=== PATIENT | male | born 1965 | race Caucasian/White ===

== ENCOUNTER → 2019-10-20 12:58 | Outpatient (CLI) | payer MEDICARE, SELFPAY ==
[2019-10-20 13:19] LABS: Basophils % 0.3 % (0.1-2.0); Eosinophils # 0.2 K/mm3 (0.0-0.4); Eosinophils % 2.7 % (0.1-12.0); Hematocrit 40.5 % (42.0-52.0); Hemoglobin 13.6 g/dL (14.1-18.0); Lymphocytes # 2.2 K/mm3 (0.7-4.5); Lymphocytes % 31.8 % (10-50); Mean Corpuscular HGB Conc 33.5 g/dL (31.8-35.4); Mean Corpuscular Hemoglobin 30.4 pg (27.0-31.2); Mean Corpuscular Volume 90.5 fl (80-94); Mean Platelet Volume 9.3 fl (7.4-10.4); Monocytes # 0.2 K/mm3 (0.1-1.0); Monocytes % 2.8 % (1.7-9.3); Neutrophils # 4.4 K/mm3 (1.8-7.8); Neutrophils % 62.4 % (37.0-80.0); Platelet Count 61 K/mm3 (142-424); Red Blood Count 4.48 M/mm3 (4.60-6.20)
[2019-10-20 13:43] LABS: Hemoglobin A1C 11.6 % (4.0-6.0)
[2019-10-20 13:48] LABS: Chloride 99 mmol/L (98-107); Potassium 4.6 mmoL/L (3.5-5.1); Sodium 135 mmol/L (136-145)
[2019-10-20 13:50] LABS: Blood Urea Nitrogen 20 mg/dl (9-20); Estimated Glomerular Filt Rate 77 ml/min (>60); GFR (African American) 94 ML/MIN (>60)
[2019-10-20 13:51] LABS: Alanine Aminotransferase 61 U/L (12-78); Albumin/Globulin Ratio 1.4 (1.1-1.8); Alkaline Phosphatase 100 U/L (38-126); Anion Gap 14.6 mEq/L (5-15); Aspartate Amino Transferase 66 U/L (17-59); Bilirubin,Total 0.4 mg/dl (0.2-1.3); Calcium 9.5 mg/dl (8.4-10.2); Carbon Dioxide 26 mmol/L (22.0-30.0); Cholesterol 215 mg/dl (140-200); Globulin 2.9 g/dL (1.3-3.2); Glucose 383 mg/dl (74-100); Total Protein,Serum 6.9 g/dl (6.3-8.2)
[2019-10-20 13:52] LABS: Chol/HDL Ratio 7.2 (1-3.5); HDL Cholesterol 30 mg/dl (40-60)
[2019-10-20 13:53] LABS: Triglycerides 411 mg/dl (30-150)
[2019-10-20 14:03] LABS: Direct LDL Cholesterol 136.53 mg/dL (100-129)
== END ==
PROVIDERS: Visit Provider Internal Medicine Adolescent Medicine
DX: D64.9 Anemia, unspecified (principal)
CPT/HCPCS: 36415; 80053; 80061; 83036; 85025

== ENCOUNTER → 2019-12-15 16:18 | Outpatient (CLI) | payer MEDICARE, SELFPAY ==
[2019-12-15 17:40] LABS: Hemoglobin A1C 10.5 % (4.0-6.0)
== END ==
PROVIDERS: Visit Provider Internal Medicine Adolescent Medicine
DX: E11.9 Type 2 diabetes mellitus without complications (principal)
CPT/HCPCS: 36415; 83036

== ENCOUNTER → 2020-03-24 15:13 | Outpatient (CLI) | payer MEDICARE, SELFPAY ==
--- NOTE | 2020-03-24 16:05 | XR_ITS ---
PROCEDURE: XR CHEST PORTABLE CLINICAL HISTORY: COVID OUTPATIENT Cough COMPARISON: No exams were available for comparison FINDINGS: The cardiomediastinal silhouette and pulmonary vascularity are within normal limits. The lungs are clear without infiltrates, suspicious nodules, or pleural effusions. Faint nodular opacity is noted in the left lower lung zone at the 5th rib anteriorly and in the right lower lung zone at the 6th rib anteriorly and could be due to nipple shadows and may be confirmed with nipple markers.. The right 1st rib is missing in its mid and posterior aspect and could be due to prior resection. Please correlate with surgical history. No acute bony abnormalities. IMPRESSION: As above, no acute finding Dictated by: Eligio Simental MD 03/24/2020 17:17 Eligio Simental MD in [place] 03/24/2020 17:17
[2020-03-24 16:44] LABS: Basophils % 0.3 % (0.1-2.0); Eosinophils # 0.3 K/mm3 (0.0-0.4); Eosinophils % 2.8 % (0.1-12.0); Hematocrit 47.3 % (42.0-52.0); Hemoglobin 15.9 g/dL (14.1-18.0); Lymphocytes # 1.9 K/mm3 (0.7-4.5); Lymphocytes % 16.9 % (10-50); Mean Corpuscular HGB Conc 33.7 g/dL (31.8-35.4); Mean Corpuscular Hemoglobin 29.9 pg (27.0-31.2); Mean Corpuscular Volume 88.7 fl (80-94); Monocytes # 0.4 K/mm3 (0.1-1.0); Monocytes % 3.7 % (1.7-9.3); Neutrophils # 8.4 K/mm3 (1.8-7.8); Neutrophils % 76.3 % (37.0-80.0); Platelet Count 124 K/mm3 (142-424); Red Blood Count 5.33 M/mm3 (4.60-6.20); Red Cell Distribution Width 14.4 % (11.5-17.5)
[2020-03-24 16:51] LABS: Alanine Aminotransferase 31 U/L (12-78); Albumin/Globulin Ratio 1.3 (1.1-1.8); Alkaline Phosphatase 132 U/L (38-126); Anion Gap 15.6 mEq/L (5-15); Aspartate Amino Transferase 37 U/L (17-59); Bilirubin,Total 0.7 mg/dl (0.2-1.3); Blood Urea Nitrogen 16 mg/dl (9-20); Calcium 10.2 mg/dl (8.4-10.2); Carbon Dioxide 30 mmol/L (22.0-30.0); Chloride 96 mmol/L (98-107); Estimated Glomerular Filt Rate 87 ml/min (>60); GFR (African American) 106 ML/MIN (>60); Globulin 3.9 g/dL (1.3-3.2); Glucose 227 mg/dl (74-100); Potassium 4.6 mmoL/L (3.5-5.1); Sodium 137 mmol/L (136-145); Total Protein,Serum 8.9 g/dl (6.3-8.2)
== END ==
PROVIDERS: PCP Internal Medicine Adolescent Medicine; Visit Provider Internal Medicine Adolescent Medicine
DX: Z20.828 Contact with and (suspected) exposure to other viral communicable diseases (principal); U07.1 COVID-19; J18.0 Bronchopneumonia, unspecified organism; R05 Cough
CPT/HCPCS: 36415; 71045; 80053; 85025; U0003

== ENCOUNTER 2020-04-15 10:43 | Inpatient (IN) | payer MEDICARE, SELFPAY ==
[2020-04-15] VITALS (23 sets, daily range): BP systolic 107–154; BP diastolic 61–91; PULSE 52–78; RESP 16–26; TEMP 36.5–36.7; O2SAT 95–99; BMI 32.5; BMI 30.1
--- NOTE | 2020-04-15 | IR_ITS ---
APPROVED REPORT Patient Location: Emergent Rn Pain Management: MONICA Guevara RT (R) PROCEDURES Left heart catheterization Left ventriculogram Selective coronary angiogram Drug-eluting stent deployment to the proximal and mid LAD Drug-eluting stent deployment to the circumflex arteries first obtuse marginal artery INDICATION Acute anterior ST elevation myocardial infarction, Coronary artery disease Informed consent was obtained prior to the procedure. COMPLICATIONS NONE Estimated Blood Loss: LESS THAN 10 ML TECHNIQUE One percent lidocaine used to anesthetize the right anterior aspect of the wrist. The right radial artery was accessed via the Seldinger technique. A 6 Syrian sheath was placed in the right radial artery. 2.5 mg of verapamil, 800 mcg of nitroglycerin, 1mg Lidocaine were given through the arterial sheath. A Poppa catheter was used to perform left heart catheterization left ventriculogram and selective coronary angiogram. Therapeutic heparin had already been administered in the ER and the ACT was therapeutic. The Poppa catheter was placed in the LAD and a Choice PT wire was placed distally. A 2.25 x 22 mm resolute Sarai stent was deployed in the mid LAD at 20 kayden reducing the severe disease to 0%. An additional 3 mm x 15 mm resolute sarai stent was then placed proximal to this yet still overlapping and deployed at 20 kayden reducing the severe stenosis to 0%. There was some angiographic jailing of the first second and third diagonal artery however each vessel had SAGE-3 flow and appeared essentially unchanged from the prestent ostial diagonal stenoses. After achieving excellent angiographic results the wire was pulled into the circumflex artery and a 2 mm balloon was used to predilate the stenosis. Following this a 2 mm x 12 mm resolute sarai stent was placed in the first obtuse marginal artery at 20 kayden reducing the severe stenosis to 0%. A Choice PT floppy wire was placed into the terminal obtuse marginal artery but it was apparent after several minutes of manipulation that this was a chronic occlusion therefore the apparatus was removed the sheath was removed good hemostasis was achieved using TR banding patient was transferred to the postop holding in stable condition. Patient did receive intracoronary nitroglycerin during the procedure. ANGIOGRAPHIC RESULTS The left main artery Has an ostial 20% stenosis The left anterior descending artery Has proximal 80% followed by an additional 80% stenosis followed by tandem 90% stenoses. The first second and third diagonal arteries are all' moderate in size and have stenoses in the ostial segment between 60 and 80%. After stenting the LAD was widely patent with SAGE-3 flow in all 3 diagonal arteries The circumflex artery Is a nondominant vessel. The first obtuse marginal artery has an ostial 90% stenosis while the second obtuse marginal artery is subtotally occluded The right coronary artery Is a large dominant vessel with diffuse moderate atheromatous plaque throughout its entire course there is proximal 50% and mid vessel 40% stenoses with distal 40% stenosis. The entire vessel has mild vascular ectasia The RAMIREZ ventriculogram reveals Preserved at 60% The left ventricular end-diastolic pressure 15 mmHg IMPRESSION Critical disease as described above Successful stenting the proximal to mid LAD severe to critical disease reduced to 0% with 2 contiguous drug-eluting stents Successful stenting of the first obtuse marginal artery critical disease reduced to 0% with 1 drug-eluting stent Chronically occluded second obtuse marginal artery Moderate diffuse vascular disease throughout the dominant right coronary with mild vascular ectasia P
--- NOTE | 2020-04-15 10:49 | ECG_ITS ---
APPROVED REPORT Exam: Resting ECG HR:63 bpm ECG Measurements Heart Rate 63 AXES MI 146 P 23 QRSd 86 QRS 16 QT 386 T 0 QTc 395 Conclusion Normal sinus rhythm Inferior infarct, age undetermined Abnormal ECG Electronically signed by : Damon Valenzuela, 04/19/2020 05:57:07
--- NOTE | 2020-04-15 10:54 | XR_ITS ---
PROCEDURE: XR CHEST PORTABLE CLINICAL HISTORY: chest pain COMPARISON: CR XR CHEST PORTABLE from 03/24/2020 FINDINGS: The cardiomediastinal silhouette and pulmonary vascularity are within normal limits. There are low lung volumes with atelectatic changes in the right lung base. There is increased density in the left lung base consistent with an area of infiltrate and or small effusion. Upper lobes are clear. No acute bony abnormalities. IMPRESSION: 1. Right basilar atelectasis. 2. Consolidation and/or effusion in the left lung base laterally Dictated by: Eligio Simental MD 04/15/2020 13:09 Eligio Simental MD in [place] 04/15/2020 13:09
--- NOTE | 2020-04-15 10:55 | PC.NURSE ---
dr amos paged
--- NOTE | 2020-04-15 10:55 | HMH.EDGENADL ---
ED Disposition Clinical Impression: STEMI (ST elevation myocardial infarction) Qualifiers: Involved coronary artery: unspecified coronary artery Qualified Code(s): I21.3 - ST elevation (STEMI) myocardial infarction of unspecified site Disposition: Still a Patient Condition on Discharge: Serious - Critical Care Critical Care Time: Yes Attestation: On , the high probability of a clinically significant, sudden or life threatening deterioration of the following system(s) required my full and direct attention, intervention and personal management. The time I documented below is in addition to time spent performing reported procedures but includes the following listed in this critical care notation. Total Critical Care Time: 15 Vital system(s) involved:: Circulatory Failure My critical care processes included: Assessment & monitoring of V/S, Initial and Re-exams, Data Review/Interpretation, Coordinating Care, Medication Orders and management, Documentation Medical Decision Making - Medical Records Medical records reviewed: Yes: I reviewed the patient's medical records. MR Comment: Positive COVID-19 test on 03/24/2020. No old EKGs. - Andre Inquiry Pt receiving controlled substance: Yes Andre was queried for this patient: No Reason not queried -: Emergent pt cond-no time Risks and benefits of using a controlled substance: were not discussed with pt by me Vital Signs: 04/15/20 10:43 04/15/20 11:00 Temperature 98 F Temperature Source Oral Pulse Rate [Radial] 62 62 Respiratory Rate 26 H 22 Blood Pressure [Right Arm] 154/82 H 119/61 Blood Pressure Mean [Right Arm] 106 80 Blood Pressure Position [Right Arm] Sitting Sitting 02 Sat by Pulse Oximetry 98 98 Oxygen Delivery Method Room Air Room Air - Lab Data Lab Results 04/15/20 10:45: WBC 10.3, RBC 5.32, Hgb 15.3, Hct 46.8, MCV 88.0, MCH 28.8, MCHC 32.8, RDW 13.8, Plt Count 373, MPV 8.6, Neut % (Auto) 56.9, Lymph % (Auto) 36.6, [place] % (Auto) 3.7, Eos % (Auto) 2.5, Baso % (Auto) 0.4, Neut # (Auto) 5.9, Lymph # (Auto) 3.8, [place] # (Auto) 0.4, Eos # (Auto) 0.3, Baso # (Auto) 0.0 04/15/20 10:45: Sodium 135 L, Potassium 4.1, Chloride 97 L, Carbon Dioxide 27, Anion Gap 15.1 H, BUN 25 H, Creatinine 0.90, Estimated Creat Clear 129, Estimated GFR 87, Est GFR ( Amer) 106, Glucose 521 H*, Calcium 10.7 H, Total Bilirubin 0.4, Direct Bilirubin 0.3, Conjugated Bilirubin 0.0, Indirect Bilirubin 0.1, Unconjugated Bilirubin 0.1, AST 30, ALT 34, Alkaline Phosphatase 109, Total Protein 8.0, Albumin 4.4 04/15/20 10:45: SARS-CoV-2 IgG Ab (Rapid) Positive A, SARS-CoV-2 IgM Ab (Rapid) Positive A Result diagrams: 04/15/20 10:45 04/15/20 10:45 Orders (Tests/Meds): ED MEDICATIONS Generic Name Dose Route Start Last Admin Trade Name Freq PRN Reason Stop Dose Admin Fentanyl Citrate 25 mcg 04/15/20 11:08 Fentanyl 100mcg/2ml Vial IV 04/16/20 11:08 Q3MINP PRN Moderate to Severe Pain Fentanyl Citrate 50 mcg 04/15/20 11:08 04/15/20 11:39 Fentanyl 100mcg/2ml Vial IV 04/16/20 11:08 50 mcg Q3MINP PRN Administration Moderate to Severe Pain Fentanyl Citrate 25 mcg 04/15/20 11:08 Fentanyl 250mcg/5ml Vial IV 04/16/20 11:08 Q3MINP PRN Moderate to Severe Pain Fentanyl Citrate 50 mcg 04/15/20 11:08 Fentanyl 250mcg/5ml Vial IV 04/16/20 11:08 Q3MINP PRN Moderate to Severe Pain Flumazenil 0.2 mg 04/15/20 11:08 Flumazenil 0.1mg/Ml 5ml Vial IV 04/15/20 23:00 NEEDED PRN Sedation Heparin Sodium (Porcine) 10,000 unit 04/15/20 11:08 Heparin 1,000 Units/Ml 10ml Vial (Automobile Service Advisor) IV 04/15/20 15:08 NEEDED PRN Emergency Box Tool Turret Lathe Set Up Operator Sodium Chloride 1,000 mls @ 999 mls/hr 04/15/20 11:15 04/15/20 10:55 Sod Chlor 0.9% 1000ml Bag IV 04/15/20 12:15 999 mls/hr .Q1H1M NOAH Administration Sodium Chloride 1,000 mls @ 25 mls/hr 04/15/20 11:15 Sod Chlor 0.9% 1000ml Bag IV 04/16/20 11:08 .Q25H NOAH
--- NOTE | 2020-04-15 10:56 | PC.NURSE ---
dr mcclure well on with Dr Tirado
[2020-04-15 11:03] LABS: Chloride 97 mmol/L (98-107); Potassium 4.1 mmoL/L (3.5-5.1); Sodium 135 mmol/L (136-145)
[2020-04-15 11:06] LABS: Alanine Aminotransferase 34 U/L (12-78); Albumin Level 4.4 g/dl (3.5-5.0); Alkaline Phosphatase 109 U/L (38-126); Anion Gap 15.1 mEq/L (5-15); Aspartate Amino Transferase 30 U/L (17-59); Bilirubin,Direct 0.3 mg/dl (0.0-0.4); Bilirubin,Indirect 0.1 mg/dL (0.0-0.9); Bilirubin,Total 0.4 mg/dl (0.2-1.3); Bilirubin,Unconjugated 0.1 mg/dL (0.0-1.1); Blood Urea Nitrogen 25 mg/dl (9-20); Calcium 10.7 mg/dl (8.4-10.2); Carbon Dioxide 27 mmol/L (22.0-30.0); Creatinine Clearance Estimated 129 mL/min (50-200); Estimated Glomerular Filt Rate 87 ml/min (>60); GFR (African American) 106 ML/MIN (>60)
[2020-04-15 11:08] LABS: Glucose 521 mg/dl (74-100)
--- NOTE | 2020-04-15 11:10 | PC.NURSE ---
to dental laboratory manager per stretcher
[2020-04-15 11:11] LABS: Basophils % 0.4 % (0.1-2.0); Eosinophils # 0.3 K/mm3 (0.0-0.4); Eosinophils % 2.5 % (0.1-12.0); Hematocrit 46.8 % (42.0-52.0); Hemoglobin 15.3 g/dL (14.1-18.0); Lymphocytes # 3.8 K/mm3 (0.7-4.5); Lymphocytes % 36.6 % (10-50); Mean Corpuscular HGB Conc 32.8 g/dL (31.8-35.4); Mean Corpuscular Hemoglobin 28.8 pg (27.0-31.2); Mean Platelet Volume 8.6 fl (7.4-10.4); Monocytes # 0.4 K/mm3 (0.1-1.0); Monocytes % 3.7 % (1.7-9.3); Neutrophils # 5.9 K/mm3 (1.8-7.8); Neutrophils % 56.9 % (37.0-80.0); Platelet Count 373 K/mm3 (142-424); Red Blood Count 5.32 M/mm3 (4.60-6.20); Red Cell Distribution Width 13.8 % (11.5-17.5); White Blood Count 10.3 K/mm3 (4.8-10.8)
[2020-04-15 11:37] LABS: Coronavirus 19 IgG Antibody Positive (Negative); Coronavirus 19 IgM Antibody Positive (Negative)
--- NOTE | 2020-04-15 11:38 | HMH.CNCARD ---
History of Present Illness Consult date: 04/15/20 Requesting physician: Damon Valenzuela Consult reason: chest pain Chief complaint: chest pain Additional Medical History:: 1. CAD A. CO with ДМИТРИЙ, 2016, Dr. Stone, [place], [place] 2. HTN 3. HLD 4. DM, insulin requiring A. Hgb A1c 10.5, 11/2019 5. COVID infection, PCR positive, 03/24/2020 History of present illness: 54 yo WM with known CAD, HTN, HLD and IDDM presented to ER via EMS for chest pain with bilateral arm pain reminiscent of prior [place] symptoms that started about 8 AM. One SL NTG en route. EKG concerning for STEMI and was sent to Dr. Bess for confirmation. STEMI alert called and pt taken to labor relations supervisor after receiving a second SL NTG, Brilinta, Heparin and ASA. Recent diagnosis of COVID infection earlier this month (03-27-20) [facility] History Medical History: Reports:: Coronary Artery Disease, Diabetes Mellitus Type 1, Hyperlipidemia, Hypertension *Have you ever received a pneumonia vaccine?: Yes *Have you received a flu vaccine this season?: Yes - *Social History *Occupational Status:: employed *Travel in the last 8 weeks: Inside the [place] Family Hx:: Non-contributory Meds Allergies Allergy/AdvReac Type Severity Reaction Status Date / Time codeine Allergy Unknown Verified 04/15/20 11:38 Exam Vital signs and Labs for Last 24 Hours: Temp Pulse Resp BP Pulse Ox 98 F 62 22 119/61 98 04/15/20 10:43 04/15/20 11:00 04/15/20 11:00 04/15/20 11:00 04/15/20 11:00 Laboratory Results - last 24 hr 04/15/20 10:45: WBC 10.3, RBC 5.32, Hgb 15.3, Hct 46.8, MCV 88.0, MCH 28.8, MCHC 32.8, RDW 13.8, Plt Count 373, MPV 8.6, Neut % (Auto) 56.9, Lymph % (Auto) 36.6, [place] % (Auto) 3.7, Eos % (Auto) 2.5, Baso % (Auto) 0.4, Neut # (Auto) 5.9, Lymph # (Auto) 3.8, [place] # (Auto) 0.4, Eos # (Auto) 0.3, Baso # (Auto) 0.0 04/15/20 10:45: Sodium 135 L, Potassium 4.1, Chloride 97 L, Carbon Dioxide 27, Anion Gap 15.1 H, BUN 25 H, Creatinine 0.90, Estimated Creat Clear 129, Estimated GFR 87, Est GFR ( Amer) 106, Glucose 521 H*, Calcium 10.7 H, Total Bilirubin 0.4, Direct Bilirubin 0.3, Conjugated Bilirubin 0.0, Indirect Bilirubin 0.1, Unconjugated Bilirubin 0.1, AST 30, ALT 34, Alkaline Phosphatase 109, Total Protein 8.0, Albumin 4.4 04/15/20 10:45: SARS-CoV-2 IgG Ab (Rapid) Positive A, SARS-CoV-2 IgM Ab (Rapid) Positive A I & O for Last 24 hours: Intake & Output 04/12/20 04/13/20 04/14/20 04/15/20 11:59 11:59 11:59 11:59 Weight 220 lb - Constitutional moderate distress - *Routine HEENT Exam Head: Present: normocephalic Eye: Present: EOMI, PERRL ENT: Present: mucous membranes moist - *Routine Neck Exam Present: supple. Absent: lymphadenopathy - *Routine Respiratory Exam Present: CTA bilaterally - *Routine Cardiovascular Exam Present: RRR - *Routine Abdominal Exam Present: soft, normoactive bowel sounds. Absent: tenderness - *Routine Extremities Exam Absent: cyanosis, clubbing, edema - *Routine Skin Exam Present: warm. Absent: rash - *Routine Neurological Exam Present: alert, oriented X3 Review of Systems - Review of Systems Review of systems:: pertinent systems reviewed and negative unless documented below - *Cardiovascular Reports chest pain Assessment and Plan (1) STEMI (ST elevation myocardial infarction) Status: Acute Qualifiers: Involved coronary artery: unspecified coronary artery Qualified Code(s): I21.3 - ST elevation (STEMI) myocardial infarction of unspecified site Category: Medical Code(s): I21.3 - ST elevation (STEMI) myocardial infarction of unspecified site (2) HTN (hypertension) Status: Acute Category: Medical Code(s): I10 - Essential (primary) hypertension (3) HLD (hyperlipidemia) Status: Acute Category: Medical Code(s): E78.5 - Hyperlipidemia, unspecified (4) DM (diabetes mellitus) Status: Acute Category: Medical Code(s): E11.9 - Type 2 diabetes mellitus w
[2020-04-15 11:42] LABS: Troponin I < 0.01 ng/ml (0.00-0.034)
[2020-04-15 12:24] LABS: Hemoglobin A1C 12.1 % (4.0-6.0)
--- NOTE | 2020-04-15 12:48 | PC.NURSE ---
Pt arrived to the floor at this time.
[2020-04-15 13:06] LABS: Adenovirus,PCR Not Detected (NotDetected); Coronavirus 229E Not Detected (NotDetected); Coronavirus NL63 Not Detected (NotDetected); Coronavirus OC43 Not Detected (NotDetected); Coronovirus HKU1,PCR Not Detected (NotDetected); Human Metapneumovirus Not Detected (NotDetected); Influenza A, PCR Not Detected (NotDetected); Influenza AH1, 2009 Not Detected (NotDetected); Influenza AH1, PCR Not Detected (NotDetected); Influenza AH3,PCR Not Detected (NotDetected); Influenza B, PCR Not Detected (NotDetected); Parainfluenza 1, PCR Not Detected (NotDetected); Rhinovirus/Enterovirus Not Detected (NotDetected)
[2020-04-15 13:07] LABS: Bordetella Pertussis Not Detected (NotDetected); Chlamydophila Pneumoniae, PCR Not Detected (NotDetected); Mycoplasma Pneumoniae, PCR Not Detected (NotDetected); Parainfluenza 2, PCR Not Detected (NotDetected); Parainfluenza 3, PCR Not Detected (NotDetected); Parainfluenza 4, PCR Not Detected (NotDetected); Respiratory Syncytial Virus Not Detected (NotDetected)
--- NOTE | 2020-04-15 14:00 | HMH.HP ---
*Admission Date: 04/15/20 *Chief complaint: STEMI *History of present illness: 54 yo WM with known CAD, HTN, HLD and IDDM presented to ER via EMS for chest pain with bilateral arm pain reminiscent of prior [place] symptoms that started about 8 AM. One SL NTG en route. EKG concerning for STEMI and was sent to Dr. Bess for confirmation. STEMI alert called and pt taken to clinical laboratory technician after receiving a second SL NTG, Brilinta, Heparin and ASA. Recent diagnosis of COVID infection earlier this month (03-27-20) Above note per cardiology. Patient gives me an extremely long, convoluted and difficult to understand history that since diagnosis with Covid he has not felt well and has had multiple chest pains reminiscent of previous pleurisy infections however yesterday he awoke at 3:30 AM and decided to clean out his freezer and began to have some chest pain which resolved after he ate 2 fried eggs and a couple of pieces of bread. He then slept well but when he awoke this morning drove his car to have it serviced and when he arrived at the mechanics began to have increasing anginal pain radiating into the arms and summoned EMS which resulted in the above procedure, he is now being monitored in our stepdown unit after having received 3 stents. He continues to have anterior chest pain and lots of malaise. [facility] History I have reviewed the patient's past medical history: Yes Medical History: Reports:: Coronary Artery Disease, Diabetes Mellitus Type 2, Hyperlipidemia, Hypertension, Myocardial Infarction Denies:: Cancer, Diabetes Mellitus Type 1, MRSA *Have you ever received a pneumonia vaccine?: Yes *Have you received a flu vaccine this season?: Yes Comment:: Medical noncompliance Other Surgeries: Yes: Cardiac Catheterization, Colonoscopy Amputation: No Fractures: No - *Social History Last grade of school completed: High school graduate Smoking Status: Never smoker Alcohol Intake: never *Occupational Status:: disabled Housing: house Household Members: spouse *Travel in the last 8 weeks: None Family Hx:: Cancer, Diabetes, Hyperlipidemia, Hypertension Review of Systems - Review of Systems Review of systems:: pertinent systems reviewed and negative unless documented below Patient reports loss of lethargy, fatigue, chest pain as noted. Reports that he feels horrible. Denies worsening shortness of air, denies GI symptoms with increasing ability to take fluids and. Denies skin rash, joint pains, neurologic changes. Meds Allergies Allergy/AdvReac Type Severity Reaction Status Date / Time codeine Allergy Unknown Verified 04/15/20 11:38 Exam Vital signs and Labs for Last 24 Hours: Temp Pulse Resp BP Pulse Ox 98.1 F 58 L 16 111/70 97 04/15/20 13:30 04/15/20 13:30 04/15/20 13:30 04/15/20 13:30 04/15/20 13:30 Laboratory Results - last 24 hr 04/15/20 10:45: WBC 10.3, RBC 5.32, Hgb 15.3, Hct 46.8, MCV 88.0, MCH 28.8, MCHC 32.8, RDW 13.8, Plt Count 373, MPV 8.6, Neut % (Auto) 56.9, Lymph % (Auto) 36.6, [place] % (Auto) 3.7, Eos % (Auto) 2.5, Baso % (Auto) 0.4, Neut # (Auto) 5.9, Lymph # (Auto) 3.8, [place] # (Auto) 0.4, Eos # (Auto) 0.3, Baso # (Auto) 0.0 04/15/20 10:45: Sodium 135 L, Potassium 4.1, Chloride 97 L, Carbon Dioxide 27, Anion Gap 15.1 H, BUN 25 H, Creatinine 0.90, Estimated Creat Clear 129, Estimated GFR 87, Est GFR ( Amer) 106, Glucose 521 H*, Calcium 10.7 H, Total Bilirubin 0.4, Direct Bilirubin 0.3, Conjugated Bilirubin 0.0, Indirect Bilirubin 0.1, Unconjugated Bilirubin 0.1, AST 30, ALT 34, Alkaline Phosphatase 109, Troponin I < 0.01, Total Protein 8.0, Albumin 4.4 04/15/20 10:45: SARS-CoV-2 IgG Ab (Rapid) Positive A, SARS-CoV-2 IgM Ab (Rapid) Positive A 04/15/20 10:45: Hemoglobin A1c 12.1 H I & O for Last 24 hours: Intake & Output 04/13/20 04/14/20 04/15/20 04/16/20 11:59 11:59 11:59 11:59 Weight 220 lb 204 lb Narrative: Patient is awake, responsive, oriented x4, he is an extremely unusual personalit
[2020-04-15 14:31] LABS: Coronavirus 19, PCR Detected (NotDetected)
--- NOTE | 2020-04-15 14:42 | HMH.PHAVTE ---
[facility] Pharmacy VTE Monitoring - Patient Demographics Admission date: 04/15/20 Report Date: 04/15/20 Time: 14:42 Allergies/Adverse Reactions: Patient Allergies codeine Allergy (Unknown, Verified 04/15/20 11:38) Height: 1.75 m Weight: 92.533 kg Patient Problems: Current Active Problems STEMI (ST elevation myocardial infarction) (Acute) HTN (hypertension) (Acute) HLD (hyperlipidemia) (Acute) DM (diabetes mellitus) (Acute) - VTE Risk Labs: VTE Related Lab Results Hgb 15.3 g/dL (14.1-18.0) 04/15/20 10:45 Hct 46.8 % (42.0-52.0) 04/15/20 10:45 Plt Count 373 K/mm3 (142-424) 04/15/20 10:45 BUN 25 mg/dl (9-20) H 04/15/20 10:45 Creatinine 0.90 mg/dl (0.66-1.25) 04/15/20 10:45 Estimated Creat Clear 129 mL/min (50-200) 04/15/20 10:45 Was VTE Risk Assessment Performed: Yes VTE Score: 3 VTE Risk Level: Low Risk Clinical Trial Participant: No - Prophylaxis VTE Prophylaxis Ordered?: Yes Types of VTE Prophylaxis: TEDS Knee High
[2020-04-15 14:55] LABS: CATHL Activated Clotting Time > 400 SEC (74-125)
[2020-04-15 14:56] LABS: CATHL Activated Clotting Time 386 SEC (74-125)
--- NOTE | 2020-04-15 15:07 | HMH.PHAINT ---
HOME MEDICATION LIST COMPLETED USING LIST FROM CLINIC PHARMACY
[2020-04-15 17:06] LABS: POC Glucose,Bedside 278 (70-110)
--- NOTE | 2020-04-15 20:08 | PC.NURSE ---
PT IS RESTING IN BED. RECEIVED PAIN MEDICATION FOR CHEST AND ARM DISCOMFORT AFTER ARRIVING BACK TO THE FLOOR FROM THE MAINFRAME PROGRAMMER. PT IS ALERT AND ORIENTED X4. LUNG SOUNDS DIMINISHED. ABDOMEN SOFT/NON TENDER WITH ACTIVE BOWEL SOUNDS. 2+ PALPABLE PULSES. DISCOLORATION NOTED TO BLE THAT PT STATES HAS BEEN THERE SINCE HE WAS IN HIS 20'S. 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 VSS. WILL CONTINUE TO MONITOR.
[2020-04-15 20:36] LABS: POC Glucose,Bedside 362 (70-110)
[2020-04-16] VITALS (8 sets, daily range): BP systolic 119–130; BP diastolic 62–89; PULSE 60–96; RESP 16–19; TEMP 36.6–36.9; O2SAT 94–97; BMI 30.2
--- NOTE | 2020-04-16 02:19 | PC.NURSE ---
PT CONT. TO C/O INTERMITTED CHEST PAIN. PRN MEDICATION EVENTUALLY WOULDNT HELP. DR. SALCEDO PAGED AND ORDERED PERCOCET 10MG Q4HR PRN, AND MORPHINE 4MG Q15 NEEDED. PT GIVEN 4MG OF MORPHINE AT 0150. PT STATES PAIN IS RELIEVED WHEN HE LAYS ON HIS RIGHT SIDE. PT IS NOW RESTING W/O COMPLAINTS.
[2020-04-16 06:16] LABS: Basophils % 0.3 % (0.1-2.0); Eosinophils # 0.3 K/mm3 (0.0-0.4); Eosinophils % 1.9 % (0.1-12.0); Hematocrit 40.8 % (42.0-52.0); Lymphocytes # 2.6 K/mm3 (0.7-4.5); Lymphocytes % 19.8 % (10-50); Mean Corpuscular HGB Conc 32.8 g/dL (31.8-35.4); Mean Corpuscular Volume 88.5 fl (80-94); Mean Platelet Volume 8.3 fl (7.4-10.4); Monocytes # 0.6 K/mm3 (0.1-1.0); Monocytes % 4.5 % (1.7-9.3); Neutrophils # 9.8 K/mm3 (1.8-7.8); Neutrophils % 73.6 % (37.0-80.0); Platelet Count 316 K/mm3 (142-424); Red Blood Count 4.61 M/mm3 (4.60-6.20); Red Cell Distribution Width 13.9 % (11.5-17.5); White Blood Count 13.4 K/mm3 (4.8-10.8)
[2020-04-16 06:29] LABS: Hemoglobin 13.5 g/dL (14.1-18.0)
[2020-04-16 06:37] LABS: POC Glucose,Bedside 206 (70-110)
--- NOTE | 2020-04-16 08:15 | HMH.ACPN2 ---
Internal Medicine - PN: Subj *Date: 04/16/20 *Time: 09:24 Interval history: Remained hemodynamically stable overnight. Requiring regular sliding scale insulin. Continues to have chest pain. On interview this morning, reports he has a stimulator and pain pump in his back. However his pain has breakthrough and the only thing that helps are Percocet . Denies fever, nausea, vomiting. Blood pressure appropriate. No evidence of arrhythmia overnight. Exam Vital signs and Labs for Last 24 Hours: Temp Pulse Resp BP Pulse Ox 98.5 F 91 H 17 127/83 97 04/16/20 04:00 04/16/20 06:00 04/16/20 06:00 04/16/20 06:00 04/16/20 06:00 Laboratory Results - last 24 hr 04/15/20 10:45: WBC 10.3, RBC 5.32, Hgb 15.3, Hct 46.8, MCV 88.0, MCH 28.8, MCHC 32.8, RDW 13.8, Plt Count 373, MPV 8.6, Neut % (Auto) 56.9, Lymph % (Auto) 36.6, [place] % (Auto) 3.7, Eos % (Auto) 2.5, Baso % (Auto) 0.4, Neut # (Auto) 5.9, Lymph # (Auto) 3.8, [place] # (Auto) 0.4, Eos # (Auto) 0.3, Baso # (Auto) 0.0 04/15/20 10:45: Sodium 135 L, Potassium 4.1, Chloride 97 L, Carbon Dioxide 27, Anion Gap 15.1 H, BUN 25 H, Creatinine 0.90, Estimated Creat Clear 129, Estimated GFR 87, Est GFR ( Amer) 106, Glucose 521 H*, Calcium 10.7 H, Total Bilirubin 0.4, Direct Bilirubin 0.3, Conjugated Bilirubin 0.0, Indirect Bilirubin 0.1, Unconjugated Bilirubin 0.1, AST 30, ALT 34, Alkaline Phosphatase 109, Troponin I < 0.01, Total Protein 8.0, Albumin 4.4 04/15/20 10:45: SARS-CoV-2 IgG Ab (Rapid) Positive A, SARS-CoV-2 IgM Ab (Rapid) Positive A 04/15/20 10:45: Hemoglobin A1c 12.1 H 04/15/20 12:33: Activated Clotting Time 386 H* 04/15/20 12:37: Chlamy pneumoniae PCR Not detected, Adenovirus (PCR) Not detected, B. pertussis DNA (PCR) Not detected, Coronavirus OC43 (PCR) Not detected, Coronavirus HKU1 (PCR) Not detected, Coronavirus 229E (PCR) Not detected, SARS-CoV-2 (PCR) Detected A, Coronavirus NL63 (PCR) Not detected, Human Metapneumovir PCR Not detected, Influenza A (H1) PCR Not detected, Influ A (H1N1/09) PCR Not detected, Influenza A (H3) PCR Not detected, Influenza Type A (PCR) Not detected, Influenza Type B (PCR) Not detected, M. pneumoniae (PCR) Not detected, Parainfluenza 1 (PCR) Not detected, Parainfluenza 2 (PCR) Not detected, Parainfluenza 3 (PCR) Not detected, Parainfluenza 4 (PCR) Not detected, RSV (PCR) Not detected, Entero/Rhino (PCR) Not detected 04/15/20 13:05: Activated Clotting Time > 400 H* 04/15/20 16:26: POC Glucose 278 H 04/15/20 20:08: POC Glucose 362 H* 04/16/20 05:55: POC Glucose 206 H 04/16/20 05:57: WBC 13.4 H D, RBC 4.61, Hgb 13.5 L D, Hct 40.8 L, MCV 88.5, MCH 29.0, MCHC 32.8, RDW 13.9, Plt Count 316, MPV 8.3, Neut % (Auto) 73.6, Lymph % (Auto) 19.8, [place] % (Auto) 4.5, Eos % (Auto) 1.9, Baso % (Auto) 0.3, Neut # (Auto) 9.8 H, Lymph # (Auto) 2.6, [place] # (Auto) 0.6, Eos # (Auto) 0.3, Baso # (Auto) 0.0 I & O for Last 24 hours: Intake & Output 04/13/20 04/14/20 04/15/20 04/16/20 23:59 23:59 23:59 23:59 Intake Total 720 / 1120 1050 / 1050 Output Total 400 / 400 250 / 250 Balance 320 / 720 800 / 800 Weight 92.533 kg 92.646 kg Narrative: - Constitutional average body habitus, disheveled, obese (BMI 30) - *Routine HEENT Exam Head: Present: normocephalic Eye: Present: EOMI, PERRL ENT: Present: mucous membranes moist - *Routine Neck Exam Present: supple. Absent: lymphadenopathy - *Routine Respiratory Exam Present: CTA bilaterally - *Routine Cardiovascular Exam Present: RRR - *Routine Abdominal Exam Present: soft, normoactive bowel sounds. Absent: tenderness - *Routine Extremities Exam Present: Minimal edema (Multiple brawny skin changes of prior edema with multiple varicosities). Absent: cyanosis, clubbing - *Routine Skin Exam Present: warm. Absent: rash - *Routine Neurological Exam Present: alert, oriented X3 Assessment and Plan (1) STEMI (ST elevation myocardial infarction) Status: Acute Qualifiers: Involved co
[2020-04-16 09:15] LABS: Anion Gap 11.3 mEq/L (5-15); Blood Urea Nitrogen 17 mg/dl (9-20); Carbon Dioxide 28 mmol/L (22.0-30.0); Chloride 104 mmol/L (98-107); Creatinine Clearance Estimated 135 mL/min (50-200); Estimated Glomerular Filt Rate 100 ml/min (>60); GFR (African American) 121 ML/MIN (>60); Glucose 225 mg/dl (74-100); Potassium 4.3 mmoL/L (3.5-5.1); Sodium 139 mmol/L (136-145)
[2020-04-16 09:45] LABS: Calcium 8.9 mg/dl (8.4-10.2)
--- NOTE | 2020-04-16 12:19 | [facility].DCSUM ---
General - General Admission date:: 04/15/20 Discharge date: 04/16/20 HPI HPI: 54 yo WM with known CAD, HTN, HLD and IDDM presented to ER via EMS for chest pain with bilateral arm pain reminiscent of prior [place] symptoms that started about 8 AM. One SL NTG en route. EKG concerning for STEMI and was sent to Dr. Bess for confirmation. STEMI alert called and pt taken to label machine operator after receiving a second SL NTG, Brilinta, Heparin and ASA. Recent diagnosis of COVID infection earlier this month (03-27-20) Above note per cardiology. Patient gives me an extremely long, convoluted and difficult to understand history that since diagnosis with Covid he has not felt well and has had multiple chest pains reminiscent of previous pleurisy infections however yesterday he awoke at 3:30 AM and decided to clean out his freezer and began to have some chest pain which resolved after he ate 2 fried eggs and a couple of pieces of bread. He then slept well but when he awoke this morning drove his car to have it serviced and when he arrived at the mechanics began to have increasing anginal pain radiating into the arms and summoned EMS which resulted in the above procedure, he is now being monitored in our stepdown unit after having received 3 stents. He continues to have anterior chest pain and lots of malaise. Hospital Course Hospital Course: Mr. Small was admitted with STEMI. Left heart cath performed a placement of 5 stents. Improvement in coronary artery flow. Initiated on dual antiplatelet therapy, beta-evens, SPENCER inhibitor, statin, aspirin. Did well overnight without any abnormal cardiac arrhythmias. Continues to have chest pain however this appears to be an acute on chronic issue. Moderately managed with p.o. pain meds. Patient remained hemodynamically stable, on room air, afebrile, without any bleeding issues. Meeting criteria for discharge home to continue convalescence from as Covid infection 3 weeks ago and continued general inflammation and fatigue. Managed on sliding scale insulin during admission. Plan to address uncontrolled diabetes in the outpatient setting. Patient additionally seems quite anxious. was concerned for his anxiety. Will address anxiety and potentially start medication in the outpatient setting and follow-up. Will follow up with our office in the next week Objective Vital signs: Temp Pulse Resp BP Pulse Ox 97.9 F 86 16 129/89 97 04/16/20 12:00 04/16/20 12:00 04/16/20 12:00 04/16/20 12:00 04/16/20 12:00 Narrative: - Constitutional average body habitus, disheveled, obese (BMI 30) - *Routine HEENT Exam Head: Present: normocephalic Eye: Present: EOMI, PERRL ENT: Present: mucous membranes moist - *Routine Neck Exam Present: supple. Absent: lymphadenopathy - *Routine Respiratory Exam Present: CTA bilaterally - *Routine Cardiovascular Exam Present: RRR - *Routine Abdominal Exam Present: soft, normoactive bowel sounds. Absent: tenderness - *Routine Extremities Exam Present: Minimal edema (Multiple brawny skin changes of prior edema with multiple varicosities). Absent: cyanosis, clubbing - *Routine Skin Exam Present: warm. Absent: rash - *Routine Neurological Exam Present: alert, oriented X3 Results Labs on day of discharge: Labs from last 24 hours 04/16/20 04/16/20 04/16/20 05:57 05:57 05:55 WBC 13.4 H D RBC 4.61 Hgb 13.5 L D Hct 40.8 L MCV 88.5 MCH 29.0 MCHC 32.8 RDW 13.9 Plt Count 316 MPV 8.3 Neut % (Auto) 73.6 Lymph % (Auto) 19.8 [place] % (Auto) 4.5 Eos % (Auto) 1.9 Baso % (Auto) 0.3 Neut # (Auto) 9.8 H Lymph # (Auto) 2.6 [place] # (Auto) 0.6 Eos # (Auto) 0.3 Baso # (Auto) 0.0 Activated Clotting Time Sodium 139 Potassium 4.3 Chloride 104 Carbon Dioxide 28 Anion Gap 11.3 BUN 17 D Creatinine 0.80 Estimated Creat Clear 135 Estimated GFR 100 Es
[2020-04-16 12:21] LABS: POC Glucose,Bedside 243 (70-110)
--- NOTE | 2020-04-16 13:43 | [facility]H.PHACLD ---
Mirza Small has received discharge medication counseling on the following medications: PATIENT CURRENTLY IS TAKING CRESTOR 40 MG HS, METOPROLOL SUCCINATE 50 MG DAILY, ASPIRIN 81 MG EC DAILY, AND LISINOPRIL 5 MG DAILY. MD ADDING BRILINTA 90 MG BID.
--- NOTE | 2020-04-16 15:01 | PC.NURSE ---
PT WAS DISCHARGED HOME WITH NEW PRESCRIPTIONS BRILLINTA AND OXYCODONE. PT WILL FOLLOW UP WITH CARDIOLOGY AND . PT'S STATED SHE FELT THAT HER NEEDED PROFESSIONAL HELP AND NEEDED TO BE MEDICATED FOR HIS DEPRESSION AND ANGER. STATED THAT LIVING WITH HER THE LAST FEW WEEKS HAS NOT BEEN EASY. SHE STATES HE BLAMES HER FOR THE REASON HE IS SICK. WAS INFORMED OF 'S CONCERNS AND HE STATED THEY WOULD ADDRESS IT AT HIS FOLLOW UP APPOINTMENT.
--- NOTE | 2020-04-16 15:19 | [facility].PNCARD ---
Subjective Date: 04/16/20 Time: 15:19 Principal diagnosis: STEMI Interval history: Patient reportedly was stable and requested to go home today. After speaking with Dr. Bess, Dr. Dillard did release the patient home prior to my visit today. Exam Vital signs and Labs for Last 24 Hours: Temp Pulse Resp BP Pulse Ox 97.9 F 86 16 129/89 97 04/16/20 12:00 04/16/20 12:00 04/16/20 12:00 04/16/20 12:00 04/16/20 12:00 Laboratory Results - last 24 hr 04/15/20 16:26: POC Glucose 278 H 04/15/20 20:08: POC Glucose 362 H* 04/16/20 05:55: POC Glucose 206 H 04/16/20 05:57: WBC 13.4 H D, RBC 4.61, Hgb 13.5 L D, Hct 40.8 L, MCV 88.5, MCH 29.0, MCHC 32.8, RDW 13.9, Plt Count 316, MPV 8.3, Neut % (Auto) 73.6, Lymph % (Auto) 19.8, [place] % (Auto) 4.5, Eos % (Auto) 1.9, Baso % (Auto) 0.3, Neut # (Auto) 9.8 H, Lymph # (Auto) 2.6, [place] # (Auto) 0.6, Eos # (Auto) 0.3, Baso # (Auto) 0.0 04/16/20 05:57: Sodium 139, Potassium 4.3, Chloride 104, Carbon Dioxide 28, Anion Gap 11.3, BUN 17 D, Creatinine 0.80, Estimated Creat Clear 135, Estimated GFR 100, Est GFR ( Amer) 121, Glucose 225 H D, Calcium 8.9 D 04/16/20 12:14: POC Glucose 243 H I & O for Last 24 hours: Intake & Output 04/14/20 04/15/20 04/16/20 04/17/20 11:59 11:59 11:59 11:59 Intake Total 2250 / 2250 720 / 720 Output Total 650 / 650 Balance 1600 / 1600 720 / 720 Weight 220 lb 204 lb 4 oz Progress Note: A&P (1) STEMI (ST elevation myocardial infarction) Status: Acute (2) HTN (hypertension) Status: Acute (3) HLD (hyperlipidemia) Status: Acute (4) DM (diabetes mellitus) Status: Acute (5) COVID-19 Status: Acute (6) Hyperglycemia due to type 2 diabetes mellitus Status: Acute (7) Class 1 obesity Status: Chronic (8) Chronic low back pain Status: Chronic Assessment and Plan for All Diagnoses:: Discharge instructions per Dr. Dillard. Patient was on DAPT, yovani, beta-evens and statin therapy.
== END 2020-04-16 14:40 | disposition home or self-care (01) | DRG 246 ==
LOC: ER 11:10 → CATHLAB 11:11 → 2ND 12:12
PROVIDERS: Physician Assistant; Admitting Provider Internal Medicine Adolescent Medicine; Emergency Provider Emergency Medicine; PCP Internal Medicine Adolescent Medicine; Referring Provider Internal Medicine; Visit Provider Internal Medicine Adolescent Medicine
PROC: 027136Z Dilation of Coronary Artery, Two Arteries with Three Drug-eluting Intraluminal Devices, Percutaneous Approach (ICD-10-PCS; principal; 2020-04-15 13:05)
DX: I21.02 ST elevation (STEMI) myocardial infarction involving left anterior descending coronary artery (principal); U07.1 COVID-19; I10 Essential (primary) hypertension; E11.65 Type 2 diabetes mellitus with hyperglycemia; Z79.4 Long term (current) use of insulin; Z79.82 Long term (current) use of aspirin; Z79.899 Other long term (current) drug therapy
CPT/HCPCS: 36415; 71045; 80048; 80076; 82962; 83036; 84484; 85025; 85347; 86328; 87581; 87633; 87798; 92929; 92941; 93005; 93458; 96365; 96367; 99152; 99153; 99284; C1725; C1769; C1876; C9601; C9606; J1644; Q9967; U0003

== ENCOUNTER → 2020-05-05 14:16 | Outpatient (CLI) | payer MEDICARE, SELFPAY ==
--- NOTE | 2020-05-05 14:25 | CA_ITS ---
APPROVED REPORT EXAM: Comprehensive 2D, Doppler, and color-flow Echocardiogram Alterations Sewer: Deb Galvan RCS, RVS Ht: 5 ft 9 in Wt: 206lbs BSA: 2.09 BP: 132/79 mmHg Indications: cad-STEMI w/ 5 coronary stents, HTN, HLD 2D Dimensions IVSd 0.92 cm LVEF (Visual) 77.90 % PWd 0.66 cm LVEF (Fields's) 71.20 % LVDd 5.29 cm LV Volume 147.10 mL LVDs 2.81 cm LA Volume 46.20 mL Aortic Root 3.14 cm LA Volume Index 21.60 mL/m2 (M/F) 16-34 Left Atrium 3.98 cm LVOT 1.84 cm (M/F) 1.5-2.5 M-Mode Dimensions RVDd 3.90 cm (0.9-2.6) LA Diam 4.36 cm (1.9-4.0) LVDd 4.79 cm (3.5-5.7) Ao Diam 3.63 cm (2.0-3.7) LVDs 2.98 cm (3.5-5.7) IVSd 0.93 cm (0.6-1.1) PWd 0.76 cm (0.6-1.1) EF (Teich) 67.90% EPSs 0.48 cm FS 37.80% EDV (Teich) 107.00 mL TAPSE 2.04 (<1.7) ESV (Teich) 34.40 mL LV Diastology E Decel Time 173.00 (160-240 msec) E/A Ratio 0.88 MED E' 4.60 (< 7 cm/sec) MED A' 9.40 cm/s E'/MED E' Ratio 11.35 (>14) LAT E' 6.90 (<10 cm/sec) LAT A' 9.40 cm/s E/LAT E' Ratio 7.57 (>14) Aortic Valve AI PHT 540.00 ms AO Peak GR. 7.60 mmHg Mitral Valve MV E Max Pankaj. 52.00 (40-130 cm/s) MV A Velocity 59.00 (40-130 cm/s) E/A Ratio 0.88 MV Decel. Time 173.00 (160-240 ms) MV PHT 51.00 ms Pulmonary Valve PV Peak Velocity 124.00 (50-150 cm/s) AZ End VMAX 130.00 cm/s Tricuspid Valve TR P. Velocity 287.00 cm/s RAP Estimate 10.00 mmHg RVSP 43.00 mmHg Left Ventricle Left atrium is mildly enlarged, left ventricle is normal size, mild concentric left ventricular hypertrophy, visually estimated ejection fraction 50%, there is moderate hypokinesis involving the inferior basal and basal septal wall. Grade 1 diastolic dysfunction seen without tissue Doppler evidence of raise left atrial pressure. Right Ventricle Right atrium and right ventricle mildly enlarged with normal contractility. Aortic Valve Aortic valve is minimally thickened and fibrosed, there is no aortic stenosis or aortic insufficiency. Mitral Valve Mitral valve is grossly normal, there is trace mitral regurgitation. Tricuspid Valve Tricuspid valve grossly normal, there is trace tricuspid regurgitation, tricuspid regurgitation jet velocity is inadequate for calculation of the right ventricular systolic pressure. Pulmonic Valve Pulmonic valve is poorly visualized. Great Vessels Aortic root is normal size. Pericardium No significant pericardial effusion noted. Conclusion 1. Biatrial enlargement, normal left ventricular size, mild concentric left ventricular hypertrophy, visually estimated ejection fraction 50% with segmental wall motion abnormality described above, grade 1 diastolic dysfunction seen without tissue Doppler evidence of raise left atrial pressure. 2. Mildly enlarged right ventricle with normal contractility. 3. Trace mitral and tricuspid regurgitation. 4. No significant pericardial effusion noted. Electronically signed by : Tony Resendiz, 05/06/2020 14:51:28
== END ==
PROVIDERS: PCP Internal Medicine Adolescent Medicine; Visit Provider Physician Assistant
DX: E11.69 Type 2 diabetes mellitus with other specified complication (principal); E78.49 Other hyperlipidemia; I10 Essential (primary) hypertension; I21.3 ST elevation (STEMI) myocardial infarction of unspecified site; I25.10 Atherosclerotic heart disease of native coronary artery without angina pectoris; R94.31 Abnormal electrocardiogram [ECG] [EKG]; Z79.4 Long term (current) use of insulin
CPT/HCPCS: 93306

== ENCOUNTER 2020-07-02 22:36 | Emergency (ER) | payer MEDICARE, OTHER, SELFPAY ==
--- NOTE | 2020-07-02 22:16 | ECG_ITS ---
APPROVED REPORT Exam: Resting ECG HR:81 bpm ECG Measurements Heart Rate 81 AXES AL 158 P 56 QRSd 84 QRS 52 QT 386 T 43 QTc 448 Conclusion Normal sinus rhythm Normal ECG Electronically signed by : Damon Valenzuela, 07/04/2020 07:27:55
[2020-07-02 22:37] VITALS: BP 140/89; PULSE 89; RESP 21; TEMP 36.9; O2SAT 98; BMI 31.0
--- NOTE | 2020-07-02 22:52 | XR_ITS ---
PROCEDURE: XR CHEST 2V CLINICAL HISTORY: chest pain COMPARISON: CR XR CHEST PORTABLE from 03/24/2020 CR XR CHEST PORTABLE from 04/15/2020 FINDINGS: The cardiomediastinal silhouette and pulmonary vascularity are within normal limits. Vague nodular opacity in left lung base possibly due to nipple shadow and overlapping granuloma/summation artifact. Follow-up may confirm. There are other granulomas present. No lobar consolidation or collapse. Epidural stimulator device in the lower thoracic region. IMPRESSION: No acute finding. Possible left lower lobe nodule. Follow-up may confirm stability Dictated by: Eligio Simental MD 07/03/2020 08:05 Eligio Simental MD in [place] 07/03/2020 08:05
[2020-07-02 23:04] LABS: Basophils # 0.1 K/mm3 (0-0.2); Basophils % 0.4 % (0.1-2.0); Eosinophils # 0.1 K/mm3 (0.0-0.4); Hematocrit 39.7 % (42.0-52.0); Hemoglobin 12.9 g/dL (14.1-18.0); Lymphocytes # 3.4 K/mm3 (0.7-4.5); Lymphocytes % 32.9 % (10-50); Mean Corpuscular HGB Conc 32.5 g/dL (31.8-35.4); Mean Corpuscular Hemoglobin 28.3 pg (27.0-31.2); Mean Corpuscular Volume 87.2 fl (80-94); Mean Platelet Volume 7.8 fl (7.4-10.4); Monocytes # 0.5 K/mm3 (0.1-1.0); Monocytes % 4.5 % (1.7-9.3); Neutrophils # 6.3 K/mm3 (1.8-7.8); Neutrophils % 61.2 % (37.0-80.0); Platelet Count 161 K/mm3 (142-424); Red Blood Count 4.55 M/mm3 (4.60-6.20); White Blood Count 10.2 K/mm3 (4.8-10.8)
[2020-07-02 23:08] LABS: Anion Gap 14.7 mEq/L (5-15); Blood Urea Nitrogen 19 mg/dl (9-20); Calcium 9.6 mg/dl (8.4-10.2); Carbon Dioxide 25 mmol/L (22.0-30.0); Chloride 106 mmol/L (98-107); Creatinine Clearance Estimated 123 mL/min (50-200); Estimated Glomerular Filt Rate 87 ml/min (>60); GFR (African American) 106 ML/MIN (>60); Glucose 203 mg/dl (74-100); Potassium 4.7 mmoL/L (3.5-5.1); Sodium 141 mmol/L (136-145)
[2020-07-02 23:13] LABS: C-Reactive Protein 7.5 mg/L (0-4)
[2020-07-02 23:23] LABS: Troponin I < 0.01 ng/ml (0.00-0.034)
[2020-07-02 23:27] LABS: Procalcitonin 0.137 ng/mL (0.0-2.0)
[2020-07-02 23:31] LABS: Erythrocyte Sedimentation Rate 27 mm/hr (0-20)
--- NOTE | 2020-07-03 00:30 | [facility].EDCP ---
ED Disposition Clinical Impression: Chest pain Qualifiers: Chest pain type: precordial pain Qualified Code(s): R07.2 - Precordial pain Disposition: Home, Self-Care Condition on Discharge: Good Instructions: DI for Chest Pain Additional Instructions: see pcp for follow up and recheck if needed - see card sunday - resume meds Referrals: Damon Valenzuela MD [Primary Care Provider] - - Critical Care Critical Care Time: No Attestation: On 07/02/20, the high probability of a clinically significant, sudden or life threatening deterioration of the following system(s) required my full and direct attention, intervention and personal management. The time I documented below is in addition to time spent performing reported procedures but includes the following listed in this critical care notation. Medical Decision Making - Medical Records Medical records reviewed: Yes: I reviewed the patient's medical records. - Andre Inquiry Pt receiving controlled substance: No Vital Signs: 07/02/20 22:37 Temperature 98.4 F Temperature Source Oral Pulse Rate [Right] 89 Respiratory Rate 21 Blood Pressure [Right Arm] 140/89 Blood Pressure Mean [Right Arm] 106 Blood Pressure Source [Right Arm] Automatic Cuff 02 Sat by Pulse Oximetry 98 Oxygen Delivery Method Room Air - Lab Data Lab results reviewed: Yes: I reviewed the patient's lab results. Lab Results 07/02/20 22:30: WBC 10.2, RBC 4.55 L, Hgb 12.9 L, Hct 39.7 L, MCV 87.2, MCH 28.3, MCHC 32.5, RDW 14.0, Plt Count 161, MPV 7.8, Neut % (Auto) 61.2, Lymph % (Auto) 32.9, [place] % (Auto) 4.5, Eos % (Auto) 1.0, Baso % (Auto) 0.4, Neut # (Auto) 6.3, Lymph # (Auto) 3.4, [place] # (Auto) 0.5, Eos # (Auto) 0.1, Baso # (Auto) 0.1, ESR 27 H 07/02/20 22:30: Sodium 141, Potassium 4.7, Chloride 106, Carbon Dioxide 25, Anion Gap 14.7, BUN 19, Creatinine 0.90, Estimated Creat Clear 123, Estimated GFR 87, Est GFR ( Amer) 106, Glucose 203 H, Calcium 9.6, Troponin I < 0.01, C-Reactive Protein 7.5 H, Procalcitonin 0.137 07/03/20 01:20: Troponin I < 0.01 Result diagrams: 07/02/20 22:30 07/02/20 22:30 Orders (Tests/Meds): ED MEDICATIONS Generic Name Dose Route Start Last Admin Trade Name Freq PRN Reason Stop Dose Admin Sodium Chloride 1,000 mls @ 999 mls/hr 07/02/20 23:45 07/02/20 23:42 Sod Chlor 0.9% 1000ml Bag IV 07/03/20 00:45 999 mls/hr .Q1H1M NOAH Administration Sodium Chloride 8 ml 07/03/20 00:06 Sodium Chloride 0.9% 10ml Vial IV 08/02/20 00:05 NEEDED PRN dilute pepcid Discontinued Medications Generic Name Dose Route Start Last Admin Trade Name Freq PRN Reason Stop Dose Admin Aspirin 324 mg 07/02/20 23:40 07/02/20 23:42 Aspirin 81mg Chewable Tablet PO 07/02/20 23:41 324 mg ONCE ONE Administration Famotidine 20 mg 07/03/20 00:06 07/03/20 00:07 Famotidine 20mg/2ml Vial IV 07/03/20 00:07 20 mg ONCE ONE Administration Metoclopramide HCl 10 mg 07/02/20 23:40 07/02/20 23:42 Metoclopramide Hcl 10mg/2ml Vial IVP 07/02/20 23:41 10 mg ONCE ONE Administration Nitroglycerin 0.4 mg 07/02/20 22:54 07/02/20 22:55 Nitroglycerin 0.4mg Sl Tablet SL 07/02/20 22:55 1 tab ONCE ONE Administration Ondansetron HCl 4 mg 07/02/20 23:40 07/02/20 23:42 Ondansetron 4mg/2ml Vial IV 07/02/20 23:41 4 mg ONCE ONE Administration ORDERS Category Date Time Status CXR 2 view (NOT portable) [XR chest 2V] Stat Exams 07/02/20 22:52 Taken Covid-19 Nasal PCR ([facility]) Routine Lab 07/03/20 00:00 Received Troponin I Q3H Lab 07/03/20 05:00 Ordered - Radiology Data #1 Image(s): Chest Image Reviewed: Yes I reviewed the patient's radiology image Preliminary Findings: Normal/NAD - ECG Data Tracing #1 Normal Sinus Rhythm: Yes Ischemic changes: non-specific ST-T wave changes - Reevaluation(s) Time: 02:35 Reevaluation #1: doing better Medical Decision Narrative: pt doing better and card enz ox
[2020-07-03 01:53] LABS: Troponin I < 0.01 ng/ml (0.00-0.034)
[2020-07-03 02:30] VITALS: BP 119/69; PULSE 65; RESP 14; O2SAT 98
--- NOTE | 2020-07-03 02:40 | PC.NURSE ---
called pt's and left vm
[2020-07-03 02:47] VITALS: BP 117/69; PULSE 66; RESP 17; TEMP 36.7; O2SAT 99
--- NOTE | 2020-07-03 03:45 | PC.NURSE ---
notified after numerous attempts that patient was ready to be discharged
[2020-08-30 11:15] LABS: POC Glucose,Bedside 178 (70-110)
== END 2020-07-03 04:52 | disposition home or self-care (01) ==
PROVIDERS: Emergency Provider Emergency Medicine; PCP Internal Medicine Adolescent Medicine
DX: R07.2 Precordial pain (principal); Z20.822 Contact with and (suspected) exposure to COVID-19; E11.65 Type 2 diabetes mellitus with hyperglycemia; I25.10 Atherosclerotic heart disease of native coronary artery without angina pectoris; I10 Essential (primary) hypertension; I25.2 Old myocardial infarction; Z79.899 Other long term (current) drug therapy
CPT/HCPCS: 71046; 80048; 82962; 84145; 84484; 85025; 85651; 86140; 93005; 96365; 96375; 99282; J2405; U0003

== ENCOUNTER → 2020-07-12 07:17 | Outpatient (CLI) | payer MEDICARE, SELFPAY ==
--- NOTE | 2020-07-12 07:31 | CT_ITS ---
PROCEDURE INFORMATION: Exam: CT Thoracic Spine Without Contrast Exam date and time: 07/12/2020 7:31 AM Age: 54 years old Clinical indication: Pain in thoracic spine; Additional info: Thoracic pain TECHNIQUE: Imaging protocol: Computed tomography images of the thoracic spine without contrast. Radiation optimization: All CT scans at this facility use at least one of these dose optimization techniques: automated exposure control; mA and/or kV adjustment per patient size (includes targeted exams where dose is matched to clinical indication); or iterative reconstruction. COMPARISON: No relevant prior studies available. FINDINGS: Tubes, catheters and devices: A spinal stimulator device is present. The leads terminate at the inferior T9 level. Vertebrae: Bone mineralization is decreased, suggestive of osteopenia. No acute fracture is identified. Alignment is anatomic. Discs/Spinal canal/Neural foramina: No significant spinal canal stenosis. Soft tissues: Unremarkable. Lungs: Several calcified granulomas are noted. Several small (less than 8 mm) noncalcified pulmonary nodules are noted in the lungs.For patients at low risk (minimal or absent history of smoking and of other known risk factors), recommend CT Chest at 3-6 months, then consider CT Chest at 18-24 months. For patients at high risk (history of smoking or of other known risk factors), recommend CT Chest at 3-6 months, then CT Chest at 18-24 months. (Reference: Laurel H, et al. Guidelines for Management of Incidental Pulmonary Nodules Detected on CT Images: From the Fleischner Society 2017. Radiology. 2017;284(1):228-243. IMPRESSION: 1. No acute abnormality. 2. Chronic findings as discussed above.
--- NOTE | 2020-07-12 07:31 | CT_ITS ---
PROCEDURE INFORMATION: Exam: CT Lumbar Spine Without Contrast Exam date and time: 07/12/2020 7:31 AM Age: 54 years old Clinical indication: Low back pain; Additional info: Lumbar spondylosis TECHNIQUE: Imaging protocol: Computed tomography images of the lumbar spine without contrast. Radiation optimization: All CT scans at this facility use at least one of these dose optimization techniques: automated exposure control; mA and/or kV adjustment per patient size (includes targeted exams where dose is matched to clinical indication); or iterative reconstruction. COMPARISON: No relevant prior studies available. FINDINGS: Tubes, catheters and devices: A spinal stimulator device and an intrathecal pain pump is present. The stimulator device leads terminate at the inferior T9 level, as seen on the thoracic spine CT. The pain pump lead terminates at the T10 level. Vertebrae: No acute fracture. Normal alignment. Discs/Spinal canal/Neural foramina: Mild degenerative changes of the lumbar spine are present. There is no significant spinal canal stenosis or severe neural foraminal narrowing. Kidneys and ureters: A punctate nonobstructing stone is present within the right kidney. Soft tissues: Unremarkable. IMPRESSION: 1. No acute abnormality. 2. Chronic findings as discussed above.
== END ==
PROVIDERS: PCP Internal Medicine Adolescent Medicine; Visit Provider Anesthesiology Pain Medicine
DX: M54.6 Pain in thoracic spine (principal); M47.816 Spondylosis without myelopathy or radiculopathy, lumbar region
CPT/HCPCS: 72128; 72131

== ENCOUNTER → 2020-08-05 06:36 | Outpatient (CLI) | payer MEDICARE, SELFPAY ==
--- NOTE | 2020-08-05 06:36 | NM_ITS ---
APPROVED REPORT Exam: Nuclear Stress Test Indication: chest pain..fatigue Patient Location: Outpatient Stress Tech: Nancy Barrera [place] Tech:Sarai Krueger SARYGlen RT(R)(N) Ht: 5 ft 9 in Wt: 220 lbs HR: 64 bpm BP: 120/70 mmHg BSA: 2.15 m2 BMI: 32.4 History: chest pain..fatigue Procedure: Patient received a 0.4 mg of intravenous Lexiscan, resting heart rate 64 bpm, resting blood pressure 120/70 mmHg, with Lexiscan maximum heart rate achived was 87 bpm which is Less than 85 % of the maximum predicted heart rate and blood pressure was 132/73 mmHg. With Lexiscan, patient denied any complaint of chest pain. Electrocardiogram Resting electrocardiogram showed sinus rhythm, with Lexiscan there is less than 1.[address] segment depression noted for the baseline EKG. The EKG portion of the Lexiscan is nondiagnostic. Cardiac Stress and Resting SPECT Images: Cardiac Stress and Resting SPECT images were obtained using technetium 99m Myoview 31.2 mCi stress and 10.72 mCi at rest. Gated SPECT analysis of segmental wall motion and calculation of the ejection fraction also done. Prone images were also obtained. Cardiac stress and resting SPECT images showed reversible ischemia involving the anterior apical and inferolateral wall suggestive of multivessel coronary artery disease, computer derived ejection fraction is 51% with moderate anterior apical wall hypokinesis. Right ventricle is normal size and contractility. Conclusion: 1. The EKG portion of the Lexiscan is nondiagnostic. 2. Scintigraphic evidence of reversible ischemia involving the anterior apical and inferolateral wall suggestive of multivessel coronary artery disease, computer derived ejection fraction 51% with segmental wall motion abnormality described above, right ventricle is normal size and contractility. 3. Abnormal Lexiscan Myoview study. Electronically signed by : Tony Resendiz, 08/05/2020 11:15:40
--- NOTE | 2020-08-05 06:36 | CA_ITS ---
APPROVED REPORT Exam: Pharmacologic Technologist: Nancy Barrera, Stress Nurse: YASSINE Ht: 5 ft 9 in Wt: 214 lbs BSA: 2.13 m2 HR: 64 bpm BP: 120/70 mmHg Medical History Medical History: HTN, , Hyperlipidemia, Diabetes Medications: Aspirin,,,,, Metoprolol,,,,, Diazepam,,,,, Terbinafin,,,,, Imdur,,,,, TicaAGRELOR,,,,, Sertaline,,,,, PantoprazLE,,,,, RoSUVASatin,,,,, SucCINATE,,,,, INSULIN GLARGINE,,,,, LisinoRIL,,,,, Cardiac Risk Factors: HTN, Hyperlipidemia, Diabetes Stress Test Details Test: LEXISCAN HR Resting HR: 67 bpm Max Heart Rate (APMHR): 164.387121 bpm Max HR Achieved: 94 bpm Target HR (85% APMHR): 139.439442 bpm % of APMHR: 57.32 Recovery HR: 75 bpm BP Resting BP: 120/70 mmHg Max BP: 132/72 mmHg Recovery BP: 119.0/71.0 mmHg ECG Resting ECG: NSR Clinical Exercise duration: 04:01 min Highest Stage Achieved: Exercise capacity: 1.0 METs Stress ECG Conclusion PT WAS SOA, MALAISE, WITH SOME MILD STOMACH DISCOMFORT. NO CP. NO ARRHYTHMIAS. NO SIGNIFICANT ST CHANGES. UNREMARKABLE LEXISCAN STRESS. MYOVIEW IMAGES REPORTED SEPERATELY. Test Summary REST 04:22 . . 67 . 120/ 70 . . Stage 1 . . . . . . . Cardiolite injected Stage 1 01:00 . . 78 . . . . Stage 2 01:00 . . 87 . 132/ 72 . . Stage 3 01:00 . . 82 . 132/ 73 . . Stage 4 01:00 . . 80 . 130/ 74 . . Stage 4 01:01 . . 80 . 130/ 74 . Stop exercise at 04:01 RECOVERY 01:00 . . 78 . 117/ 73 . . RECOVERY 02:00 . . 77 . 117/ 73 . . RECOVERY 03:00 . . 76 . 119/ 71 . . RECOVERY 03:20 . . 77 . 119/ 71 . . Electronically signed by : Tony Resendiz, 08/05/2020 11:13:51
== END ==
LOC: RAD 06:36
PROVIDERS: PCP Internal Medicine Adolescent Medicine; Visit Provider Nurse Practitioner Family
DX: E78.49 Other hyperlipidemia (principal); I10 Essential (primary) hypertension; I20.9 Angina pectoris, unspecified
CPT/HCPCS: 78452; 93017; A9502; J2785

== ENCOUNTER → 2020-08-05 15:15 | Outpatient (CLI) | payer MEDICARE, SELFPAY ==
[2020-08-05 17:03] LABS: Prostate Specific Ag Screen 0.2 ng/ml (0.0-4.0)
== END ==
PROVIDERS: Visit Provider Urology
DX: Z12.5 Encounter for screening for malignant neoplasm of prostate (principal)
CPT/HCPCS: 36415; G0103

== ENCOUNTER → 2020-08-18 13:18 | Outpatient (CLI) | payer MEDICARE, SELFPAY ==
[2020-08-18 13:50] LABS: Basophils % 0.4 % (0.1-2.0); Eosinophils # 0.4 K/mm3 (0.0-0.4); Eosinophils % 4.3 % (0.1-12.0); Hematocrit 40.9 % (42.0-52.0); Hemoglobin 13.8 g/dL (14.1-18.0); Lymphocytes # 2.7 K/mm3 (0.7-4.5); Lymphocytes % 27.9 % (10-50); Mean Corpuscular HGB Conc 33.7 g/dL (31.8-35.4); Mean Corpuscular Hemoglobin 29.1 pg (27.0-31.2); Mean Corpuscular Volume 86.6 fl (80-94); Monocytes # 0.4 K/mm3 (0.1-1.0); Monocytes % 3.8 % (1.7-9.3); Neutrophils # 6.2 K/mm3 (1.8-7.8); Neutrophils % 63.6 % (37.0-80.0); Platelet Count 114 K/mm3 (142-424); Red Blood Count 4.73 M/mm3 (4.60-6.20); White Blood Count 9.8 K/mm3 (4.8-10.8)
[2020-08-18 14:04] LABS: Anion Gap 14.7 mEq/L (5-15); Blood Urea Nitrogen 21 mg/dl (9-20); Carbon Dioxide 23 mmol/L (22.0-30.0); Chloride 105 mmol/L (98-107); Estimated Glomerular Filt Rate 100 ml/min (>60); GFR (African American) 121 ML/MIN (>60); Glucose 238 mg/dl (74-100); Potassium 4.7 mmoL/L (3.5-5.1); Sodium 138 mmol/L (136-145)
== END ==
PROVIDERS: Visit Provider Nurse Practitioner Family
DX: E78.5 Hyperlipidemia, unspecified (principal); I10 Essential (primary) hypertension; I20.9 Angina pectoris, unspecified; R31.9 Hematuria, unspecified; R94.39 Abnormal result of other cardiovascular function study
CPT/HCPCS: 36415; 80048; 85025; U0003

== ENCOUNTER 2020-08-19 07:26 | Day surgery (SDC) | payer MEDICARE, SELFPAY ==
[2020-08-19] VITALS (12 sets, daily range): BP systolic 104–135; BP diastolic 59–102; PULSE 60–80; RESP 13–18; TEMP 37.2; O2SAT 95–98; BMI 31.3
--- NOTE | 2020-08-19 | IR_ITS ---
APPROVED REPORT Patient Location: Outpatient Bag Hanger: MONICA Corona RT (R) PROCEDURES Left heart catheterization Left ventriculogram Selective coronary angiogram INDICATION Known coronary artery disease, High risk abnormal Myoview, Progressive angina pectoris, Informed consent was obtained prior to the procedure. COMPLICATIONS None Estimated Blood Loss: Less than 10 mls TECHNIQUE One percent lidocaine used to anesthetize the right anterior aspect of the wrist. The right radial artery was accessed via the Seldinger technique. A 6 Bengali sheath was placed in the right radial artery. 2.5 mg of verapamil, 800 mcg of nitroglycerin, 1mg Lidocaine and 5000 U Heparin were given through the arterial sheath. The trap catheter was also used to perform left heart catheterization, left ventriculogram and selective coronary angiogram. At the end of the procedure the sheath was removed good hemostasis was achieved using Traclet band, patient was transferred to the postop holding area in stable condition. ANGIOGRAPHIC RESULTS The left main artery Has an ostial 50% eccentric stenosis The left anterior descending artery Is ostially patent and then has a proximal through mid vessel stent which is widely patent with excellent proximal and distal transitioning with no angiographic evidence of in-stent restenosis. The mid LAD then has eccentric 20% stenoses and then at the proximal portion of the distal segment then has diffuse small vessel 70 to 80% stenoses. The LAD is small less than 1 mm in diameter at this area The circumflex artery Small nondominant and has a proximal 30% stenosis The right coronary artery Is a large dominant vessel and has a proximal concentric 60 to 70% hazy stenosis followed by poststenotic dilatation followed by distal 30% atheromatous plaque. A stent in the posterior lateral ventricular branch is widely patent. Very distally there are tandem 80 and the 90% stenoses in a vessel that is 1 mm in diameter. A large posterior descending artery branch has proximal to mid vessel 90% stenoses The RAMIREZ ventriculogram reveals Preserved at 55% The left ventricular end-diastolic pressure 20 mmHg IMPRESSION 50% ostial left main disease which constitutes a severe stenosis Severe disease in the distal LAD which is too small for percutaneous or surgical revascularization Vestigial nondominant circumflex artery Severe disease in a posterior lateral ventricular branch which explains the abnormal Myoview which is not a candidate for bypass grafting due to its posterior location Preserved ejection fraction Elevated LVEDP Angiographic evidence of diffuse endothelial dysfunction PLAN 1. Patient could be offered bypass surgery however I do not believe this form of revascularization is warranted given his anatomy. The LAD stenosis is mostly in the distal segment therefore a ARRIETA graft would not benefit the patient 2. The posterior lateral ventricular branch is also severely diseased which is not able to be surgically bypassed. This vessel is an excellent candidate for stenting 3. I would like to discuss the options with patient and offer him a surgical consultation if he chooses that route however I believe he would be much better served with stenting of the ostial left main artery as well as stenting of the large posterior lateral ventricular branch 4. LDL less than 55 5. Addition of nitrates and Ranexa Electronically signed by : Syed Bess, 08/19/2020 10:57:20
== END 2020-08-19 12:10 | disposition home or self-care (01) ==
LOC: CATHLAB 07:27
PROVIDERS: PCP Internal Medicine Adolescent Medicine; Visit Provider Internal Medicine
DX: I25.118 Atherosclerotic heart disease of native coronary artery with other forms of angina pectoris (principal); E11.9 Type 2 diabetes mellitus without complications; Z79.4 Long term (current) use of insulin; Z79.899 Other long term (current) drug therapy; I10 Essential (primary) hypertension; E78.5 Hyperlipidemia, unspecified; I25.2 Old myocardial infarction
CPT/HCPCS: 93458; 99152; C1725; C1769; J1644; Q9967

== ENCOUNTER 2020-08-20 11:26 | Day surgery (SDC) | payer MEDICARE, SELFPAY ==
[2020-08-20] VITALS (10 sets, daily range): BP systolic 116–163; BP diastolic 67–86; PULSE 58–71; RESP 18–20; O2SAT 94–98; BMI 30.7
--- NOTE | 2020-08-20 | IR_ITS ---
APPROVED REPORT Patient Location: Outpatient PROCEDURES Drug-eluting stent deployment to the right coronary artery's posterior lateral ventricular branch Drug-eluting stent deployment to the ostial left main artery INDICATION Coronary artery disease, High risk abnormal Myoview, Angina pectoris, Preference of stenting versus coronary bypass surgery Informed consent was obtained prior to the procedure. COMPLICATIONS NONE Estimated Blood Loss: LESS THAN 10 ML TECHNIQUE 1% lidocaine used anesthetize right groin the right femoral artery was accessed via Salinger technique and a 6 Austrian sheath was placed in the right femoral artery. Therapeutic heparin was administered giving a therapeutic ACT. A JR4 guide catheter was placed in the right coronary artery and a choice floppy wire was placed distally in the posterior lateral branch. A 2 mm x 12 mm resolute Áng[place] stent was deployed at 20 kayden reducing the severe to critical stenosis to 0%. SAGE-3 flow was present before and after the procedure. Following this the JL4 guide catheter was placed in the left main artery and the same wire was placed in the LAD. A 4 mm x 12 mm resolute [place] stent was placed in the ostial proximal segment and deployed at 24 kayden reducing the stenosis. SAGE-3 flow was present before and after the procedure. At the end of the procedure the JR4 catheter was placed back in the right coronary artery to perform additional diagnostic angiography. After the angiographic results were deemed excellent the apparatus was removed the groin was reprepped closure changed sheath was removed and hemostasis achieved using Perclose device patient was transferred to the postop putting in stable condition IMPRESSION Successful stenting of a critically diseased dominant right coronary artery/posterior lateral ventricular branch reducing the stenosis to 0% Successful stenting of a severely just ostial left main artery reducing the stenosis to 0% PLAN 1. Continue dual antiplatelet therapy 2. Risk factor modification 3. Cardiac rehabilitation 4. Avoidance of tobacco products 5. LDL less than 55 Electronically signed by : Syed Bess, 08/20/2020 12:36:01
[2020-08-20 11:59] LABS: Basophils % 0.2 % (0.1-2.0); Eosinophils # 0.2 K/mm3 (0.0-0.4); Eosinophils % 1.2 % (0.1-12.0); Hematocrit 38.4 % (42.0-52.0); Lymphocytes # 3.4 K/mm3 (0.7-4.5); Lymphocytes % 23.7 % (10-50); Mean Corpuscular HGB Conc 33.8 g/dL (31.8-35.4); Mean Corpuscular Hemoglobin 29.3 pg (27.0-31.2); Mean Corpuscular Volume 86.6 fl (80-94); Mean Platelet Volume 8.5 fl (7.4-10.4); Monocytes # 0.6 K/mm3 (0.1-1.0); Monocytes % 4.4 % (1.7-9.3); Neutrophils % 70.4 % (37.0-80.0); Platelet Count 136 K/mm3 (142-424); Red Blood Count 4.43 M/mm3 (4.60-6.20); White Blood Count 14.2 K/mm3 (4.8-10.8)
[2020-08-20 12:02] LABS: Chloride 99 mmol/L (98-107); Potassium 4.8 mmoL/L (3.5-5.1); Sodium 135 mmol/L (136-145)
[2020-08-20 12:05] LABS: Anion Gap 17.8 mEq/L (5-15); Blood Urea Nitrogen 26 mg/dl (9-20); Calcium 9.5 mg/dl (8.4-10.2); Carbon Dioxide 23 mmol/L (22.0-30.0); Creatinine Clearance Estimated 100 mL/min (50-200); Estimated Glomerular Filt Rate 69 ml/min (>60); GFR (African American) 84 ML/MIN (>60)
[2020-08-20 12:13] LABS: Glucose 432 mg/dl (74-100)
[2020-08-20 12:57] LABS: CATHL Activated Clotting Time 288 SEC (74-125)
[2020-08-20 13:50] LABS: POC Glucose,Bedside 337 (70-110)
--- NOTE | 2020-08-20 14:21 | HMH.PHACLD ---
Mirza Small has received discharge medication counseling on the following medications: PATIENT IS CURRENTLY TAKING ASPIRIN EC 81 MG DAILY, BRILINTA 90 MG BID, CRESTOR 40 MG HS, LISINOPRIL 5 MG DAILY, AND METOPROLOL SUCCINATE 50 MG DAILY.
== END 2020-08-20 15:26 | disposition home or self-care (01) ==
LOC: CATHLAB 11:27
PROVIDERS: PCP Internal Medicine Adolescent Medicine; Visit Provider Internal Medicine
DX: I25.118 Atherosclerotic heart disease of native coronary artery with other forms of angina pectoris (principal); E11.9 Type 2 diabetes mellitus without complications; Z79.4 Long term (current) use of insulin; Z79.899 Other long term (current) drug therapy; I10 Essential (primary) hypertension; E78.5 Hyperlipidemia, unspecified; Z95.5 Presence of coronary angioplasty implant and graft
CPT/HCPCS: 80048; 82962; 85025; 85347; 92928; 99152; C1725; C1760; C1769; C1876; C1894; C9600; J1644; Q9967

== ENCOUNTER → 2020-09-04 09:09 | Outpatient (CLI) | payer MEDICARE, SELFPAY | PROVIDERS: Visit Provider Urology | DX: R31.0 Gross hematuria (principal); Z01.812 Encounter for preprocedural laboratory examination; Z11.52 Encounter for screening for COVID-19 | CPT/HCPCS: U0003 ==

== ENCOUNTER 2020-09-06 10:32 | Day surgery (SDC) | payer MEDICARE, SELFPAY ==
[2020-08-17 13:37] VITALS: BMI 32.2
[2020-09-06 10:46] VITALS: BP 133/81; PULSE 73; RESP 18; TEMP 36.4; O2SAT 98
[2020-09-06 10:59] LABS: POC Glucose,Bedside 415 (70-110)
[2020-09-06 12:30] VITALS: BP 127/68; PULSE 74; RESP 18; TEMP 36.7; O2SAT 96
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
== END 2020-09-06 12:34 | disposition home or self-care (01) ==
LOC: OUTP 10:33
PROVIDERS: PCP Internal Medicine Adolescent Medicine; Visit Provider Urology
DX: I10 Essential (primary) hypertension (principal); I25.10 Atherosclerotic heart disease of native coronary artery without angina pectoris; E11.9 Type 2 diabetes mellitus without complications; E78.5 Hyperlipidemia, unspecified; I25.2 Old myocardial infarction; R31.0 Gross hematuria; R35.0 Frequency of micturition
CPT/HCPCS: 52000; 82962

== ENCOUNTER → 2020-09-20 08:21 | Outpatient (CLI) | payer MEDICARE, SELFPAY ==
[2020-09-20 08:52] LABS: Basophils % 0.3 % (0.1-2.0); Eosinophils # 0.3 K/mm3 (0.0-0.4); Eosinophils % 3.6 % (0.1-12.0); Hematocrit 39.5 % (42.0-52.0); Hemoglobin 12.6 g/dL (14.1-18.0); Lymphocytes # 2.4 K/mm3 (0.7-4.5); Lymphocytes % 28.2 % (10-50); Mean Corpuscular Hemoglobin 28.5 pg (27.0-31.2); Mean Corpuscular Volume 89.2 fl (80-94); Mean Platelet Volume 7.8 fl (7.4-10.4); Monocytes # 0.5 K/mm3 (0.1-1.0); Monocytes % 5.2 % (1.7-9.3); Neutrophils # 5.4 K/mm3 (1.8-7.8); Neutrophils % 62.6 % (37.0-80.0); Platelet Count 155 K/mm3 (142-424); Red Blood Count 4.43 M/mm3 (4.60-6.20); Red Cell Distribution Width 14.4 % (11.5-17.5); White Blood Count 8.6 K/mm3 (4.8-10.8)
[2020-09-20 09:47] LABS: Alanine Aminotransferase 43 U/L (12-78); Albumin Level 4.1 g/dl (3.5-5.0); Alkaline Phosphatase 129 U/L (38-126); Anion Gap 16.5 mEq/L (5-15); Aspartate Amino Transferase 41 U/L (17-59); Bilirubin,Direct 0.4 mg/dl (0.0-0.4); Bilirubin,Total 0.4 mg/dl (0.2-1.3); Blood Urea Nitrogen 25 mg/dl (9-20); Calcium 9.1 mg/dl (8.4-10.2); Carbon Dioxide 20 mmol/L (22.0-30.0); Chloride 104 mmol/L (98-107); Chol/HDL Ratio 6.4 (1-3.5); Cholesterol 179 mg/dl (140-200); Estimated Glomerular Filt Rate 100 ml/min (>60); GFR (African American) 121 ML/MIN (>60); Glucose 317 mg/dl (74-100); HDL Cholesterol 28 mg/dl (40-60); Potassium 4.5 mmoL/L (3.5-5.1); Sodium 136 mmol/L (136-145); Total Protein,Serum 6.7 g/dl (6.3-8.2); Triglycerides 390 mg/dl (30-150); VLDL Cholesterol 78 mg/dL (0-40)
[2020-09-20 10:03] LABS: Direct LDL Cholesterol 93.64 mg/dL (100-129)
== END ==
PROVIDERS: Physician Assistant; Visit Provider Urology
DX: E11.69 Type 2 diabetes mellitus with other specified complication (principal); E78.49 Other hyperlipidemia; I10 Essential (primary) hypertension; I21.3 ST elevation (STEMI) myocardial infarction of unspecified site; I25.10 Atherosclerotic heart disease of native coronary artery without angina pectoris; R94.31 Abnormal electrocardiogram [ECG] [EKG]; Z79.4 Long term (current) use of insulin
CPT/HCPCS: 36415; 80048; 80061; 80076; 85025

== ENCOUNTER → 2020-09-21 11:20 | Outpatient (CLI) | payer MEDICARE, SELFPAY | PROVIDERS: Visit Provider Internal Medicine | DX: Z01.812 Encounter for preprocedural laboratory examination (principal); Z11.52 Encounter for screening for COVID-19; I25.10 Atherosclerotic heart disease of native coronary artery without angina pectoris | CPT/HCPCS: U0003 ==

== ENCOUNTER → 2020-11-15 07:33 | Outpatient (CLI) | payer MEDICARE, SELFPAY ==
[2020-11-15 08:01] LABS: Basophils # 0.1 K/mm3 (0-0.2); Basophils % 0.7 % (0.1-2.0); Eosinophils # 0.3 K/mm3 (0.0-0.4); Eosinophils % 3.5 % (0.1-12.0); Hematocrit 45.3 % (42.0-52.0); Hemoglobin 14.4 g/dL (14.1-18.0); Lymphocytes # 2.3 K/mm3 (0.7-4.5); Lymphocytes % 29.8 % (10-50); Mean Corpuscular HGB Conc 31.8 g/dL (31.8-35.4); Mean Corpuscular Hemoglobin 29.6 pg (27.0-31.2); Mean Corpuscular Volume 93.1 fl (80-94); Mean Platelet Volume 9.8 fl (7.4-10.4); Monocytes # 0.3 K/mm3 (0.1-1.0); Monocytes % 4.3 % (1.7-9.3); Neutrophils # 4.7 K/mm3 (1.8-7.8); Neutrophils % 61.6 % (37.0-80.0); Platelet Count 86 K/mm3 (142-424); Red Blood Count 4.86 M/mm3 (4.60-6.20); Red Cell Distribution Width 13.1 % (11.5-17.5); White Blood Count 7.7 K/mm3 (4.8-10.8)
[2020-11-15 08:36] LABS: Chloride 100 mmol/L (98-107); Potassium 5.4 mmoL/L (3.5-5.1); Sodium 135 mmol/L (136-145)
[2020-11-15 08:38] LABS: Blood Urea Nitrogen 23 mg/dl (9-20); Estimated Glomerular Filt Rate 87 ml/min (>60); GFR (African American) 105 ML/MIN (>60)
[2020-11-15 08:39] LABS: Anion Gap 16.4 mEq/L (5-15); Calcium 9.2 mg/dl (8.4-10.2); Carbon Dioxide 24 mmol/L (22.0-30.0)
[2020-11-15 08:45] LABS: Glucose 418 mg/dl (74-100)
== END ==
PROVIDERS: Visit Provider Nurse Practitioner Family
DX: E11.9 Type 2 diabetes mellitus without complications (principal); E78.5 Hyperlipidemia, unspecified; I10 Essential (primary) hypertension; I20.0 Unstable angina; I21.3 ST elevation (STEMI) myocardial infarction of unspecified site; R06.00 Dyspnea, unspecified; R94.31 Abnormal electrocardiogram [ECG] [EKG]; Z01.812 Encounter for preprocedural laboratory examination; Z20.822 Contact with and (suspected) exposure to COVID-19
CPT/HCPCS: 36415; 80048; 85025; U0003

== ENCOUNTER 2020-11-16 07:20 | Day surgery (SDC) | payer MEDICARE, SELFPAY ==
[2020-11-16] VITALS (19 sets, daily range): BP systolic 99–145; BP diastolic 47–89; PULSE 57–75; RESP 13–20; TEMP 36.7–37; O2SAT 94–98; BMI 30.4
--- NOTE | 2020-11-16 07:17 | ECG_ITS ---
APPROVED REPORT Exam: Resting ECG HR:72 bpm ECG Measurements Heart Rate 72 AXES AK 168 P 32 QRSd 80 QRS 21 QT 380 T 30 QTc 416 Conclusion Normal sinus rhythm Normal ECG Electronically signed by : Damon Valenzuela MD 11/17/2020 17:44:53
--- NOTE | 2020-11-16 07:28 | XR_ITS ---
PROCEDURE: XR CHEST PORTABLE CLINICAL HISTORY: chest pain COMPARISON: CR XR CHEST PORTABLE from 03/24/2020 CR XR CHEST PORTABLE from 04/15/2020 CR XR CHEST 2V from 07/02/[address] THORACIC SPINE WO CON from 07/12/2020 FINDINGS: The cardiomediastinal silhouette and pulmonary vascularity are within normal limits. Mild bibasilar atelectasis. Triangular-shaped density right infrahilar region suggesting atelectasis or infiltrate in the right middle lobe. 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 IMPRESSION: Bibasilar atelectasis with atelectasis or infiltrate in the right middle lobe Dictated by: Eligio Simental MD 11/16/2020 08:08 Eligio Simental MD in [place] 11/16/2020 08:08
--- NOTE | 2020-11-16 07:43 | PC.NURSE ---
rad at for portable cxra
[2020-11-16 07:53] LABS: Chloride 101 mmol/L (98-107); Potassium 4.5 mmoL/L (3.5-5.1); Sodium 136 mmol/L (136-145)
[2020-11-16 07:54] LABS: Basophils # 0.1 K/mm3 (0-0.2); Basophils % 0.6 % (0.1-2.0); Eosinophils # 0.3 K/mm3 (0.0-0.4); Eosinophils % 3.5 % (0.1-12.0); Hemoglobin 13.7 g/dL (14.1-18.0); Lymphocytes # 2.5 K/mm3 (0.7-4.5); Lymphocytes % 27.7 % (10-50); Mean Corpuscular HGB Conc 32.6 g/dL (31.8-35.4); Mean Corpuscular Hemoglobin 29.8 pg (27.0-31.2); Mean Corpuscular Volume 91.4 fl (80-94); Monocytes # 0.3 K/mm3 (0.1-1.0); Monocytes % 3.6 % (1.7-9.3); Neutrophils # 5.9 K/mm3 (1.8-7.8); Neutrophils % 64.6 % (37.0-80.0); Platelet Count 116 K/mm3 (142-424); Red Blood Count 4.59 M/mm3 (4.60-6.20); Red Cell Distribution Width 13.5 % (11.5-17.5); White Blood Count 9.1 K/mm3 (4.8-10.8)
[2020-11-16 07:56] LABS: Alanine Aminotransferase 27 U/L (12-78); Albumin Level 4.1 g/dl (3.5-5.0); Albumin/Globulin Ratio 1.3 (1.1-1.8); Alkaline Phosphatase 95 U/L (38-126); Anion Gap 16.5 mEq/L (5-15); Aspartate Amino Transferase 30 U/L (17-59); Bilirubin,Total 0.3 mg/dl (0.2-1.3); Blood Urea Nitrogen 30 mg/dl (9-20); Calcium 9.4 mg/dl (8.4-10.2); Carbon Dioxide 23 mmol/L (22.0-30.0); Creatinine Clearance Estimated 108 mL/min (50-200); Estimated Glomerular Filt Rate 77 ml/min (>60); GFR (African American) 93 ML/MIN (>60); Globulin 3.1 g/dL (1.3-3.2); Glucose 326 mg/dl (74-100); Magnesium 1.5 mg/dl (1.6-2.3); Phosphorous 2.8 mg/dl (2.5-4.5); Total Protein,Serum 7.2 g/dl (6.3-8.2)
--- NOTE | 2020-11-16 08:02 | HMH.EDGENADL ---
ED Disposition Clinical Impression: Angina at rest Disposition: Admitted As Inpatient Condition on Discharge: Fair Referrals: Damon Valenzuela MD [Primary Care Provider] - - Critical Care Critical Care Time: No Attestation: On 11/16/20, the high probability of a clinically significant, sudden or life threatening deterioration of the following system(s) required my full and direct attention, intervention and personal management. The time I documented below is in addition to time spent performing reported procedures but includes the following listed in this critical care notation. Medical Decision Making - Medical Records Medical records reviewed: Yes: I reviewed the patient's medical records. MR Comment: Reviewed results of most recent heart cath, see below. Reviewed laboratory results from yesterday, glucose 418 and potassium 5.4. - Andre Inquiry Pt receiving controlled substance: Yes Andre was queried for this patient: Yes Risks and benefits of using a controlled substance: were not discussed with pt by me Vital Signs: 11/16/20 07:20 11/16/20 07:45 11/16/20 07:53 Temperature 98.6 F Temperature Source Oral Pulse Rate 74 71 Pulse Rate [Left] 70 Respiratory Rate 13 19 18 Blood Pressure 112/70 112/70 Blood Pressure [Right Arm] 122/70 Blood Pressure Mean [Right Arm] 87 Blood Pressure Source Blood Pressure Source [Right Arm] Automatic Cuff Blood Pressure Position 02 Sat by Pulse Oximetry 98 97 95 11/16/20 08:00 11/16/20 08:26 11/16/20 09:00 Temperature Temperature Source Pulse Rate 72 70 69 Pulse Rate [Left] Respiratory Rate 17 17 18 Blood Pressure 104/71 L 118/70 104/75 L Blood Pressure [Right Arm] Blood Pressure Mean [Right Arm] Blood Pressure Source Blood Pressure Source [Right Arm] Blood Pressure Position 02 Sat by Pulse Oximetry 95 96 94 L 11/16/20 09:57 11/16/20 10:45 11/16/20 15:12 Temperature 98.1 F Temperature Source Oral Pulse Rate 74 69 75 Pulse Rate [Left] Respiratory Rate 17 17 20 Blood Pressure 110/70 110/70 99/47 L Blood Pressure [Right Arm] Blood Pressure Mean [Right Arm] Blood Pressure Source Automatic Cuff Blood Pressure Source [Right Arm] Blood Pressure Position Sitting 02 Sat by Pulse Oximetry 96 97 11/16/20 15:40 11/16/20 15:45 11/16/20 15:50 Temperature Temperature Source Pulse Rate Pulse Rate [Left] 68 68 69 Respiratory Rate 18 13 13 Blood Pressure Blood Pressure [Right Arm] 134/83 144/81 H 129/80 Blood Pressure Mean [Right Arm] 100 102 96 Blood Pressure Source Blood Pressure Source [Right Arm] Blood Pressure Position 02 Sat by Pulse Oximetry 95 95 98 11/16/20 15:55 11/16/20 16:10 11/16/20 16:13 Temperature Temperature Source Pulse Rate 64 Pulse Rate [Left] 69 59 L Respiratory Rate 13 14 Blood Pressure Blood Pressure [Right Arm] 131/84 120/71 Blood Pressure Mean [Right Arm] 99 87 Blood Pressure Source Blood Pressure Source [Right Arm] Blood Pressure Position 02 Sat by Pulse Oximetry 95 95 11/16/20 16:25 11/16/20 16:40 11/16/20 16:55 Temperature Temperature Source Pulse Rate Pulse Rate [Left] 68 57 L 70 Respiratory Rate 14 18 13 Blood Pressure Blood Pressure [Right Arm] 118/76 138/80 145/89 H Blood Pressure Mean [Right Arm] 90 99 107 Blood Pressure Source Blood Pressure Source [Right Arm] Blood Pressure Position 02 Sat by Pulse Oximetry 95 95 98 11/16/20 17:10 Temperature Temperature Source Pulse Rate Pulse Rate [Left] 70 Respiratory Rate 13 Blood Pressure Blood Pressure [Right Arm] 132/79 Blood Pressure Mean [Right Arm] 96 Blood Pressure Source Blood Pressure Source [Right Arm] Blood Pressure Position 02 Sat by Pulse Oximetry 95 - Lab Data Lab Results 11/16/20 07:20: WBC 9.1, RBC 4.59 L, Hgb 13.7 L, Hct 42.0, MCV 91.4, MCH 29.8, MCHC 32.6, RDW 13.5, Plt Count 116 L D, MPV 9.0, Neut
[2020-11-16 08:08] LABS: Troponin I < 0.01 ng/ml (0.00-0.034)
--- NOTE | 2020-11-16 08:11 | PC.NURSE ---
Dr Tirado speaking with pt. Dr Tirado has consulted with Dr Bess.
--- NOTE | 2020-11-16 08:49 | PC.NURSE ---
Joesph Gonzalez to come to ED
--- NOTE | 2020-11-16 09:07 | PC.NURSE ---
Carin Wheeler, flat cutter to come see pt.
--- NOTE | 2020-11-16 10:00 | PC.NURSE ---
Cardiology at bedside
--- NOTE | 2020-11-16 10:10 | IR_ITS ---
APPROVED REPORT Patient Location: Emergent PROCEDURES Left heart catheterization Left ventriculogram Selective coronary angiogram Drug-eluting stent deployment to the proximal dominant right coronary Informed consent was obtained prior to the procedure. COMPLICATIONS None Estimated Blood Loss: Less than 10 mls TECHNIQUE One percent lidocaine used to anesthetize the right anterior aspect of the wrist. The right radial artery was accessed via the Seldinger technique. A 6 Frisian sheath was placed in the right radial artery. 2.5 mg of verapamil, 800 mcg of nitroglycerin, 1mg Lidocaine and 5000 U Heparin were given through the arterial sheath. The trap catheter was also used to perform left heart catheterization, left ventriculogram and selective coronary angiogram. At the end of the procedure therapeutic heparin was administered and a [place] guide catheter was used to intubate the right coronary artery. A BMW wire was placed distally and a 5 mm x 22 mm resolute [place] stent was deployed at 20 kayden reducing the severe stenosis to 0%. 800 mcg of nitroglycerin was administered after the procedure. SAGE-3 flow was present before and after the procedure ANGIOGRAPHIC RESULTS The left main artery Has a stent in the proximal segment which extends into the proximal ID. The left main stent is widely patent free of in-stent restenosis with excellent transitioning. The left anterior descending artery The stent originating off the left main artery is widely patent. There is a smooth 10 to 20% proximal stenosis. Distal to the stent the LAD has a mid vessel to distal 80 to 90% stenoses and areas that are less than 1.5 mm in diameter there are 3 diagonal arteries which originate from the LAD. All are small in caliber. The second diagonal artery has an ostial 80% stenosis and is 1.5 mm in diameter The circumflex artery Is a vestigial vessel but patent. There appears to be a stent in the proximal circumflex artery which is widely patent The right coronary artery Is a large dominant vessel with proximal ruptured plaque with contrast staining creating a 50 to 60% stenosis. Distally the vessel has 20% stenoses. This is a large vessel with a widely patent stent in the posterior lateral branch which is large with excellent distal flow. The posterior descending artery is also a large branch and has diffuse 30% stenosis The RAMIREZ ventriculogram reveals Normal 65% The left ventricular end-diastolic pressure 10 mmHg IMPRESSION Patent stent in the left main artery extending into the LAD Severe disease in the distal LAD which is too small for percutaneous intervention or bypass surgery Ruptured plaque with contrast staining in the proximal segment which is almost certainly the etiology for patient's unstable angina Successful stenting of the proximal dominant right coronary artery ruptured plaque reduced to 0% with 1 drug-eluting stent Normal ejection fraction Normal left ventricular diastolic pressure PLAN 1. Dual antiplatelet therapy 2. Maximize antianginal medication 3. Risk factor modification 4. Cardiac rehabilitation 5. LDL less than 55 Electronically signed by : Syed Bess MD 11/16/2020 17:15:59
--- NOTE | 2020-11-16 10:58 | PC.NURSE ---
[place] in optical laboratory mechanic called requesting that pot being consented for heart cath
--- NOTE | 2020-11-16 11:08 | PC.NURSE ---
label operator consent signed by patient
--- NOTE | 2020-11-16 11:26 | PC.NURSE ---
message left for dr coronado to call back
[2020-11-16 11:48] LABS: Troponin I < 0.01 ng/ml (0.00-0.034)
--- NOTE | 2020-11-16 12:07 | HMH.CNCARD ---
History of Present Illness Consult date: 11/16/20 Requesting physician: Trenton Tirado Consult reason: chest pain Chief complaint: chest pain History of present illness: This is a 55-year-old white gentleman who presented to the emergency department with complaints of chest pain, shortness of breath and numbness in both arms. The patient states that he has been having chest pain intermittently since last but this significantly worsened this morning. He states that he got up at 4 AM and went out to pedal around in his shop and he was reaching up above his head to put up some tools when he had sudden onset of nausea with no vomiting. He states that he then started to have a sharp stabbing sensation in the left side of his chest. He states that he had a severe headache when this occurred. He states that both of his arms went numb and he was dizzy and lightheaded. The patient states that he was significantly short of breath and just did not feel well. The patient states that he had a severe headache as well. He has been taking nitroglycerin more at home in the last few weeks and he has in the last several years because of worsening chest pain. The patient did not take nitroglycerin at home today because it has been making the headache worse. The patient does have extensive coronary artery disease with his last stenting in August of this year. He is scheduled to undergo outpatient cardiac catheterization tomorrow but because of his worsening symptoms he came on into the emergency department. He denies any edema, fever, chills, vomiting, diarrhea, PND or orthopnea. The patient is diabetic and reports that his blood sugars have been high recently. [facility] History I have reviewed the patient's past medical history: Yes Medical History: Reports:: Arrhythmia, Coronary Artery Disease, Diabetes Mellitus Type 2, Hyperlipidemia, Hypertension, Myocardial Infarction Denies:: Cancer, Diabetes Mellitus Type 1, Internal Pacemaker, MRSA, Seizures *Have you ever received a pneumonia vaccine?: No *Have you received a flu vaccine this season?: Yes Other Medical History: Reports: Arthritis Other Surgeries: Yes: No Previous Surgery, Cardiac Catheterization, Colonoscopy, Coronary Stent. No: Pacemaker Amputation: No Fractures: No - *Social History Smoking Status: Former smoker Tobacco Type: cigarettes Alcohol Intake: never Substance Use Type: denies use *Occupational Status:: employed, disabled Housing: house Household Members: spouse *Travel in the last 8 weeks: None Family Hx:: Coronary Artery Disease, Diabetes Meds Home Medications Medication Instructions Recorded Confirmed Type Aspirin [Aspirin 81mg EC Tab] 81 mg PO DAILY 04/15/20 11/09/20 History Insulin Glargine,Hum.rec.anlog 100 units SQ DAILY 04/15/20 11/09/20 History [Jen Hugo] Metoprolol Succinate [Metoprolol 50 mg PO DAILY 04/15/20 11/09/20 History Succinate 50mg Tablet*] Pantoprazole Sodium [Protonix 40mg 40 mg PO BID 04/15/20 11/09/20 History tablet] Rosuvastatin Calcium [Crestor 40mg 40 mg PO HS 04/15/20 11/09/20 History Tablets] Sertraline HCl [Zoloft] 100 mg PO DAILY 04/15/20 11/09/20 History diazePAM [diazePAM 5mg Tablet] 5 mg PO BIDP PRN 04/15/20 11/09/20 History lisinopriL [Lisinopril 5mg 5 mg PO DAILY 04/15/20 11/09/20 History Tablet] Ticagrelor [Brilinta 90mg 90 mg PO BID 07/02/20 11/09/20 History Tablet] terbinafine HCl 250 mg tablet 250 mg PO DAILY tab 07/27/20 11/09/20 History Isosorbide Mononitrate [Isosorbide 30 mg PO DAILY 08/17/20 11/09/20 History Mononitrate ER] Furosemide [Furosemide 20mg Tab*] 20 mg PO DAILY 09/06/20 11/09/20 History Spironolactone [Spironolactone 25 mg PO DAILY 09/06/20 11/09/20 History 25mg Tablet] phenazopyridine 200 mg tablet 200 mg PO TID PRN 0 Days #15 tab 09/09/20 11/09/20 Rx nitroglycerin 0.4 mg sublingual 0.4 mg SUBLINGUAL Q5M PRN #30 tab 09/17/20 11/09/20 Rx tablet ranolazine 500 mg
--- NOTE | 2020-11-16 12:08 | PC.NURSE ---
LUIS SOLANO speaking with Dr. Dillard
[2020-11-16 14:13] LABS: Troponin I < 0.01 ng/ml (0.00-0.034)
--- NOTE | 2020-11-16 17:38 | SUR.PHASEII ---
While entering the room and assessing the patient it was time to remove air from the radial band I noticed all the air had already been removed. The patient stated he took the syringe and removed all the air himself. No hematoma or bleeding noted. Dr amos notified.
[2020-11-16 20:15] LABS: POC Glucose,Bedside 305 (70-110)
== END 2020-11-16 10:58 ==
LOC: ER 09:22 → CATHLAB 11-17 08:35
PROVIDERS: Emergency Medicine; Emergency Provider Emergency Medicine; PCP Internal Medicine Adolescent Medicine; Visit Provider Internal Medicine
DX: I25.83 Coronary atherosclerosis due to lipid rich plaque (principal); E11.9 Type 2 diabetes mellitus without complications; I10 Essential (primary) hypertension; I25.110 Atherosclerotic heart disease of native coronary artery with unstable angina pectoris; E78.5 Hyperlipidemia, unspecified; R06.00 Dyspnea, unspecified; R94.31 Abnormal electrocardiogram [ECG] [EKG]; Z79.4 Long term (current) use of insulin; Z95.5 Presence of coronary angioplasty implant and graft; Z82.49 Family history of ischemic heart disease and other diseases of the circulatory system; Z79.01 Long term (current) use of anticoagulants; I25.2 Old myocardial infarction; Z79.899 Other long term (current) drug therapy; I20.9 Angina pectoris, unspecified; R07.9 Chest pain, unspecified
CPT/HCPCS: 36415; 71045; 80053; 82962; 83735; 84100; 84484; 85025; 92928; 93005; 93458; 96374; 96375; 96376; 99152; 99153; 99282; C1725; C1769; C1876; C9600; J1644; J2405; Q9967

== ENCOUNTER → 2021-03-08 09:00 | Outpatient (CLI) | payer MEDICARE, SELFPAY ==
[2021-03-08 09:51] LABS: Basophils % 0.2 % (0.1-2.0); Eosinophils # 0.3 K/mm3 (0.0-0.4); Eosinophils % 2.9 % (0.1-12.0); Hematocrit 40.9 % (42.0-52.0); Hemoglobin 13.6 g/dL (14.1-18.0); Lymphocytes # 2.2 K/mm3 (0.7-4.5); Lymphocytes % 25.8 % (10-50); Mean Corpuscular HGB Conc 33.2 g/dL (31.8-35.4); Mean Corpuscular Volume 90.5 fl (80-94); Mean Platelet Volume 8.4 fl (7.4-10.4); Monocytes # 0.4 K/mm3 (0.1-1.0); Monocytes % 4.2 % (1.7-9.3); Neutrophils # 5.7 K/mm3 (1.8-7.8); Neutrophils % 66.8 % (37.0-80.0); Platelet Count 106 K/mm3 (142-424); Red Blood Count 4.52 M/mm3 (4.60-6.20); Red Cell Distribution Width 13.4 % (11.5-17.5); White Blood Count 8.6 K/mm3 (4.8-10.8)
[2021-03-08 10:05] LABS: Hemoglobin A1C 10.8 % (4.0-6.0)
[2021-03-08 10:38] LABS: Alanine Aminotransferase 27 U/L (12-78); Albumin Level 4.1 g/dl (3.5-5.0); Alkaline Phosphatase 88 U/L (38-126); Anion Gap 13.2 mEq/L (5-15); Aspartate Amino Transferase 33 U/L (17-59); Bilirubin,Direct 0.1 mg/dl (0.0-0.4); Bilirubin,Indirect 0.1 mg/dL (0.0-0.9); Bilirubin,Total 0.2 mg/dl (0.2-1.3); Bilirubin,Unconjugated 0.1 mg/dL (0.0-1.1); Blood Urea Nitrogen 17 mg/dl (9-20); Calcium 9.4 mg/dl (8.4-10.2); Carbon Dioxide 28 mmol/L (22.0-30.0); Chloride 100 mmol/L (98-107); Chol/HDL Ratio 4.1 (1-3.5); Cholesterol 149 mg/dl (140-200); Estimated Glomerular Filt Rate 100 ml/min (>60); GFR (African American) 121 ML/MIN (>60); Glucose 293 mg/dl (74-100); HDL Cholesterol 36 mg/dl (40-60); Potassium 5.2 mmoL/L (3.5-5.1); Sodium 136 mmol/L (136-145); Total Protein,Serum 6.6 g/dl (6.3-8.2); Triglycerides 133 mg/dl (30-150); VLDL Cholesterol 27 mg/dL (0-40)
[2021-03-08 10:49] LABS: Direct LDL Cholesterol 98.85 mg/dL (100-129)
[2021-03-08 10:53] LABS: Troponin I < 0.01 ng/ml (0.00-0.034)
[2021-03-08 10:55] LABS: Free T4 (Free Thyroxine) 0.92 ng/dl (0.78-2.19)
[2021-03-08 11:08] LABS: Thyroid Stimulating Hormone 2.46 uIU/mL (0.465-4.68)
== END ==
PROVIDERS: Visit Provider Physician Assistant
DX: E78.5 Hyperlipidemia, unspecified (principal); I10 Essential (primary) hypertension; I21.3 ST elevation (STEMI) myocardial infarction of unspecified site; R06.00 Dyspnea, unspecified; R94.31 Abnormal electrocardiogram [ECG] [EKG]; I20.8 Other forms of angina pectoris; Z79.899 Other long term (current) drug therapy
CPT/HCPCS: 36415; 80048; 80061; 80076; 83036; 84439; 84443; 84484; 85025

== ENCOUNTER → 2021-04-18 15:55 | Outpatient (CLI) | payer MEDICARE, SELFPAY | PROVIDERS: Visit Provider Nurse Practitioner | DX: U07.1 COVID-19 (principal) | CPT/HCPCS: C9803; U0003; U0005 ==

== ENCOUNTER 2021-04-26 14:12 | Inpatient (IN) | payer MEDICARE, SELFPAY ==
[2021-04-26] VITALS (22 sets, daily range): BP systolic 96–159; BP diastolic 60–99; PULSE 61–104; RESP 11–20; TEMP -17.7–37.1; O2SAT 92–97; BMI 26.6; BMI 28.1; BMI 29.0
--- NOTE | 2021-04-26 | IR_ITS ---
APPROVED REPORT Patient Location: [facility] Coordinator: MONICA Guevara RT (R) PROCEDURES Selective coronary angiogram Drug-eluting stent deployment to the large dominant right coronary INDICATION Acute inferior lateral ST elevation myocardial infarction, Coronary artery disease, Medical noncompliance Informed consent was obtained prior to the procedure. COMPLICATIONS None Estimated Blood Loss: Less than 10 mls TECHNIQUE One percent lidocaine used to anesthetize the right anterior aspect of the wrist. The right radial artery was accessed via the Seldinger technique. A 6 Slovak sheath was placed in the right radial artery. 2.5 mg of verapamil, 800 mcg of nitroglycerin, 1mg Lidocaine and 5000 U Heparin were given through the arterial sheath. A eucl3D catheter guide liner were initially used for angiography. Eventually a multipurpose catheter was placed in the right coronary and a Choice PT floppy wire was placed distally. A 5 mm x 18 mm resolute Ángel stent was deployed at 20 kayden in the mid right coronary reducing the large thrombosis to 0%. SAGE-3 flow was present before and after the procedure. Despite SAGE-[address] elevation was present. Following this a 6 Slovak JL 3 guide catheter was used to perform left coronary angiography. At the end the procedure the apparatus was removed the sheath was removed and hemostasis was achieved using TR banding patient was transferred to the postop holding area in guarded condition ANGIOGRAPHIC RESULTS The left main artery Has a stent in the ostial proximal segment which is widely patent free of in-stent restenosis with excellent proximal distal transitioning The left anterior descending artery Is a small vessel with proximal 30% stenoses in a mid vessel long concentric 70 to 80% stenosis at a 2 mm segment. The LAD does not touch the apex. There is a stent in the mid segment of the LAD which is widely patent free of in-stent restenosis with excellent proximal distal transitioning The circumflex artery Is a vestigial vessel and patent. There is a small terminal obtuse marginal artery which is subtotally occluded The right coronary artery Is a large massive dominant vessel which has a large thrombus in the midsegment. Distally there are diffuse 30% stenoses throughout the extremity large posterior descending artery and posterior lateral branch The RAMIREZ ventriculogram reveals not performed The left ventricular end-diastolic pressure not measured IMPRESSION Large inferolateral myocardial infarction with persistent ST elevation despite SAGE-3 flow and complete revascularization with 1 drug-eluting stent Persistent severe stenosis in the mid small LAD PLAN 1. Dual antiplatelet therapy 2. Supportive care with continuous telemetry monitoring 3. Patient has persistent ST elevation and is experiencing ongoing chest pain. This will likely persist over the next 24 to 48 hours at a minimum and he will likely require copious IV pain medicine 4. Avoidance of tobacco products 5. Cardiac rehabilitation 6. Echocardiogram Electronically signed by : Syed Bess MD 04/26/2021 15:00:16
--- NOTE | 2021-04-26 14:10 | ECG_ITS ---
APPROVED REPORT Exam: Resting ECG HR:86 bpm ECG Measurements Heart Rate 86 AXES [place] 156 P 52 QRSd 85 QRS 35 QT 337 T 24 QTc 380 Conclusion SINUS RHYTHM POSSIBLE LEFT ATRIAL ENLARGEMENT [-0.1mV P-WAVE IN V1/V2] INFERIOR MYOCARDIAL INFARCTION , POSSIBLY ACUTE [40+ ms Q WAVE AND/OR ST/T ABNORMALITY IN II/aVF] MARKED ST ELEVATION, CONSIDER ANTERIOR INJURY [MARKED ST ELEVATION W/O NORMALLY INFLECTED T-WAVE IN V2-V5] ACUTE NV UNCONFIRMED REPORT Electronically signed by : Damon Valenzuela MD 04/26/2021 17:43:10
--- NOTE | 2021-04-26 14:18 | HMH.EDGENADL ---
ED Disposition Clinical Impression: ST elevation CT (STEMI) Qualifiers: Involved coronary artery: unspecified coronary artery Qualified Code(s): I21.3 - ST elevation (STEMI) myocardial infarction of unspecified site Disposition: Admitted As Inpatient Condition on Discharge: Serious - Critical Care Critical Care Time: No Attestation: On , the high probability of a clinically significant, sudden or life threatening deterioration of the following system(s) required my full and direct attention, intervention and personal management. The time I documented below is in addition to time spent performing reported procedures but includes the following listed in this critical care notation. Medical Decision Making - Andre Inquiry Pt receiving controlled substance: Yes Andre was queried for this patient: No Reason not queried -: Emergent pt cond-no time Risks and benefits of using a controlled substance: were not discussed with pt by me Orders (Tests/Meds): ED MEDICATIONS Generic Name Dose Route Start Last Admin Trade Name Freq PRN Reason Stop Dose Admin Fentanyl Citrate 25 mcg 04/26/21 14:17 Fentanyl 100mcg/2ml Vial IV 04/27/21 14:17 Q3MINP PRN Moderate to Severe Pain Fentanyl Citrate 50 mcg 04/26/21 14:17 Fentanyl 100mcg/2ml Vial IV 04/27/21 14:17 Q3MINP PRN Moderate to Severe Pain Fentanyl Citrate 25 mcg 04/26/21 14:17 Fentanyl 250mcg/5ml Vial IV 04/27/21 14:17 Q3MINP PRN Moderate to Severe Pain Fentanyl Citrate 50 mcg 04/26/21 14:17 Fentanyl 250mcg/5ml Vial IV 04/27/21 14:17 Q3MINP PRN Moderate to Severe Pain Flumazenil 0.2 mg 04/26/21 14:17 Flumazenil 0.1mg/Ml 5ml Vial IV 04/26/21 23:00 NEEDED PRN Sedation Heparin Sodium (Porcine) 10,000 unit 04/26/21 14:17 Heparin 1,000 Units/Ml 10ml Vial ([employer]) IV 04/26/21 18:17 NEEDED PRN Emergency Box [facility] Judge Sodium Chloride 1,000 mls @ 25 mls/hr 04/26/21 14:30 Sod Chlor 0.9% 1000ml Bag IV 04/27/21 14:17 .Q25H NOAH Midazolam HCl 1 mg 04/26/21 14:17 Midazolam 2mg/2ml Vial IV 04/27/21 14:17 Q3MINP PRN Sedation Midazolam HCl 1 mg 04/26/21 14:17 Midazolam Hcl 1mg/1ml 5ml Vial IV 04/27/21 14:17 Q3MINP PRN Sedation Naloxone HCl 0.4 mg 04/26/21 14:17 Naloxone 0.4mg/Ml Vial IV 04/27/21 14:17 Q5MINP PRN Decreased Respirations Nitroglycerin 800 mcg 04/26/21 14:17 Nitroglycerin 800mcg/8ml Syr ([employer]) IV 04/27/21 14:17 NEEDED PRN Emergency Box [facility] Judge Discontinued Medications Generic Name Dose Route Start Last Admin Trade Name Freq PRN Reason Stop Dose Admin Diphenhydramine HCl 50 mg 04/26/21 14:17 Diphenhydramine 50mg/Ml Vial IV 04/26/21 14:18 ONCE ONE Heparin Sodium/Sodium Chloride 3,000 unit 04/26/21 14:17 Heparin 1,000 Units/500ml Ns ([employer]) IV 04/26/21 14:18 ONCE ONE Lidocaine HCl 20 ml 04/26/21 14:17 Lidocaine 1% 10ml Mdv IJ 04/26/21 14:18 ONCE ONE Lidocaine HCl 20 ml 04/26/21 14:17 Lidocaine 1% 5ml Pf Vial IJ 04/26/21 14:18 ONCE ONE Verapamil HCl 2.5 mg 04/26/21 14:17 Verapamil 2.5mg/Ml 2ml Vial IV 04/26/21 14:18 ONCE ONE - ECG Data Tracing #1 EKG interpreted by Trenton Tirado MD: Rhythm: sinus Rate: 86 Margaret: normal Ectopy: none Conduction: normal ST Segment Changes: Elevation V4, V5, V6, inferior leads T Wave Changes: none Findings consistent with acute ST elevation CT. Medical Decision Narrative: STEMI alert called. Joesph Gonzalez responded immediately to the emergency department and the patient is being prepared to go to the [facility] [employer] [facility]. General Adult HPI - General Stated complaint: chest pain Time Seen by Provider: 04/26/21 14:12 - History of Present Illness HPI narrative: Complains of sternal chest pain into both arms with shortness of breath, nausea, diaphoresis beginning yesterday.
--- NOTE | 2021-04-26 14:25 | PC.NURSE ---
MESSAGE LEFT FOR DR ARGUETA
[2021-04-26 14:38] LABS: Basophils # 0.1 K/mm3 (0-0.2); Basophils % 0.9 % (0.1-2.0); Eosinophils % 0.3 % (0.1-12.0); Hematocrit 53.1 % (42.0-52.0); Hemoglobin 16.3 g/dL (14.1-18.0); Lymphocytes # 1.6 K/mm3 (0.7-4.5); Lymphocytes % 13.8 % (10-50); Mean Corpuscular HGB Conc 30.7 g/dL (31.8-35.4); Mean Corpuscular Hemoglobin 30.5 pg (27.0-31.2); Mean Corpuscular Volume 99.3 fl (80-94); Mean Platelet Volume 9.7 fl (7.4-10.4); Monocytes # 0.4 K/mm3 (0.1-1.0); Monocytes % 3.5 % (1.7-9.3); Neutrophils # 9.2 K/mm3 (1.8-7.8); Neutrophils % 81.5 % (37.0-80.0); Platelet Count 168 K/mm3 (142-424); Red Blood Count 5.34 M/mm3 (4.60-6.20); Red Cell Distribution Width 13.6 % (11.5-17.5); White Blood Count 11.3 K/mm3 (4.8-10.8)
[2021-04-26 14:42] LABS: Chloride 83 mmol/L (98-107); Potassium 4.6 mmoL/L (3.5-5.1); Sodium 123 mmol/L (136-145)
[2021-04-26 14:44] LABS: Alanine Aminotransferase 23 U/L (12-78); Aspartate Amino Transferase 29 U/L (17-59); Bilirubin,Unconjugated 0.4 mg/dL (0.0-1.1)
[2021-04-26 14:45] LABS: Albumin Level 4.3 g/dl (3.5-5.0); Alkaline Phosphatase 121 U/L (38-126); Anion Gap 21.6 mEq/L (5-15); Bilirubin,Direct 0.5 mg/dl (0.0-0.4); Bilirubin,Indirect 0.4 mg/dL (0.0-0.9); Bilirubin,Total 0.9 mg/dl (0.2-1.3); Blood Urea Nitrogen 17 mg/dl (9-20); Calcium 9.5 mg/dl (8.4-10.2); Carbon Dioxide 23 mmol/L (22.0-30.0); Chol/HDL Ratio 10.6 (1-3.5); Cholesterol 319 mg/dl (140-200); Creatinine Clearance Estimated 105 mL/min (50-200); Estimated Glomerular Filt Rate 87 ml/min (>60); GFR (African American) 105 ML/MIN (>60); HDL Cholesterol 30 mg/dl (40-60); Total Protein,Serum 7.2 g/dl (6.3-8.2)
--- NOTE | 2021-04-26 14:45 | HMH.CNCARD ---
History of Present Illness Consult date: 04/26/21 Requesting physician: Damon Valenzuela Consult reason: chest pain Chief complaint: STEMI Additional Medical History:: 1. CAD A. HI with ДМИТРИЙ, 2016, Dr. Stone, [place], [place] B. STEMI with ДМИТРИЙ to LAD, 1st OM and 2nd OM, 03/2020 B. ДМИТРИЙ to Left main and RCA, 08/2020 C. ДМИТРИЙ to LAD and RCA, 10/2020 D. Inf-Lat STEMI, ДМИТРИЙ to RCA, 04/2021 2. HTN 3. HLD 4. DM, insulin requiring A. Hgb A1c 10.8, 02/2021 5. COVID infection, PCR positive, 03/2020 and 04/2021 6. Depression, 03/2021 7. Medication non-compliance History of present illness: 55 yo WM with CP since yesterday with radiation to back and both arms. Taken a total of 7 NTG SL at home prior to ER. EKG shows inferior and anterolateral ST elevation. Taken urgently to laboratory worker. relates pt in deep depression over the last month and hasn't left bed for days at a time. Admits to not taking meds for at least 2 wks or more. [facility] History Medical History: Reports:: Arrhythmia, Coronary Artery Disease, Diabetes Mellitus Type 2, Hyperlipidemia, Hypertension, Myocardial Infarction Denies:: Cancer, Diabetes Mellitus Type 1, Internal Pacemaker, MRSA, Seizures *Have you ever received a pneumonia vaccine?: Yes *Have you received a flu vaccine this season?: Yes Other Medical History: Reports: Arthritis Other Surgeries: Yes: No Previous Surgery, Cardiac Catheterization, Colonoscopy, Coronary Stent. No: Pacemaker Amputation: No Fractures: No - *Social History Smoking Status: Former smoker Tobacco Type: cigarettes Alcohol Intake: never Substance Use Type: denies use *Occupational Status:: employed, disabled Housing: house Household Members: spouse *Travel in the last 8 weeks: Inside the [facility] Family Hx:: Coronary Artery Disease, Diabetes Meds Home Medications Medication Instructions Recorded Confirmed Type Aspirin [Aspirin 81mg EC Tab] 81 mg PO DAILY 04/15/20 04/26/21 History Metoprolol Succinate [Metoprolol 50 mg PO DAILY 04/15/20 04/26/21 History Succinate 50mg Tablet*] Pantoprazole Sodium [Protonix 40mg 40 mg PO BID 04/15/20 04/26/21 History tablet] Rosuvastatin Calcium [Crestor 40mg 40 mg PO HS 04/15/20 04/26/21 History Tablets] Sertraline HCl [Zoloft] 100 mg PO DAILY 04/15/20 04/26/21 History diazePAM [diazePAM 5mg Tablet] 5 mg PO BIDP PRN 04/15/20 04/26/21 History lisinopriL [Lisinopril 5mg 5 mg PO DAILY 04/15/20 04/26/21 History Tablet] Isosorbide Mononitrate [Isosorbide 30 mg PO DAILY 08/17/20 04/26/21 History Mononitrate ER] Furosemide [Furosemide 20mg Tab*] 20 mg PO DAILY 09/06/20 04/26/21 History aripiprazole 5 mg tablet 5 mg PO DAILY tab 11/09/20 04/26/21 History oxybutynin chloride 10 mg 10 mg PO DAILY tab 11/09/20 04/26/21 History tablet,extended release 24 hr spironolactone 25 mg tablet 25 mg PO DAILY 03/08/21 04/26/21 History Clopidogrel Bisulfate [Plavix] 75 mg PO DAILY 04/26/21 04/27/21 History Ranolazine [Ranolazine ER] 500 mg PO BID 04/26/21 04/26/21 History Insulin Regular, Human [Humulin R] 25 units SQ AC 04/27/21 04/27/21 History Nitroglycerin 0.4 mg SL Q5MINP PRN 04/27/21 04/27/21 History Promethazine/Dextromethorphan 5 ml PO Q6HP PRN 04/27/21 04/27/21 History [Promethazine-Dm Syrup] ondansetron HCL [Ondansetron 4mg 4 mg PO TIDP PRN 04/27/21 04/27/21 History tab*] Allergies Allergy/AdvReac Type Severity Reaction Status Date / Time codeine Allergy Unknown itching Verified 03/08/21 08:26 Iodinated Contrast Media Allergy Headache Verified 03/08/21 08:26 Exam Vital signs and Labs for Last 24 Hours: Laboratory Results - last 24 hr 04/26/21 14:17: WBC 11.3 H, RBC 5.34, Hgb 16.3, Hct 53.1 H, MCV 99.3 H, MCH 30.5, MCHC 30.7 L, RDW 13.6, Plt Count 168, MPV 9.7, Neut % (Auto) 81.5 H, Lymph % (Auto) 13.8, [place] % (Auto) 3.5, Eos % (Auto) 0.3, Baso % (Auto) 0.9, Neut # (Auto) 9.2 H, Lymph # (Auto) 1.6, [place] # (Auto) 0.4, Eos # (Auto) 0.0, Baso #
[2021-04-26 14:56] LABS: Direct LDL Cholesterol 150.03 mg/dL (100-129)
[2021-04-26 15:03] LABS: Triglycerides 772 mg/dl (30-150)
[2021-04-26 15:15] LABS: CATHL Activated Clotting Time 300 SEC (74-125)
[2021-04-26 15:15] LABS: Hemoglobin A1C > 14.0 % (4.0-6.0)
[2021-04-26 15:23] LABS: Influenza A, PCR Not Detected (NotDetected); Influenza B, PCR Not Detected (NotDetected)
--- NOTE | 2021-04-26 15:32 | PC.NURSE ---
Pt arrived to the floor at this time
[2021-04-26 15:42] LABS: Coronavirus 19, PCR Detected (NotDetected)
--- NOTE | 2021-04-26 15:54 | P.CONPHA_ITS ---
[facility] Pharmacy VTE Monitoring - Patient Demographics Admission date: 04/26/21 Report Date: 04/26/21 Time: 15:54 Allergies/Adverse Reactions: Patient Allergies codeine Allergy (Unknown, Verified 03/08/21 08:26) itching Iodinated Contrast Media Allergy (Verified 03/08/21 08:26) Headache Height: 1.7 m Weight: 81.647 kg Patient Problems: Current Active Problems (Last Updated 08/24/20 @ 09:50 by Kassandra Lester RN) ST elevation GA (STEMI) (Acute) Depressed (Acute) Hyponatremia (Acute) HTN (hypertension) (Chronic) HLD (hyperlipidemia) (Chronic) DM (diabetes mellitus) (Chronic) CAD (coronary artery disease) (Chronic) - VTE Risk Labs: VTE Related Lab Results Hgb 16.3 g/dL (14.1-18.0) 04/26/21 14:17 Hct 53.1 % (42.0-52.0) H 04/26/21 14:17 Plt Count 168 K/mm3 (142-424) 04/26/21 14:17 BUN 17 mg/dl (9-20) 04/26/21 14:17 Creatinine 0.90 mg/dl (0.66-1.25) 04/26/21 14:17 Estimated Creat Clear 105 mL/min (50-200) 04/26/21 14:17 - Prophylaxis VTE Prophylaxis Ordered?: Yes Types of VTE Prophylaxis: TEDS Knee High Location of Applied Device: Bilateral Lower Extremeties
[2021-04-26 16:15] LABS: Glucose 815 mg/dl (74-100)
--- NOTE | 2021-04-26 16:21 | PC.NURSE ---
received call from lab reporting glucose 816. Name and verified. Notified Dr. Valenzuela of glucose level, gap 21, A1C > 14, and lipid panel results.
--- NOTE | 2021-04-26 16:23 | PC.NURSE ---
new order received from Dr. Valenzuela to start insulin gtt @ 10 units/hr and to follow DKA titration for insulin gtt based on POC blood sugars. Order faxed to pharmacy.
--- NOTE | 2021-04-26 16:40 | PC.NURSE ---
Insulin gtt started @ 10 units/hr.
[2021-04-26 18:40] LABS: POC Glucose,Bedside 549 (70-110)
[2021-04-26 20:03] LABS: POC Glucose,Bedside 503 (70-110)
[2021-04-26 20:36] LABS: Glucose,Random 526 mg/dL (74-100)
[2021-04-26 22:00] LABS: POC Glucose,Bedside 467 (70-110)
[2021-04-27] VITALS (10 sets, daily range): BP systolic 99–122; BP diastolic 51–75; PULSE 59–83; RESP 14–26; TEMP 36.2–37.1; O2SAT 93–96; BMI 29.0
[2021-04-27 00:10] LABS: POC Glucose,Bedside 377 (70-110)
[2021-04-27 00:23] LABS: Anion Gap 11.7 mEq/L (5-15); Blood Urea Nitrogen 17 mg/dl (9-20); Calcium 9.3 mg/dl (8.4-10.2); Carbon Dioxide 28 mmol/L (22.0-30.0); Chloride 96 mmol/L (98-107); Creatinine Clearance Estimated 147 mL/min (50-200); Estimated Glomerular Filt Rate 116 ml/min (>60); GFR (African American) 141 ML/MIN (>60); Potassium 4.7 mmoL/L (3.5-5.1); Sodium 131 mmol/L (136-145)
[2021-04-27 00:24] LABS: Acetone, Serum (Rapid) None Detected (None Detect)
[2021-04-27 00:26] LABS: Glucose 400 mg/dl (74-100)
[2021-04-27 01:15] LABS: POC Glucose,Bedside 336 (70-110)
[2021-04-27 02:56] LABS: POC Glucose,Bedside 422 (70-110)
--- NOTE | 2021-04-27 03:01 | PC.NURSE ---
Pt resting in bed. C/O some discomfort to head and chest. Medicated per may. Insulin gtt discontinued after labs obtained. Gap closed. No serum acetone detected. Pt was asked about home insulin. Pt states he takes 120-150 units at 0800 & 2000. Pt also stated he takes fast acting insulin with meals. (R) radial cath site is C/D/I. VSS. Will continue to monitor.
[2021-04-27 04:47] LABS: POC Glucose,Bedside 427 (70-110)
--- NOTE | 2021-04-27 05:03 | PC.NURSE ---
0430. MD Bess notified of pt c/o CP. New orders received. Morphine order changed to Q30 min prn. Tylenol 650 mg ordered. Nitro 0.4 mg SL. Orders carried out. Pt states pain has improved and requested coffee.
[2021-04-27 05:39] LABS: POC Glucose,Bedside 445 (70-110)
[2021-04-27 06:21] LABS: Chloride 93 mmol/L (98-107); Potassium 4.4 mmoL/L (3.5-5.1); Sodium 124 mmol/L (136-145)
[2021-04-27 06:24] LABS: Anion Gap 12.4 mEq/L (5-15); Blood Urea Nitrogen 18 mg/dl (9-20); Carbon Dioxide 23 mmol/L (22.0-30.0); Creatinine Clearance Estimated 147 mL/min (50-200); Estimated Glomerular Filt Rate 116 ml/min (>60); GFR (African American) 141 ML/MIN (>60)
[2021-04-27 06:25] LABS: Calcium 8.8 mg/dl (8.4-10.2)
[2021-04-27 06:33] LABS: Glucose 487 mg/dl (74-100)
[2021-04-27 06:54] LABS: Basophils # 0.1 K/mm3 (0-0.2); Basophils % 0.5 % (0.1-2.0); Eosinophils % 0.2 % (0.1-12.0); Hematocrit 42.9 % (42.0-52.0); Lymphocytes # 1.7 K/mm3 (0.7-4.5); Lymphocytes % 15.7 % (10-50); Mean Corpuscular HGB Conc 31.4 g/dL (31.8-35.4); Mean Corpuscular Hemoglobin 29.8 pg (27.0-31.2); Mean Corpuscular Volume 95.2 fl (80-94); Mean Platelet Volume 9.5 fl (7.4-10.4); Monocytes # 0.4 K/mm3 (0.1-1.0); Monocytes % 3.5 % (1.7-9.3); Neutrophils # 8.7 K/mm3 (1.8-7.8); Neutrophils % 80.1 % (37.0-80.0); Platelet Count 149 K/mm3 (142-424); Red Cell Distribution Width 13.7 % (11.5-17.5); White Blood Count 10.9 K/mm3 (4.8-10.8)
[2021-04-27 07:10] LABS: Hemoglobin 13.4 g/dL (14.1-18.0)
--- NOTE | 2021-04-27 07:54 | HMH.PHAINT ---
MEDICATION RECONCILIATION COMPLETED ON PATIENT USING EXTERNAL FILL HISTORY FROM PHARMACY. -ROSEANNA MURRAY, KORYD
--- NOTE | 2021-04-27 08:11 | HMH.PNCARD ---
Subjective Date: 04/27/21 Time: 08:11 Principal diagnosis: STEMI Interval history: 55-year-old white male in bed in no acute distress. Still requiring frequent pain medication for chest discomfort. Very remorseful over events that have happened in the last 24 hours stating that he brought this on himself. Relates depression over events of the last year and this has been complicated by contention with a neighbor. Relates stopped taking his medicines over a month ago. Telemetry shows NSR without arrhythmias overnight. Exam Vital signs and Labs for Last 24 Hours: Temp Pulse Resp BP Pulse Ox 98.7 F 70 26 H 111/51 L 96 04/27/21 04:00 04/27/21 04:00 04/27/21 04:00 04/27/21 04:00 04/27/21 04:00 Laboratory Results - last 24 hr 04/26/21 14:17: WBC 11.3 H, RBC 5.34, Hgb 16.3, Hct 53.1 H, MCV 99.3 H, MCH 30.5, MCHC 30.7 L, RDW 13.6, Plt Count 168, MPV 9.7, Neut % (Auto) 81.5 H, Lymph % (Auto) 13.8, [place] % (Auto) 3.5, Eos % (Auto) 0.3, Baso % (Auto) 0.9, Neut # (Auto) 9.2 H, Lymph # (Auto) 1.6, [place] # (Auto) 0.4, Eos # (Auto) 0.0, Baso # (Auto) 0.1 04/26/21 14:17: Sodium 123 L, Potassium 4.6, Chloride 83 L, Carbon Dioxide 23, Anion Gap 21.6 H, BUN 17, Creatinine 0.90, Estimated Creat Clear 105, Estimated GFR 87, Est GFR ( Amer) 105, Glucose 815 H*, Calcium 9.5, Troponin I 0.20 H 04/26/21 14:17: Total Bilirubin 0.9, Direct Bilirubin 0.5 H, Conjugated Bilirubin 0.0, Indirect Bilirubin 0.4, Unconjugated Bilirubin 0.4, AST 29, ALT 23, Alkaline Phosphatase 121, Total Protein 7.2, Albumin 4.3, Triglycerides 772 H, Cholesterol 319 H, LDL Cholesterol Direct 150.03 H, HDL Cholesterol 30 L, Cholesterol/HDL Ratio 10.6 H 04/26/21 14:17: Hemoglobin A1c > 14.0 H D 04/26/21 15:17: SARS-CoV-2 (PCR) Detected A, Influenza A Untype (PCR) Not detected, Influenza Type B (PCR) Not detected 04/26/21 15:45: Activated Clotting Time 300 H* 04/26/21 18:02: POC Glucose 549 H* 04/26/21 19:51: POC Glucose 503 H* 04/26/21 20:11: Random Glucose 526 H* 04/26/21 21:39: POC Glucose 467 H* 04/26/21 23:56: POC Glucose 377 H* 04/26/21 23:59: Sodium 131 L, Potassium 4.7, Chloride 96 L, Carbon Dioxide 28, Anion Gap 11.7, BUN 17, Creatinine 0.70 D, Estimated Creat Clear 147, Estimated GFR 116, Est GFR ([facility] Amer) 141 D, Glucose 400 H D, Calcium 9.3 04/26/21 23:59: Acetone Level None detected 04/27/21 01:06: POC Glucose 336 H* 04/27/21 02:17: POC Glucose 422 H* 04/27/21 04:10: POC Glucose 427 H* 04/27/21 05:28: POC Glucose 445 H* 04/27/21 06:00: WBC 10.9 H, RBC 4.50 L, Hgb 13.4 L D, Hct 42.9, MCV 95.2 H, MCH 29.8, MCHC 31.4 L, RDW 13.7, Plt Count 149, MPV 9.5, Neut % (Auto) 80.1 H, Lymph % (Auto) 15.7, [place] % (Auto) 3.5, Eos % (Auto) 0.2, Baso % (Auto) 0.5, Neut # (Auto) 8.7 H, Lymph # (Auto) 1.7, [place] # (Auto) 0.4, Eos # (Auto) 0.0, Baso # (Auto) 0.1 04/27/21 06:00: Sodium 124 L, Potassium 4.4, Chloride 93 L, Carbon Dioxide 23, Anion Gap 12.4, BUN 18, Creatinine 0.70, Estimated Creat Clear 147, Estimated GFR 116, Est GFR ( Amer) 141, Glucose 487 H* D, Calcium 8.8 I & O for Last 24 hours: Intake & Output 04/24/21 04/25/21 04/26/21 04/27/21 11:59 11:59 11:59 11:59 Intake Total 480 / 480 Output Total 2350 / 2350 Balance -1870 / -1870 Weight 196 lb 6 oz - Constitutional no acute distress - *Routine Respiratory Exam Present: CTA bilaterally - *Routine Cardiovascular Exam Present: RRR - *Routine Extremities Exam Absent: cyanosis, clubbing, edema Progress Note: A&P (1) STEMI (ST elevation myocardial infarction) Status: Resolved Assessment and plan: ДМИТРИЙ to RCA, restarted ASA and plavix. (2) CAD (coronary artery disease) Status: Chronic Assessment and plan: Restarted isosorbide and ranexa. (3) DM (diabetes mellitus) Status: Chronic (4) HLD (hyperlipidemia) Status: Chronic Assessment and plan: Atorvastatin restarted. (5) HTN (hypertension) Status: Chronic (6) Depressed Status: Acute Assessme
--- NOTE | 2021-04-27 08:22 | CA_ITS ---
APPROVED REPORT EXAM: Comprehensive 2D, Doppler, and color-flow Echocardiogram [employer] Machine Operator: Adriana Evans CRT Ht: 5 ft 9 in Wt: 196lbs BSA: 2.05 BP: 111/51 mmHg Indications: Covid 19, Stemi, stents Diabetes, Fatigue, Hyperlipidemia, Hypertension/HDD 2D Dimensions LVOT 1.80 cm (M/F) 1.5-2.5 LA Volume 37.10 mL LA Volume Index 18.10 mL/m2 (M/F) 16-34 M-Mode Dimensions RVDd 2.65 cm (0.9-2.6) LA Diam 3.68 cm (1.9-4.0) LVDd 4.90 cm (3.5-5.7) Ao Diam 4.43 cm (2.0-3.7) LVDs 2.86 cm (3.5-5.7) IVSd 1.65 cm (0.6-1.1) PWd 0.54 cm (0.6-1.1) EF (Teich) 72.40% FS 41.60% EDV (Teich) 112.80 mL TAPSE 2.64 (<1.7) ESV (Teich) 31.10 mL LV Diastology E Decel Time 300.00 (160-240 msec) E/A Ratio 0.66 MED E' 5.10 (< 7 cm/sec) MED A' 11.70 cm/s E'/MED E' Ratio 10.14 (>14) LAT E' 10.40 (<10 cm/sec) LAT A' 18.70 cm/s E/LAT E' Ratio 4.97 (>14) Aortic Valve AO Peak GR. 9.40 mmHg Mitral Valve MV A Velocity 79.00 (40-130 cm/s) E/A Ratio 0.66 MV Decel. Time 300.00 (160-240 ms) Pulmonary Valve PV Peak Velocity 176.00 (50-150 cm/s) Tricuspid Valve TR P. Velocity 184.00 cm/s RAP Estimate 10.00 mmHg RVSP 23.50 mmHg Left Ventricle Left atrium is mildly enlarged, left ventricle is normal size, mild concentric left ventricular hypertrophy, visually estimated ejection fraction 50%, there is moderate inferior basal wall hypokinesis, grade 1 diastolic dysfunction seen without tissue Doppler evidence of raise left atrial pressure. Right Ventricle Right atrium and right ventricle are mildly enlarged with normal contractility. Aortic Valve Aortic valve is minimally thickened and fibrosed. There is no aortic stenosis or aortic insufficiency. Mitral Valve Mitral valve grossly normal, there is trace mitral regurgitation. Tricuspid Valve Tricuspid valve grossly normal, there is trace tricuspid regurgitation, tricuspid regurgitation jet velocity is inadequate for calculation of the right ventricular systolic pressure. Pulmonic Valve Pulmonic valve is poorly visualized. Great Vessels Aortic root is normal size. Inferior vena cava is poorly visualized. Pericardium No significant pericardial effusion noted. Conclusion 1. Mild biatrial alignment, normal left ventricular size, mild concentric left ventricular hypertrophy, visually estimated ejection fraction 50% with segmental wall motion abnormality described above, grade 1 diastolic dysfunction seen without tissue Doppler evidence of raise left atrial pressure. 2. Mildly enlarged right ventricle with normal contractility. 3. Trace mitral and tricuspid regurgitation. 4. No significant pericardial effusion. 5. Inferior vena cava is poorly visualized. Electronically signed by : Tony Resendiz MD 04/27/2021 21:47:07
--- NOTE | 2021-04-27 09:05 | HMH.HP ---
*Admission Date: 04/26/21 *Chief complaint: Chest pain/STEMI *History of present illness: 55-year-old white male with significant/uncontrolled/severe diabetes with insulin requirements, significant hyperlipidemia and well-established and aggressive coronary atherosclerotic disease, coupled with psychiatric disease, medical noncompliance and significant antisocial behaviors, who stopped taking his medication 3 weeks ago because I wanted to end my life. He as a result began to have chest pain over the past couple of weeks, this became intolerable to him and he became very ill with vomiting and came to the ER where he was found to have developed Q waves consistent with a STEMI. Taken to Lithographic Camera Operator yesterday. Please see results. Appreciate input and catheterization results. Admitted to the floor afterwards for medical management, treatment of ongoing pain secondary to completed MD. [facility] History I have reviewed the patient's past medical history: Yes Medical History: Reports:: Arrhythmia, Coronary Artery Disease, Diabetes Mellitus Type 2, Hyperlipidemia, Hypertension, Myocardial Infarction Denies:: Cancer, Diabetes Mellitus Type 1, Internal Pacemaker, MRSA, Seizures *Have you ever received a pneumonia vaccine?: No *Have you received a flu vaccine this season?: No Other Medical History: Reports: Arthritis Other Surgeries: Yes: No Previous Surgery, Cardiac Catheterization, Colonoscopy, Coronary Stent. No: Pacemaker Amputation: No Fractures: No - *Social History Smoking Status: Former smoker Tobacco Type: cigarettes Alcohol Intake: never Substance Use Type: denies use *Occupational Status:: disabled Housing: house Household Members: spouse *Travel in the last 8 weeks: Inside the [facility] Family Hx:: Coronary Artery Disease, Diabetes Review of Systems - Review of Systems Review of systems:: pertinent systems reviewed and negative unless documented below - *Neurologic Reports behavioral changes Meds Home Medications Medication Instructions Recorded Confirmed Type Aspirin [Aspirin 81mg EC Tab] 81 mg PO DAILY 04/15/20 04/26/21 History Metoprolol Succinate [Metoprolol 50 mg PO DAILY 04/15/20 04/26/21 History Succinate 50mg Tablet*] Pantoprazole Sodium [Protonix 40mg 40 mg PO BID 04/15/20 04/26/21 History tablet] Rosuvastatin Calcium [Crestor 40mg 40 mg PO HS 04/15/20 04/26/21 History Tablets] Sertraline HCl [Zoloft] 100 mg PO DAILY 04/15/20 04/26/21 History diazePAM [diazePAM 5mg Tablet] 5 mg PO BIDP PRN 04/15/20 04/26/21 History lisinopriL [Lisinopril 5mg 5 mg PO DAILY 04/15/20 04/26/21 History Tablet] Isosorbide Mononitrate [Isosorbide 30 mg PO DAILY 08/17/20 04/26/21 History Mononitrate ER] Furosemide [Furosemide 20mg Tab*] 20 mg PO DAILY 09/06/20 04/26/21 History aripiprazole 5 mg tablet 5 mg PO DAILY tab 11/09/20 04/26/21 History oxybutynin chloride 10 mg 10 mg PO DAILY tab 11/09/20 04/26/21 History tablet,extended release 24 hr spironolactone 25 mg tablet 25 mg PO DAILY 03/08/21 04/26/21 History Clopidogrel Bisulfate [Plavix] 75 mg PO DAILY 04/26/21 04/27/21 History Ranolazine [Ranolazine ER] 500 mg PO BID 04/26/21 04/26/21 History Insulin Regular, Human [Humulin R] 25 units SQ AC 04/27/21 04/27/21 History Nitroglycerin 0.4 mg SL Q5MINP PRN 04/27/21 04/27/21 History Promethazine/Dextromethorphan 5 ml PO Q6HP PRN 04/27/21 04/27/21 History [Promethazine-Dm Syrup] ondansetron HCL [Ondansetron 4mg 4 mg PO TIDP PRN 04/27/21 04/27/21 History tab*] Allergies Allergy/AdvReac Type Severity Reaction Status Date / Time codeine Allergy Unknown itching Verified 03/08/21 08:26 Iodinated Contrast Media Allergy Headache Verified 03/08/21 08:26 Exam Vital signs and Labs for Last 24 Hours: Temp Pulse Resp BP Pulse Ox 98.7 F 70 26 H 111/51 L 96 04/27/21 04:00 04/27/21 04:00 04/27/21 04:00 04/27/21 04:00 04/27/21 04:00 Laboratory Results - last 24 hr 04/26/21 14:17
--- NOTE | 2021-04-27 11:56 | PC.NURSE ---
FSBS 451. Contacted Dr. Valenzuela, who ordered to give 20 units of Lispro insulin per SSI protocol and to give an additional 10 units Lispro IV x 1 dose. Order for 10 units faxed to pharmacy.
--- NOTE | 2021-04-27 14:18 | PC.NURSE ---
report given to Jasmeet Vela RN as she will assume care of pt at this time
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
[2021-04-27 18:30] LABS: POC Glucose,Bedside 451 (70-110)
[2021-04-27 18:30] LABS: POC Glucose,Bedside 407 (70-110)
[2021-04-27 21:03] LABS: POC Glucose,Bedside 330 (70-110)
[2021-04-28] VITALS: BP 132/79; PULSE 70; PULSE 86; RESP 22; TEMP 36.6; O2SAT 96
[2021-04-28 04:00] VITALS: BP 103/64; PULSE 70; PULSE 75; RESP 18; TEMP 37.1; O2SAT 95
[2021-04-28 06:52] LABS: Basophils # 0.1 K/mm3 (0-0.2); Eosinophils # 0.1 K/mm3 (0.0-0.4); Eosinophils % 1.2 % (0.1-12.0); Hematocrit 44.1 % (42.0-52.0); Hemoglobin 13.8 g/dL (14.1-18.0); Lymphocytes # 3.3 K/mm3 (0.7-4.5); Lymphocytes % 30.7 % (10-50); Mean Corpuscular HGB Conc 31.4 g/dL (31.8-35.4); Mean Corpuscular Volume 95.5 fl (80-94); Monocytes # 0.4 K/mm3 (0.1-1.0); Monocytes % 3.6 % (1.7-9.3); Neutrophils # 6.9 K/mm3 (1.8-7.8); Neutrophils % 63.5 % (37.0-80.0); Platelet Count 138 K/mm3 (142-424); Red Blood Count 4.62 M/mm3 (4.60-6.20); Red Cell Distribution Width 13.7 % (11.5-17.5); White Blood Count 10.9 K/mm3 (4.8-10.8)
[2021-04-28 06:57] LABS: Chloride 98 mmol/L (98-107); Sodium 128 mmol/L (136-145)
[2021-04-28 07:01] LABS: Blood Urea Nitrogen 17 mg/dl (9-20); Calcium 7.9 mg/dl (8.4-10.2); Carbon Dioxide 25 mmol/L (22.0-30.0); Creatinine Clearance Estimated 128 mL/min (50-200); Estimated Glomerular Filt Rate 100 ml/min (>60); GFR (African American) 121 ML/MIN (>60)
[2021-04-28 07:09] LABS: Glucose 418 mg/dl (74-100)
[2021-04-28 08:00] VITALS: BP 109/70; PULSE 84; RESP 16; TEMP 36.8; O2SAT 96
--- NOTE | 2021-04-28 08:56 | HMH.DCSUM ---
General - General Admission date:: 04/26/21 Discharge date: 04/28/21 [facility] HPI: 55-year-old white male with significant/uncontrolled/severe diabetes with insulin requirements, significant hyperlipidemia and well-established and aggressive coronary atherosclerotic disease, coupled with psychiatric disease, medical noncompliance and significant antisocial behaviors, who stopped taking his medication 3 weeks ago because I wanted to end my life. He as a result began to have chest pain over the past couple of weeks, this became intolerable to him and he became very ill with vomiting and came to the ER where he was found to have developed Q waves consistent with a STEMI. Taken to Benzene Washer yesterday. Please see results. Appreciate input and catheterization results. Admitted to the floor afterwards for medical management, treatment of ongoing pain secondary to completed NH. Hospital Course Hospital Course: Patient was admitted as noted in HPI and taken to catheterization lab with the following reports noted by cardiology: TECHNIQUE One percent lidocaine used to anesthetize the right anterior aspect of the wrist. The right radial artery was accessed via the Seldinger technique. A 6 Slovenian sheath was placed in the right radial artery. 2.5 mg of verapamil, 800 mcg of nitroglycerin, 1mg Lidocaine and 5000 U Heparin were given through the arterial sheath. A Inivata catheter guide liner were initially used for angiography. Eventually a multipurpose catheter was placed in the right coronary and a Choice PT floppy wire was placed distally. A 5 mm x 18 mm resolute Ángel stent was deployed at 20 kayden in the mid right coronary reducing the large thrombosis to 0%. SAGE-3 flow was present before and after the procedure. Despite SAGE-[address] elevation was present. Following this a 6 Slovenian JL 3 guide catheter was used to perform left coronary angiography. At the end the procedure the apparatus was removed the sheath was removed and hemostasis was achieved using TR banding patient was transferred to the postop holding area in guarded condition ANGIOGRAPHIC RESULTS The left main artery Has a stent in the ostial proximal segment which is widely patent free of in-stent restenosis with excellent proximal distal transitioning The left anterior descending artery Is a small vessel with proximal 30% stenoses in a mid vessel long concentric 70 to 80% stenosis at a 2 mm segment. The LAD does not touch the apex. There is a stent in the mid segment of the LAD which is widely patent free of in-stent restenosis with excellent proximal distal transitioning The circumflex artery Is a vestigial vessel and patent. There is a small terminal obtuse marginal artery which is subtotally occluded The right coronary artery Is a large massive dominant vessel which has a large thrombus in the midsegment. Distally there are diffuse 30% stenoses throughout the extremity large posterior descending artery and posterior lateral branch The RAMIREZ ventriculogram reveals not performed The left ventricular end-diastolic pressure not measured IMPRESSION Large inferolateral myocardial infarction with persistent ST elevation despite SAGE-3 flow and complete revascularization with 1 drug-eluting stent Persistent severe stenosis in the mid small LAD PLAN 1. Dual antiplatelet therapy 2. Supportive care with continuous telemetry monitoring 3. Patient has persistent ST elevation and is experiencing ongoing chest pain. This will likely persist over the next 24 to 48 hours at a minimum and he will likely require copious IV pain medicine 4. Avoidance of tobacco products 5. Cardiac rehabilitation 6. Echocardiogram Electronically signed by : Syed Bess MD 04/26/2021 15:00:16 As per cardiology recommendations the patient was kept for the next 48 hours in the telemetry monitoring unit. He had no dysrhythmias, no evidence of CHF without dys
--- NOTE | 2021-04-28 09:21 | P.PN_ITS ---
Subjective Date: 04/28/21 Time: 09:21 Principal diagnosis: STEMI Interval history: 55-year-old white male in bed in no acute distress. Still has some chest discomfort eased by the pain medication at times. He is anxious to go home since he has not slept well during his hospitalization. He is very appreciative of the services provided in the hospital. Telemetry shows sinus rhythm with no arrhythmias overnight. Echocardiogram showed ejection fraction of 50% with segmental wall motion abnormality in the inferobasal wall. Exam Vital signs and Labs for Last 24 Hours: Temp Pulse Resp BP Pulse Ox 98.2 F 84 16 109/70 L 96 04/28/21 08:00 04/28/21 08:00 04/28/21 08:00 04/28/21 08:00 04/28/21 08:00 Laboratory Results - last 24 hr 04/27/21 11:50: POC Glucose 451 H* 04/27/21 16:50: POC Glucose 407 H* 04/27/21 20:52: POC Glucose 330 H* 04/28/21 06:07: WBC 10.9 H, RBC 4.62, Hgb 13.8 L, Hct 44.1, MCV 95.5 H, MCH 30.0, MCHC 31.4 L, RDW 13.7, Plt Count 138 L, MPV 9.0, Neut % (Auto) 63.5, Lymph % (Auto) 30.7, [place] % (Auto) 3.6, Eos % (Auto) 1.2, Baso % (Auto) 1.0, Neut # (Auto) 6.9, Lymph # (Auto) 3.3, [place] # (Auto) 0.4, Eos # (Auto) 0.1, Baso # (Auto) 0.1 04/28/21 06:07: Sodium 128 L, Potassium 4.0, Chloride 98, Carbon Dioxide 25, Anion Gap 9.0, BUN 17, Creatinine 0.80, Estimated Creat Clear 128, Estimated GFR 100, Est GFR ( Amer) 121, Glucose 418 H*, Calcium 7.9 L I & O for Last 24 hours: Intake & Output 04/25/21 04/26/21 04/27/21 04/28/21 11:59 11:59 11:59 11:59 Intake Total 720 / 720 600 / 600 Output Total 2350 / 2350 450 / 450 Balance -1630 / -1630 150 / 150 Weight 196 lb 3.382 oz - Constitutional no acute distress - *Routine Respiratory Exam Present: CTA bilaterally - *Routine Cardiovascular Exam Present: RRR - *Routine Neurological Exam Present: alert, oriented X3 Progress Note: A&P (1) STEMI (ST elevation myocardial infarction) Status: Resolved (2) CAD (coronary artery disease) Status: Chronic (3) DM (diabetes mellitus) Status: Chronic (4) HLD (hyperlipidemia) Status: Chronic (5) HTN (hypertension) Status: Chronic (6) Depressed Status: Acute (7) Hyponatremia Status: Acute (8) COVID-19 Status: Acute Assessment and Plan for All Diagnoses:: 1. Clinically stable from a cardiac standpoint for discharge home. 2. Home medication recommendations include aspirin 81 mg daily, Plavix 75 mg daily, lisinopril 5 mg daily, isosorbide mononitrate 30 mg daily, Ranexa 500 mg twice daily and atorvastatin 40 mg daily 3. Follow-up in our office in 1 week 4. Strongly encouraged him to follow-up with his mental health provider.
--- NOTE | 2021-04-28 11:12 | PC.NURSE ---
Per Dr Valenzuela, Cardiology states that pt is not able to be discharged until after lunch.
[2021-04-28 11:52] VITALS: BP 116/72; PULSE 85; RESP 20; TEMP 36.4; O2SAT 96
[2021-04-28 12:33] LABS: POC Glucose,Bedside 434 (70-110)
--- NOTE | 2021-04-28 13:10 | HMH.PHACLD ---
Mirza Small has received discharge medication counseling on the following medications: PATIENT IS CURRENTLY TAKING ASPIRIN 81 MG EC DAILY, CLOPIDOGREL 75 MG DAILY, LISINOPRIL 5 MG DAILY, METOPROLOL SUCCINATE 50 MG DAILY, AND ROSUVASTATIN 40 MG HS.
[2021-04-29 10:28] LABS: POC Glucose,Bedside 437 (70-110)
== END 2021-04-28 15:28 | disposition home or self-care (01) | DRG 246 ==
LOC: ER 14:35 → 2ND 15:10 → ER 17:04 → SDC 17:04
PROVIDERS: Internal Medicine; Physician Assistant; Admitting Provider Internal Medicine Adolescent Medicine; Emergency Provider Emergency Medicine; PCP Internal Medicine Adolescent Medicine; Visit Provider Internal Medicine Adolescent Medicine
PROC: 027034Z Dilation of Coronary Artery, One Artery with Drug-eluting Intraluminal Device, Percutaneous Approach (ICD-10-PCS; principal; 2021-04-26 14:15)
DX: I21.29 ST elevation (STEMI) myocardial infarction involving other sites (principal); I25.10 Atherosclerotic heart disease of native coronary artery without angina pectoris; U07.1 COVID-19; E87.1 Hypo-osmolality and hyponatremia; I10 Essential (primary) hypertension; Z79.4 Long term (current) use of insulin; E11.9 Type 2 diabetes mellitus without complications; E78.5 Hyperlipidemia, unspecified; F32.A Depression, unspecified; Z87.891 Personal history of nicotine dependence; Z91.19 Patient's noncompliance with other medical treatment and regimen; I25.2 Old myocardial infarction
CPT/HCPCS: 36415; 80048; 80061; 80076; 82009; 82947; 82962; 83036; 84484; 85025; 85347; 92941; 93005; 93306; 93308; 93458; 96374; 99152; 99153; 99283; C1725; C1769; C1876; C9606; C9803; J1644; J2405; Q9967; U0003; U0005

== ENCOUNTER → 2021-05-04 08:50 | Outpatient (CLI) | payer MEDICARE, SELFPAY ==
[2021-05-04 10:05] LABS: Anion Gap 13.2 mEq/L (5-15); Blood Urea Nitrogen 13 mg/dl (9-20); Carbon Dioxide 31 mmol/L (22.0-30.0); Chloride 95 mmol/L (98-107); Estimated Glomerular Filt Rate 116 ml/min (>60); GFR (African American) 141 ML/MIN (>60); Potassium 5.2 mmoL/L (3.5-5.1); Sodium 134 mmol/L (136-145)
[2021-05-04 10:08] LABS: Glucose 425 mg/dl (74-100)
== END ==
PROVIDERS: Physician Assistant; PCP Internal Medicine Adolescent Medicine; Visit Provider Internal Medicine
DX: E87.5 Hyperkalemia (principal)
CPT/HCPCS: 36415; 80048

== ENCOUNTER → 2021-06-01 10:56 | Outpatient (CLI) | payer MEDICARE, SELFPAY ==
[2021-06-01 14:02] LABS: Amphetamine/Metha Screen,Urine Negative ng/ml (<1000)
[2021-06-01 14:03] LABS: Barbiturates Screen,Urine Negative ng/ml (<200)
[2021-06-01 14:04] LABS: Benzodiazepines Screen,Urine Positive ng/ml (<200); Cannabinoid Screen,Urine Negative ng/ml (<50)
[2021-06-01 14:05] LABS: Cocaine Screen,Urine Negative ng/ml (<300)
[2021-06-01 14:06] LABS: Methadone Screen,Urine Negative ng/ml (<300); Opiate Screen,Urine Negative ng/ml (<300)
[2021-06-01 14:07] LABS: Phencyclidine Screen,Urine Negative ng/ml (<25)
== END ==
PROVIDERS: Visit Provider Physician Assistant
DX: F11.90 Opioid use, unspecified, uncomplicated (principal)
CPT/HCPCS: 80305

== ENCOUNTER → 2021-07-14 10:35 | Outpatient (CLI) | payer MEDICARE, SELFPAY ==
--- NOTE | 2021-07-14 10:40 | CT_ITS ---
FINAL REPORT TECHNIQUE: Thin section axial CT with IV contrast supplemented with multiplanar reconstruction under CT angiogram protocol. 3-D reconstructions were performed. This study was performed with techniques to keep radiation doses as low as reasonably achievable (ALARA). Individualized dose reduction techniques using automated exposure control or adjustment of mA and/or kV according to the patient''s size were employed. CLINICAL HISTORY: headaches FINDINGS: There is mild lobular mucoperiosteal thickening in both maxillary sinuses. There are no air-fluid levels. The distal vertebral, basilar and distal internal carotid arteries have an unremarkable appearance. No aneurysm is seen. Major intracranial vessels are patent without significant stenosis. IMPRESSION: No aneurysm or stenosis. Reviewed, Interpreted and Dictated by Franky Diggs MD Transcribed by Duc Gautam Authenticated by Franky Diggs MD on 07/14/2021 01:05:55 PM [facility]
--- NOTE | 2021-07-14 11:20 | PC.NURSE ---
pt presents today for ct scan and reports an allergy to ct contrast. md ordered premeds to be administered prior to ct scan today and was sent to outpt infusion for po dosing. pt administered md ordered premeds at this time. pt ambulated back to [facility] to wait for procedure.
== END ==
LOC: RAD 10:37
PROVIDERS: PCP Internal Medicine Adolescent Medicine; Visit Provider Physician Assistant
DX: R51.9 Headache, unspecified (principal)
CPT/HCPCS: 70496; G0463; Q9967

== ENCOUNTER 2022-01-11 11:40 | Inpatient (IN) | payer MEDICARE, SELFPAY ==
[2022-01-11] VITALS (10 sets, daily range): BP systolic 111–160; BP diastolic 59–85; PULSE 67–102; RESP 15–20; TEMP 36.4–36.8; O2SAT 93–98; BMI 32.5; BMI 30.3
--- NOTE | 2022-01-11 11:41 | PC.NURSE ---
1140 ED MD AT BEDSIDE FOR EVALUATION
--- NOTE | 2022-01-11 11:42 | ECG_ITS ---
APPROVED REPORT Exam: Resting ECG HR:96 bpm ECG Measurements Heart Rate 96 AXES ND 141 P 55 QRSd 86 QRS 29 QT 335 T 3 QTc 389 Conclusion SINUS RHYTHM PROBABLE INFERIOR MYOCARDIAL INFARCTION , PROBABLY OLD [35 ms Q WAVE IN II/aVF] ABNORMAL ECG UNCONFIRMED REPORT Electronically signed by : Damon Valenzuela MD 01/12/2022 21:08:16
--- NOTE | 2022-01-11 11:43 | XR_ITS ---
FINAL REPORT TECHNIQUE: Chest PA & Lateral CLINICAL HISTORY: chest pain COMPARISON: October 2020 FINDINGS: 2 views of the chest were performed. The heart size is normal. The mediastinum is within normal limits. There is bibasilar atelectasis or scarring. There are no pleural effusions. There is no pneumothorax. A spinal stimulator is present. The bony thorax appears intact. IMPRESSION: Bibasilar atelectasis or scarring. Reviewed, Interpreted and Dictated by Carlos Manuel Moscoso III, MD Transcribed by Duc Gautam Authenticated and [facility]
--- NOTE | 2022-01-11 11:58 | HMH.EDGENADL ---
Discharge Plan Disposition Patient Disposition: Admitted As Inpatient Condition: Fair Chief Complaint: Chest Pain Clinical Impressions Clinical Impression: Chest pain Discharge ED Provider: Carrie Gomez Adult HPI General Chief complaint: Chest Pain Stated complaint: chest pain Time Seen by Provider: 01/11/22 11:43 Mode of Arrival: Ambulatory Source of Information: Patient Limitations: No Limitations Description of Symptoms (Recalled from ER Triage Doc. by RN): CHEST PAIN SINCE SUNDAY, CONTINED ALL WEEKEND. HAS TAKEN NITRO AND PAIN RESOLVED BUT RETURNS. PAIN IS SHARP LIKE STABBING. History of Present Illness HPI narrative: 56-year-old male presenting to the emergency department with chest pain. Pain started on Sunday, 5 days ago. Pain is located in the midportion of his chest. Feels like a stabbing, knifelike pain. He tried taking nitroglycerin with some relief. Has had multiple episodes of chest pain since then. Now is radiating toward his right arm. He has a history of coronary artery disease and stents x9. Has been taking all medications as prescribed. Denies recent exertional chest pain. Denies cough, difficulty breathing. No associated nausea or diaphoresis. No numbness, weakness, tingling in the extremities. Related Data Home Medications Medication Instructions Recorded Confirmed aspirin 81 mg tablet,delayed 81 mg PO DAILY HEART HEALTH 04/15/20 01/11/22 release lisinopril 5 mg tablet 5 mg PO DAILY Hypertension 04/15/20 01/11/22 rosuvastatin 40 mg tablet 40 mg PO HS Cholesterol 04/15/20 01/11/22 sertraline 100 mg tablet 100 mg PO DAILY Depression 04/15/20 01/11/22 isosorbide mononitrate 30 mg 30 mg PO DAILY Hypertension 08/17/20 01/11/22 tablet,extended release 24 hr metoprolol succinate 50 mg 25 mg PO DAILY Hypertension 06/01/21 01/11/22 tablet,extended release 24 hr aripiprazole 10 mg tablet (Abilify) 10 mg PO QHS BIPOLAR 01/11/22 01/11/22 dulaglutide 1.5 mg/0.5 mL 1.5 mg SQ WEEKLY Diabetes 01/11/22 01/11/22 subcutaneous pen injector ([facility]) insulin glargine U-300 conc 300 160 unit SQ BID Diabetes 01/11/22 01/11/22 unit/mL (3 mL) subcutaneous pen (Toujeo Max U-300 SoloStar) nitroglycerin 0.4 mg sublingual 0.4 mg sublingual NEEDED PRN 01/11/22 01/11/22 tablet Chest Pain Allergies Allergy/AdvReac Type Severity Reaction Status Date / Time codeine Allergy Unknown itching Verified 07/25/21 14:32 Iodinated Contrast Media Allergy Headache Verified 07/25/21 14:32 [facility] Medical History (Updated 01/11/22 @ 16:25 by Carrie Gomez DO) Abnormal EKG Angina pectoris CAD (coronary artery disease) Crescendo angina Aryan's syndrome Dyspnea Social History Smoking Status: Never smoker second hand exposure: No alcohol intake: never substance use type: denies use current occupational status: disabled Travel in the last 8 weeks: Inside the [place] household members: spouse housing: house number of children: 0 current occupational exposures/hazards: No caffeine: Yes ROS Obtained: Yes All systems reviewed & no additional complaints except as documented Constitutional Constitutional: Denies body ache, Denies chills, Denies fever(s) and Denies headache(s) ENT Ears, Nose, Mouth, and Throat: Denies dizziness, Denies headache(s), Denies neck pain and Denies sore throat Cardiovascular Cardiovascular: Reports chest pain and Denies dyspnea Respiratory Respiratory: Denies chest congestion, Denies cough and Denies dyspnea Gastrointestinal Gastrointestingal: Denies nausea or vomiting Musculoskeletal Musculoskeletal: Denies neck pain and Reports radiating pain into limb Neurologic Neurologic: Denies dizziness and Denies headache(s) Physical Exam General General appearance: alert and in no apparent distress Head Head exam: atraumatic and normocephalic Eye Eye exam: Present normal appearance; Absent conjunctival redness Chest Chest i
[2022-01-11 12:00] LABS: Basophils # 0.3 K/mm3 (0-0.2); Basophils % 2.4 % (0.1-2.0); Eosinophils # 0.2 K/mm3 (0.0-0.4); Eosinophils % 1.8 % (0.1-12.0); Hematocrit 46.2 % (42.0-52.0); Lymphocytes # 2.5 K/mm3 (0.7-4.5); Lymphocytes % 22.8 % (10-50); Mean Corpuscular HGB Conc 32.4 g/dL (31.8-35.4); Mean Corpuscular Hemoglobin 29.4 pg (27.0-31.2); Mean Corpuscular Volume 90.8 fl (80-94); Mean Platelet Volume 11.6 fl (7.4-10.4); Monocytes # 0.4 K/mm3 (0.1-1.0); Monocytes % 3.4 % (1.7-9.3); Neutrophils # 7.6 K/mm3 (1.8-7.8); Neutrophils % 69.6 % (37.0-80.0); Red Blood Count 5.09 M/mm3 (4.60-6.20)
--- NOTE | 2022-01-11 12:07 | PC.NURSE ---
PT MEDICATED PER EMAR, NO NEEDS AT THIS TIME
[2022-01-11 12:09] LABS: Chloride 93 mmol/L (98-107); Potassium 4.5 mmoL/L (3.5-5.1); Sodium 135 mmol/L (136-145)
[2022-01-11 12:10] LABS: Platelet Count 47 K/mm3 (142-424)
[2022-01-11 12:12] LABS: Anion Gap 18.5 mEq/L (5-15); Blood Urea Nitrogen 16 mg/dl (9-20); Carbon Dioxide 28 mmol/L (22.0-30.0); Creatinine Clearance Estimated 114 mL/min (50-200); Estimated Glomerular Filt Rate 77 ml/min (>60); GFR (African American) 93 ML/MIN (>60)
--- NOTE | 2022-01-11 12:12 | PC.NURSE ---
CRITICAL LAB VALUE OF PLATELETS 47, DR. WORTHY NOTIFIED. PT NAME AND R/V
[2022-01-11 12:13] LABS: Calcium 8.9 mg/dl (8.4-10.2); Glucose 323 mg/dl (74-100)
[2022-01-11 12:27] LABS: Troponin I < 0.01 ng/ml (0.00-0.034)
--- NOTE | 2022-01-11 12:29 | PC.NURSE ---
PT TO RADIOLOGY AT THIS TIME
--- NOTE | 2022-01-11 13:05 | CT_ITS ---
FINAL REPORT TECHNIQUE: Then section axial CT images of the chest were obtained without and with contrast. Three-D reformatted images were also obtained.This study was performed with techniques to keep radiation doses as low as reasonably achievable (ALARA). Individualized dose reduction techniques using automated exposure control or adjustment of mA and/or kV according to the patient''s size were employed. CLINICAL HISTORY: chest pain to back. FINDINGS: There is motion artifact. There is no evidence of pulmonary embolism. There is no evidence of thoracic aortic aneurysm or dissection. There are multiple mildly enlarged mediastinal and hilar lymph nodes. There are multiple pulmonary nodules measuring up to 8 mm in the right middle lobe. No localized inflammatory process is seen within the lungs. Limited images of the upper abdomen demonstrate fatty infiltration of the liver. A spinal stimulator is present. IMPRESSION: No evidence of pulmonary embolism. Multiple bilateral pulmonary nodules. Recommend six-month follow-up CT. Reviewed, Interpreted and Dictated by Carlos Manuel Moscoso III, MD Transcribed by Duc Gautam Authenticated and [facility]
--- NOTE | 2022-01-11 13:48 | PC.NURSE ---
PT TO CT AT THIS TIME
--- NOTE | 2022-01-11 14:06 | PC.NURSE ---
pt return from CT
--- NOTE | 2022-01-11 14:09 | PC.NURSE ---
PT RETURNED FROM CT
--- NOTE | 2022-01-11 15:39 | PC.NURSE ---
ED MD AT BEDSIDE TO UPDATE PT AND ON POC
--- NOTE | 2022-01-11 15:44 | PC.NURSE ---
open tenter operator paging dr. jurado, no answer at his office
--- NOTE | 2022-01-11 15:46 | PC.NURSE ---
contacted cardiology office to notify them of consult on pt and that pt is going to be admitted per ER MD request. Office staff states all providers have left for the day we would need to contact dr. amos. Notified ER MD, states she doesn't need to speak with anyone she was just wanting to notify cardiology staff that we are admitting pt, states she does not want me to page dr. amos.
--- NOTE | 2022-01-11 15:50 | PC.NURSE ---
LUIS SOLANO speaking with Dr. Valenzuela
[2022-01-11 15:53] LABS: Troponin I < 0.01 ng/ml (0.00-0.034)
--- NOTE | 2022-01-11 15:54 | PC.NURSE ---
notified care management of admission, spoke with jeet
[2022-01-11 16:06] LABS: Coronavirus 19, PCR Not Detected (NotDetected); Influenza A, PCR Not Detected (NotDetected); Influenza B, PCR Not Detected (NotDetected)
--- NOTE | 2022-01-11 17:19 | PC.NURSE ---
REPORT GIVEN TO Jasmeet SCHWARTZ RN
--- NOTE | 2022-01-11 17:26 | PC.NURSE ---
PT TO [facility] VIA WC AT THIS TIME
--- NOTE | 2022-01-11 17:30 | PC.NURSE ---
arrived to floor by wheelchair for ED
--- NOTE | 2022-01-11 17:46 | EXP.HP ---
History of Present Illness *Admission Date: 01/11/22 *Reason for visit:: Chest pain *History of present illness: 56-year-old white male with long history of extremely poorly controlled diabetes and significant hyperlipidemia, Aryan syndrome and severe coronary disease with multiple stents placed in the past who has had 5 days of increasing chest pain. Its not responded to nitroglycerin at home, he called the cardiology clinic who recommended coming to the ER. In the ER he was treated with morphine, his pain was still severe so a CT scan was done to rule out aortic dissection. This was unremarkable, troponins initially were unremarkable, but given his history he is admitted to hospital for further evaluation, serial troponins and cardiology consultation. [facility] Medical History (Updated 01/11/22 @ 17:49 by Damon Valenzuela MD) Abnormal EKG Angina pectoris CAD (coronary artery disease) Crescendo angina Aryan's syndrome Dyspnea Social History Smoking Status: Never smoker second hand exposure: No alcohol intake: never substance use type: denies use current occupational status: disabled Travel in the last 8 weeks: Inside the [place] household members: spouse housing: house number of children: 0 current occupational exposures/hazards: No caffeine: Yes Review of Systems Review of Systems Review of systems:: pertinent systems reviewed and negative unless documented below Review of systems (narrative): Reports chest pain with touching and with breathing and with activity. Reports that he has been feeling fatigued over the past 5 days. Otherwise review of systems negative for dyspnea or edema Constitutional Constitutional: Denies headache(s) ENT Ears, Nose, Mouth, and Throat: Denies dizziness and Denies headache(s) *Neurologic Neurologic: Denies dizziness and Denies headache(s) Meds Home Medications and Allergies Home Medications Medication Instructions Recorded Confirmed Type aspirin 81 mg tablet,delayed 81 mg PO DAILY HEART HEALTH 04/15/20 01/11/22 History release lisinopril 5 mg tablet 5 mg PO DAILY Hypertension 04/15/20 01/11/22 History rosuvastatin 40 mg tablet 40 mg PO HS Cholesterol 04/15/20 01/11/22 History sertraline 100 mg tablet 100 mg PO DAILY Depression 04/15/20 01/11/22 History isosorbide mononitrate 30 mg 30 mg PO DAILY Hypertension 08/17/20 01/11/22 History tablet,extended release 24 hr metoprolol succinate 50 mg 25 mg PO DAILY Hypertension 06/01/21 01/11/22 History tablet,extended release 24 hr aripiprazole 10 mg tablet (Abilify) 10 mg PO QHS BIPOLAR 01/11/22 01/11/22 History dulaglutide 1.5 mg/0.5 mL 1.5 mg SQ WEEKLY Diabetes 01/11/22 01/11/22 History subcutaneous pen injector (Trulicity) insulin glargine U-300 conc 300 160 unit SQ BID Diabetes 01/11/22 01/11/22 History unit/mL (3 mL) subcutaneous pen (Toujeo Max U-300 SoloStar) nitroglycerin 0.4 mg sublingual 0.4 mg sublingual NEEDED PRN 01/11/22 01/11/22 History tablet Chest Pain New Prescriptions to Start Prescriptions: Allergies Allergy/AdvReac Type Severity Reaction Status Date / Time codeine Allergy Unknown itching Verified 07/25/21 14:32 Iodinated Contrast Media Allergy Headache Verified 07/25/21 14:32 Exam Data for Last 24 hours Vital signs and Labs for Last 24 Hours: Temp Pulse Resp BP Pulse Ox 98.3 F 78 15 152/78 H 96 01/11/22 11:41 01/11/22 15:00 01/11/22 13:30 01/11/22 15:00 01/11/22 15:00 Laboratory Results - last 24 hr 01/11/22 11:50: WBC 11.0 H, RBC 5.09, Hgb 15.0, Hct 46.2, MCV 90.8, MCH 29.4, MCHC 32.4, RDW 14.0, Plt Count 47 L*, MPV 11.6 H, Neut % (Auto) 69.6, Lymph % (Auto) 22.8, [place] % (Auto) 3.4, Eos % (Auto) 1.8, Baso % (Auto) 2.4 H, Neut # (Auto) 7.6, Lymph # (Auto) 2.5, [place] # (Auto) 0.4, Eos # (Auto) 0.2, Baso # (Auto) 0.3 H 01/11/22 11:50: Sodium 135 L, Potassium 4.5, Chloride 93 L, Carbon Dioxide 28, Anion Gap 18.5 H, BUN 16,
[2022-01-11 18:57] LABS: Troponin I 0.02 ng/ml (0.00-0.034)
--- NOTE | 2022-01-11 19:08 | XR_ITS ---
PROCEDURE INFORMATION: Exam: XR Left Knee Exam date and time: 01/11/2022 7:38 PM Age: 56 years old Clinical indication: Pain; Knee; Left; Additional info: Knee pain TECHNIQUE: Imaging protocol: Radiologic exam of the Left knee. Views: 1 or 2 views. COMPARISON: No relevant prior studies available. FINDINGS: Bones/joints: Enthesophyte at the quadriceps and patellar tendon insertions. Mild medial joint space narrowing. No acute fracture or dislocation. Soft tissues: Normal. IMPRESSION: Chronic changes without acute process.
--- NOTE | 2022-01-11 20:40 | PC.NURSE ---
during initial pt assessment pt and expressed concerns that pt was still having CP. family also indicated that they had other requests while as an inpt as well. spoke with Dr Valenzuela at 1850 and the orders are as follows: xray of left knee r/t pain oxycodone 10mg q6hp moderate pain morphine 4mg iv q6hp for severe pain phenergan 25mg iv q6hp nausea achs fingersticks with high intensity sliding scale insulin
[2022-01-11 21:14] LABS: Glucose,Random 672 mg/dL (74-100)
--- NOTE | 2022-01-11 21:22 | PC.NURSE ---
Addendum entered by Rolanda Rosas RN 01/11/22 21:56: ordered to give 40 units sliding scale insulin, 120 units lantus. Original Note: recieved a call from lab stating critical glucose of 672. pt name nd verified. notified dr jurado, orders to give 4 units sliding scale insulin and 120 units lantus. also ordered to changed Rosuvastatin 40 mg to atorvastatin 40 mg.
[2022-01-11 23:37] LABS: POC Glucose,Bedside 532 (70-110)
[2022-01-12] VITALS (18 sets, daily range): BP systolic 93–143; BP diastolic 49–80; PULSE 66–89; RESP 16–19; TEMP 36.4–36.7; O2SAT 93–99; BMI 31.2
--- NOTE | 2022-01-12 | IR_ITS ---
APPROVED REPORT Patient Location: Inpatient Lithographed Plate Inspector: MONICA Guevara RT (R) PROCEDURES Left heart catheterization Left ventriculogram Selective coronary angiogram Drug-eluting stent deployment to the mid and distal LAD INDICATION Coronary artery disease, Unstable angina Informed consent was obtained prior to the procedure. COMPLICATIONS NONE Estimated Blood Loss: LESS THAN 10 ML TECHNIQUE One percent lidocaine used to anesthetize the right anterior aspect of the wrist. The right radial artery was accessed via the Seldinger technique. A 6 [place] sheath was placed in the right radial artery. 2.5 mg of verapamil, 800 mcg of nitroglycerin, 1mg Lidocaine and 5000 U Heparin were given through the arterial sheath. The papa catheter and 6 [place] JL 3 guide catheter were used to perform left heart catheterization, left ventriculogram and selective coronary angiogram. At the end of the diagnostic angiogram therapeutic heparin was administered giving a therapeutic ACT and the guide catheter was placed in the left main artery followed by a Choice PT extra-support wire placed distally in the LAD. A 2 mm x 30 mm resolute [place] stent was deployed at 16 kay[place] reducing the stenosis. A 2.25 x 12 mm noncompliant balloon was then placed back into the stent in the proximal segment. Interestingly that it was somewhat difficult advancing this into the proximal portion of the stent suggesting calcification and poor expansion with the initial inflation. The 2.25 mm balloon was deployed in the proximal and mid segment of the stent at 22 kayden providing excellent post dilatation. There was SAGE II flow at the beginning of the procedure with SAGE-3 flow at the end of the procedure. There appears to be a small wire perforation on the medial aspect of the last angiogram and the several proceeding angiograms which was small appear to be self-limiting. The end the procedure the apparatus was removed the sheath was removed and hemostasis was achieved using TR banding patient was transferred to the postop putting in stable condition ANGIOGRAPHIC RESULTS The left main artery Has mild 10% luminal regularities The left anterior descending artery Has an ostial 10 to 20% stenosis followed by a proximal to mid LAD stent which is widely patent free of in-stent restenosis in the proximal and mid segment of the stent with a mild 20 to 30% eccentric in-stent restenotic lesion distally. The midportion has a long diffuse 90 and 80% stenosis accompanied by SAGE II flow. First and second diagonal artery have ostial proximal 80% stenoses The circumflex artery Small nondominant and patent The right coronary artery Large dominant with a proximal to mid vessel stent which is widely patent however has 40% concentric in-stent restenosis in the midportion of the stent. Distally there are diffuse 20% stenoses with a 50% hazy stenosis in a large posterior descending artery The RAMIREZ ventriculogram reveals Preserved at 60% The left ventricular end-diastolic pressure 10 mmHg IMPRESSION Severe disease throughout the mid LAD accompanied by SAGE II flow which underwent percutaneous stentin which improved flow to SAGE-3 flow Preserved ejection fraction Persistent moderate stenosis in a large mid dominant right coronary artery and moderate to severe stenosis in the mid large posterior descending artery Normal left ventricular end-diastolic pressure PLAN 1. Echocardiogram will be obtained now and at 2 hours to monitor for possible pericardial effusion due to microscopic wire perforation 2. Dual antiplatelet therapy 3. Aggressive treatment of diabetes. 4. LDL less than 55 to be achieved with high intensity statin 5. Cardiac rehabilitat
[2022-01-12 05:18] LABS: POC Glucose,Bedside 351 (70-110)
[2022-01-12 07:23] LABS: Basophils # 0.2 K/mm3 (0-0.2); Basophils % 1.4 % (0.1-2.0); Eosinophils # 0.1 K/mm3 (0.0-0.4); Eosinophils % 0.8 % (0.1-12.0); Hematocrit 43.6 % (42.0-52.0); Lymphocytes # 1.8 K/mm3 (0.7-4.5); Lymphocytes % 11.6 % (10-50); Mean Corpuscular Hemoglobin 29.3 pg (27.0-31.2); Mean Corpuscular Volume 91.3 fl (80-94); Mean Platelet Volume 10.8 fl (7.4-10.4); Monocytes # 0.5 K/mm3 (0.1-1.0); Neutrophils # 12.8 K/mm3 (1.8-7.8); Neutrophils % 83.2 % (37.0-80.0); Platelet Count 61 K/mm3 (142-424); Red Blood Count 4.77 M/mm3 (4.60-6.20); Red Cell Distribution Width 13.7 % (11.5-17.5); White Blood Count 15.4 K/mm3 (4.8-10.8)
[2022-01-12 07:25] LABS: Chloride 94 mmol/L (98-107); MANUAL DIFFERENTIAL MANUAL DIFFERENTIAL (MANUAL DIFF); Sodium 133 mmol/L (136-145)
[2022-01-12 07:26] LABS: Potassium 4.9 mmoL/L (3.5-5.1)
[2022-01-12 07:28] LABS: Blood Urea Nitrogen 21 mg/dl (9-20); Creatinine Clearance Estimated 136 mL/min (50-200); Estimated Glomerular Filt Rate 99 ml/min (>60); GFR (African American) 120 ML/MIN (>60)
[2022-01-12 07:29] LABS: Anion Gap 17.9 mEq/L (5-15); Calcium 9.5 mg/dl (8.4-10.2); Carbon Dioxide 26 mmol/L (22.0-30.0); Glucose 318 mg/dl (74-100)
--- NOTE | 2022-01-12 07:50 | HMH.PHAINT1 ---
Pharmacy Intervention Comments: Home medication reconciliation completed using outpatient pharmacy fill history.
[2022-01-12 07:55] LABS: Lymphocytes % 15 % (10-50); Monocytes % 4 % (2-9); Neutrophils % 81 % (42-76); Platelet Estimate Moderate Decrease; RBC Morphology Normal; Total Cells Counted 100
--- NOTE | 2022-01-12 09:39 | EXP.ACUTE.PN ---
Subjective *Date: 01/12/22 *Time: 09:39 Interval history: Patient reported that he slept very well overnight. Had quite a bit of anterior chest pain. Notes that his oxycodone takes care of the pain for about 3 to 4 hours. Cardiology apparently prescribed the oxycodone at his last clinic visit with them. Of note patient has a pain pump and receives intrathecal morphine, but notes that his pain management physician will not prescribe him any more oral narcotics. He reports that his morphine dose in his pump was increased at his last visit but has not really helped the anterior chest pain much. Troponin levels through the night were negative. Patient's glucose levels have been high consistent with his abysmally controlled diabetes and he is received sliding scale insulin. We gave him his glargine dose last night. Cardiology consultation is pending. Medical Exam Vital signs and Labs for Last 24 Hours: Vital Signs Temp Pulse Pulse Resp BP BP Pulse Ox 01/12/22 08:00 97.8 F 88 16 125/80 96 01/12/22 04:00 80 01/12/22 00:00 80 01/11/22 20:00 70 01/12/22 04:00 97.6 F 69 18 137/60 94 L 01/12/22 00:00 97.5 F L 76 16 143/59 H 96 01/11/22 18:45 71 96 01/11/22 20:00 97.6 F 67 18 135/75 93 L 01/11/22 17:25 98.1 F 78 18 118/67 01/11/22 17:48 97.8 F 71 18 154/67 H 96 01/11/22 15:00 78 152/78 H 96 01/11/22 14:30 79 129/73 97 01/11/22 13:30 88 15 111/62 93 L 01/11/22 13:03 83 15 130/59 L 93 L 01/11/22 12:00 92 H 16 134/82 94 L 01/11/22 11:41 98.3 F 102 H 20 160/85 H 98 Intake and Output 01/11/22 01/12/22 01/12/22 19:59 03:59 11:59 Intake Total 480 / 480 Output Total Balance 480 / 479 - 479 Intake: Intake, Oral Amount 480 / 480 Output: Output, Urine Amount Other: Number of Unmeasured Voids 1 Weight 205 lb 6 oz 211 lb 1 oz Patient Weight 01/12/22 11:59 Weight 211 lb 1 oz Laboratory Results - last 24 hr 01/11/22 11:50: WBC 11.0 H, RBC 5.09, Hgb 15.0, Hct 46.2, MCV 90.8, MCH 29.4, MCHC 32.4, RDW 14.0, Plt Count 47 L*, MPV 11.6 H, Neut % (Auto) 69.6, Lymph % (Auto) 22.8, [place] % (Auto) 3.4, Eos % (Auto) 1.8, Baso % (Auto) 2.4 H, Neut # (Auto) 7.6, Lymph # (Auto) 2.5, [place] # (Auto) 0.4, Eos # (Auto) 0.2, Baso # (Auto) 0.3 H 01/11/22 11:50: Sodium 135 L, Potassium 4.5, Chloride 93 L, Carbon Dioxide 28, Anion Gap 18.5 H, BUN 16, Creatinine 1.00, Estimated Creat Clear 114, Estimated GFR 77, Est GFR ( Amer) 93, Glucose 323 H, Calcium 8.9, Troponin I < 0.01 01/11/22 15:20: Troponin I < 0.01 01/11/22 15:55: SARS-CoV-2 (PCR) Not detected, Influenza A Untype (PCR) Not detected, Influenza Type B (PCR) Not detected 01/11/22 18:15: Troponin I 0.02 01/11/22 20:29: Random Glucose 672 H* D 01/11/22 23:30: POC Glucose 532 H* 01/12/22 05:05: POC Glucose 351 H* 01/12/22 07:01: WBC 15.4 H D, RBC 4.77, Hgb 14.0 L, Hct 43.6, MCV 91.3, MCH 29.3, MCHC 32.0, RDW 13.7, Plt Count 61 L D, MPV 10.8 H, Neut % (Auto) 83.2 H, Lymph % (Auto) 11.6, Pet[place] % (Auto) 3.0, Eos % (Auto) 0.8, Baso % (Auto) 1.4, Neut # (Auto) 12.8 H, Lymph # (Auto) 1.8, [place] # (Auto) 0.5, Eos # (Auto) 0.1, Baso # (Auto) 0.2, Total Counted 100, Neutrophils % (Manual) 81 H, Lymphocytes % (Manual) 15, Monocytes % (Manual) 4, Platelet Estimate Moderate decrease, RBC Morphology Normal 01/12/22 07:01: Sodium 133 L, Potassium 4.9, Chloride 94 L, Carbon Dioxide 26, Anion Gap 17.9 H, BUN 21 H D, Creatinine 0.80, Estimated Creat Clear 136, Estimated GFR 99, Est GFR ( Amer) 120 D, Glucose 318 H, Calcium 9.5 I & O for Labs for Last 24 Hours: Intake & Output 01/09/22 01/10/22 01/11/22 01/12/22 11:59 11:59 11:59 11:59 Intake Total 480 / 480 Output Total Balance 479 / 479 Weight 220 lb 211 lb 1 oz Comment:: Patient is alert, focuses on his anterior chest pain. He appears to be in no distress and blood pr
--- NOTE | 2022-01-12 10:04 | CA_ITS ---
APPROVED REPORT EXAM: Comprehensive 2D, Doppler, and color-flow Echocardiogram Barn Hand: Deb Galvan, RCS, RVS Ht: 5 ft 9 in Wt: 207lbs BSA: 2.10 BP: 152/78 mmHg Indications: CAD, Aryan's syndrome, CP, RVE, Ex-smoker 2D Dimensions Aortic Root 3.02 cm LA Volume 61.80 mL Left Atrium 3.78 cm LA Volume Index 28.70 mL/m2 (M/F) 16-34 LVOT 1.83 cm (M/F) 1.5-2.5 M-Mode Dimensions RVDd 3.38 cm (0.9-2.6) LA Diam 4.12 cm (1.9-4.0) LVDd 4.95 cm (3.5-5.7) Ao Diam 2.95 cm (2.0-3.7) LVDs 2.98 cm (3.5-5.7) IVSd 1.05 cm (0.6-1.1) PWd 1.01 cm (0.6-1.1) EF (Teich) 70.20% EPSs 0.48 cm FS 39.80% EDV (Teich) 115.50 mL ESV (Teich) 34.40 mL LV Diastology E Decel Time 273.00 (160-240 msec) E/A Ratio 0.87 MED E' 6.00 (< 7 cm/sec) MED A' 11.20 cm/s E'/MED E' Ratio 9.22 (>14) LAT E' 10.80 (<10 cm/sec) LAT A' 11.70 cm/s E/LAT E' Ratio 5.12 (>14) Aortic Valve LVOT Max 112.00 (70-110 cm/s) LVOT VTI 24.43 cm AoV Peak Pankaj. 117.00 (50-130 cm/s) AO Peak GR. 5.50 mmHg AO Mean GR. 2.80 (<5 mmHg) AO VTI 20.67 (18-25 cm) BLAYNE (VTI) 3.11 (2.5-4.5 cm2) Mitral Valve MV A Velocity 64.00 (40-130 cm/s) E/A Ratio 0.87 MV Decel. Time 273.00 (160-240 ms) Pulmonary Valve PV Peak Velocity 94.00 (50-150 cm/s) NJ End VMAX 219.00 cm/s Tricuspid Valve TR P. Velocity 188.00 cm/s Left Ventricle Left atrium is mildly enlarged, left ventricle is normal size, mild concentric left ventricular hypertrophy, estimated ejection fraction 55% with no regional wall motion abnormality, grade 1 diastolic dysfunction seen without tissue Doppler evidence of raise left atrial pressure. Right Ventricle Right atrium and right ventricular mildly enlarged with normal contractility. Aortic Valve Aortic valve is minimally thickened and fibrosed there is no aortic stenosis or aortic insufficiency. Mitral Valve Mitral valve grossly normal, there is trace mitral regurgitation. Tricuspid Valve Tricuspid valve grossly normal, there is trace tricuspid regurgitation, tricuspid regurgitation jet velocity is inadequate for calculation of the right ventricular systolic Pulmonic Valve Pulmonic valve is poorly visualized Great Vessels Aortic root is normal size. Inferior vena cava is normal size with normal inspiratory collapse. Pericardium No significant pericardial effusion noted. Conclusion 1. Mild biatrial enlargement, normal left ventricular size, mild concentric left ventricular hypertrophy, estimated ejection fraction 55% with no regional wall motion abnormality, grade 1 diastolic dysfunction seen without tissue Doppler evidence of raise left atrial pressure. 2. Mildly enlarged right ventricle with normal contractility. 3. Trace mitral and tricuspid regurgitation. 4. No significant pericardial effusion noted. 5. Inferior vena cava is normal size with normal inspiratory collapse. Electronically signed by : Tony Resendiz MD 01/13/2022 12:58:26
--- NOTE | 2022-01-12 10:46 | EXP.CARD.CON ---
History of Present Illness History of Present Illness Consult date: 01/12/22 Requesting physician: Damon Valenzuela Consult reason: chest pain Chief complaint: chest pain History of present illness: This is a 56-year-old white gentleman who presented to the hospital with complaints of chest pain. The patient states that he has been having chest pain for the last 8 to 10 months but it significantly worsened last Sunday. He states that the chest pain is a constant, pressure, sharp and burning sensation. It radiates to the right arm, to his neck and to the lower aspect of his head. The patient states that this is a severe pain. It is worse with exertion. Nothing really helps to improve the pain but oxycodone. He states that he was given morphine in the emergency department which did not help his pain. The patient did have a STEMI in April 2021. He does have a high 1 year mortality risk status post STEMI. This morning he still is complaining of the constant chest pain. It is associated with shortness of breath, nausea and diaphoresis. He denies any fever, chills, vomiting, diarrhea, PND or orthopnea. He denies any lower extremity edema. 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 Family History (Updated 01/11/22 @ 21:14 by Sarai Talbert RN) Other Coronary artery disease Diabetes Social History (Updated 01/11/22 @ 21:15 by Sarai Talbert RN) Smoking Status: Never smoker second hand exposure: No alcohol intake: never substance use type: denies use current occupational status: disabled Travel in the last 8 weeks: Inside the [place] adopted: No caregiver/support person: No foster care: No household members: spouse housing: house marital status: number of children: 0 education level: vocational current occupational exposures/hazards: No caffeine: Yes Review of Systems Review of Systems Review of systems:: pertinent systems reviewed and negative unless documented below Constitutional Constitutional: Reports system reviewed and no additional complaints, except as documented Eyes Eyes: Reports system reviewed and no additional complaints, except as documented ENT Ears, Nose, Mouth, and Throat: Reports system reviewed and no additional complaints, except as documented *Cardiovascular Cardiovascular: Reports system reviewed and no additional complaints, except as documented *Respiratory Respiratory: Reports system reviewed and no additional complaints, except as documented *Gastrointestinal Gastrointestinal: Reports system reviewed and no additional complaints, except as documented *Genitourinary Genitourinary: Reports system reviewed and no additional complaints, except as documented *Musculoskeletal Musculoskeletal: Reports system reviewed and no additional complaints, except as documented Integumentary/Breasts Skin/Breast: Reports system reviewed and no additional complaints, except as documented Psychiatric Psychiatric: Reports system reviewed and no additional complaints, except as documented Endocrine Endocrine: Reports system reviewed and no additional complaints, except as documented Hematologic/Lymphatic Hematologic/Lymphatic: Reports system reviewed and no additional complaints, except as documented Allergic/Immunologic Allergic/Immunologic: Reports system reviewed and no additional complaints, except as documented Exam Data for Last 24 hours Vital signs and Labs for Last 24 Hours: Temp Pulse Resp BP Pulse Ox 97.8 F 88 16 125/80 96 01/12/22 08:00 01/12/22 08:00 01/12/22 08:00 01/12/22 08:00 01/12/22 08:00 Laboratory Results - last 24 hr 01/11/22 11:50: WBC 11.0 H, RBC 5.09, Hgb 15.0, Hct 46.2, M
--- NOTE | 2022-01-12 11:40 | PC.NURSE ---
Pt to dairy and food laboratory assistant at this time.
--- NOTE | 2022-01-12 12:46 | ECG_ITS ---
APPROVED REPORT Exam: Resting ECG HR:73 bpm ECG Measurements Heart Rate 73 AXES HI 162 P 32 QRSd 86 QRS -11 QT 368 T -22 QTc 394 Conclusion SINUS RHYTHM NORMAL ECG WARNING: DATA QUALITY MAY AFFECT INTERPRETATION UNCONFIRMED REPORT Electronically signed by : Damon Valenzuela MD 01/12/2022 21:05:48
--- NOTE | 2022-01-12 12:53 | CA_ITS ---
APPROVED REPORT EXAM: Comprehensive 2D, Doppler, and color-flow Echocardiogram [employer] Outside Sales Representative: Karla Arias RT(R) Ht: 5 ft 8 in Wt: 211lbs BSA: 2.09 BP: 000/00 mmHg Indications: post cath CP, limited echo to assess pericardial effusion Conclusion 1. Limited echocardiogram was obtained to evaluate for pericardial effusion. 2. No significant pericardial effusion. 3. Normal left ventricular size and function. Electronically signed by : Tony Resendiz MD 01/13/2022 12:54:36
[2022-01-12 12:56] LABS: CATHL Activated Clotting Time > 400 SEC (74-125)
--- NOTE | 2022-01-12 13:09 | SUR.PHASEII ---
pT BEING TRANSFERED TO STEPDOWN REPORT CALLED TO GEORGINA
--- NOTE | 2022-01-12 13:10 | PC.NURSE ---
report received from Stephen Shah RN. [facility]
--- NOTE | 2022-01-12 14:03 | PC.NURSE ---
Report given to Glen Liang RN.
--- NOTE | 2022-01-12 14:44 | CA_ITS ---
APPROVED REPORT EXAM: Comprehensive 2D, Doppler, and color-flow Echocardiogram Clin Tech: Karla Arias, RT(R) Ht: 5 ft 9 in Wt: 204lbs BSA: 2.08 BP: 116/73 mmHg Indications: 2 hours post cath reassess for effusion Conclusion 1. Limited echocardiogram obtained to evaluate for pericardial effusion. 2. No significant pericardial effusion noted, there is anterior echo-free space seen, there is normal left ventricular systolic function. Electronically signed by : Tony Resendiz MD 01/13/2022 12:52:48
[2022-01-12 16:46] LABS: POC Glucose,Bedside 421 (70-110)
[2022-01-12 20:16] LABS: POC Glucose,Bedside 514 (70-110)
--- NOTE | 2022-01-12 20:58 | PC.NURSE ---
2015 FSBS 514, stat glucose ordered, Dr. Valenzuela paged for orders, gave order for 60 units humalog, and 160 units of insulin glargine now
[2022-01-12 21:05] LABS: Glucose,Random 622 mg/dL (74-100)
--- NOTE | 2022-01-12 21:05 | PC.NURSE ---
lab called at this time to report critical glucose, Dr. Valenzuela was previously notified at 2015
[2022-01-13] VITALS (8 sets, daily range): BP systolic 110–135; BP diastolic 60–90; PULSE 67–83; RESP 16–20; TEMP 36.4–36.6; O2SAT 92–95; BMI 32.3
--- NOTE | 2022-01-13 04:50 | PC.NURSE ---
Addendum entered by Kirstin Sheppard RN 01/13/22 04:52: pt ambulating with standby assist to BR Original Note: pt has complained of chest pain t/o shift and has been treated with PRN medications, describes it as a dull ache, SBP 109-130, HR 67-76, remains on room air, right radial cath site with dressing in place, C/D/I, FS 514 at 2100 check, construction skills teacher notified, orders received and carried out
[2022-01-13 06:10] LABS: Basophils # 0.1 K/mm3 (0-0.2); Basophils % 0.4 % (0.1-2.0); Eosinophils # 0.1 K/mm3 (0.0-0.4); Eosinophils % 0.3 % (0.1-12.0); Hematocrit 38.8 % (42.0-52.0); Hemoglobin 12.8 g/dL (14.1-18.0); Lymphocytes # 3.1 K/mm3 (0.7-4.5); Lymphocytes % 16.1 % (10-50); Mean Corpuscular HGB Conc 32.9 g/dL (31.8-35.4); Mean Corpuscular Hemoglobin 29.8 pg (27.0-31.2); Mean Corpuscular Volume 90.8 fl (80-94); Mean Platelet Volume 9.6 fl (7.4-10.4); Monocytes % 4.9 % (1.7-9.3); Neutrophils # 15.1 K/mm3 (1.8-7.8); Neutrophils % 78.3 % (37.0-80.0); Platelet Count 125 K/mm3 (142-424); Red Blood Count 4.28 M/mm3 (4.60-6.20); Red Cell Distribution Width 13.8 % (11.5-17.5); White Blood Count 19.3 K/mm3 (4.8-10.8)
[2022-01-13 06:18] LABS: MANUAL DIFFERENTIAL MANUAL DIFFERENTIAL (MANUAL DIFF)
[2022-01-13 06:26] LABS: Chloride 97 mmol/L (98-107); Potassium 4.5 mmoL/L (3.5-5.1); Sodium 135 mmol/L (136-145)
[2022-01-13 06:28] LABS: Alanine Aminotransferase 35 U/L (12-78); Aspartate Amino Transferase 31 U/L (17-59); Blood Urea Nitrogen 30 mg/dl (9-20); Creatinine Clearance Estimated 113 mL/min (50-200); Estimated Glomerular Filt Rate 77 ml/min (>60); GFR (African American) 93 ML/MIN (>60)
[2022-01-13 06:29] LABS: Albumin Level 3.9 g/dl (3.5-5.0); Alkaline Phosphatase 112 U/L (38-126); Anion Gap 14.5 mEq/L (5-15); Calcium 9.2 mg/dl (8.4-10.2); Carbon Dioxide 28 mmol/L (22.0-30.0); Chol/HDL Ratio 6.1 (1-3.5); Cholesterol 188 mg/dl (140-200); Glucose 199 mg/dl (74-100); HDL Cholesterol 31 mg/dl (40-60); Total Protein,Serum 6.8 g/dl (6.3-8.2); Triglycerides 254 mg/dl (30-150); VLDL Cholesterol 51 mg/dL (0-40)
[2022-01-13 06:40] LABS: Direct LDL Cholesterol 107.63 mg/dL (100-129)
[2022-01-13 06:44] LABS: POC Glucose,Bedside 175 (70-110)
[2022-01-13 06:49] LABS: Bilirubin,Total < 0.1 mg/dl (0.2-1.3)
[2022-01-13 06:56] LABS: Bilirubin,Direct 0.1 mg/dl (0.0-0.4)
--- NOTE | 2022-01-13 08:13 | EXP.ACUTE.PN ---
Subjective *Date: 01/13/22 *Time: 08:13 Interval history: Patient underwent left heart catheterization with stent placement yesterday. I have reviewed the procedure note and plan. Patient continues to have fairly intractable 7-8/10 chest pain, he got up and took a walk this morning which made the pain worse. The pain is relieved by 10 mg of oxycodone every 3 hours along with morphine and he has his pain pump in place. He is also receiving some Phenergan for nausea. His glucose levels over the past 24 hours of been over 300 but have been treated with sliding scale insulin and we have reinstituted his home glargine dosing as he is eating now. He is able to keep food and fluids down and has been alert. Number He remains on a nitro drip-has a little bit of a headache-but is able to eat and drink and is normal in regards to pulse rate and blood pressure. Medical Exam Vital signs and Labs for Last 24 Hours: Vital Signs Temp Pulse Pulse Resp BP Pulse Ox 01/13/22 06:00 83 20 119/67 92 L 01/13/22 04:00 70 01/13/22 04:00 67 01/13/22 04:00 67 20 127/76 95 01/13/22 03:51 97.6 F 01/13/22 02:00 67 18 110/60 94 L 01/13/22 00:00 70 01/12/22 20:00 80 01/13/22 00:00 74 18 113/65 93 L 01/12/22 22:00 74 19 120/68 93 L 01/13/22 00:00 97.9 F 01/12/22 20:00 75 01/12/22 20:00 75 18 109/49 L 93 L 01/12/22 20:00 98.0 F 01/12/22 19:00 76 16 130/78 97 01/12/22 18:00 74 16 128/60 97 01/12/22 17:00 76 16 126/60 98 01/12/22 16:00 74 16 135/63 99 01/12/22 16:00 70 01/12/22 15:38 98.0 F 01/12/22 15:30 69 19 116/72 94 L 01/12/22 15:00 66 18 116/73 93 L 01/12/22 14:30 76 18 93/61 L 94 L 01/12/22 14:00 89 16 133/71 93 L 01/12/22 13:45 83 19 113/71 93 L 01/12/22 13:30 84 18 132/62 95 01/12/22 13:15 72 18 114/74 95 01/12/22 12:44 16 Intake and Output 01/12/22 01/13/22 01/13/22 19:59 03:59 11:59 Intake Total 480 / 480 Output Total 200 / 200 0 / 200 Balance 280 / 280 0 / 280 Intake: Intake, Oral Amount 480 / 480 Output: Output, Urine Amount 200 / 200 0 / 200 Other: Number of Unmeasured Voids 1 1 Weight 218 lb 4 oz Patient Weight 01/13/22 11:59 Weight 218 lb 4 oz Laboratory Results - last 24 hr 01/12/22 12:18: Activated Clotting Time > 400 H* 01/12/22 16:38: POC Glucose 421 H* 01/12/22 20:08: POC Glucose 514 H* 01/12/22 20:44: Random Glucose 622 H* 01/13/22 05:51: WBC 19.3 H D, RBC 4.28 L, Hgb 12.8 L, Hct 38.8 L, MCV 90.8, MCH 29.8, MCHC 32.9, RDW 13.8, Plt Count 125 L D, MPV 9.6, Neut % (Auto) 78.3, Lymph % (Auto) 16.1, Vernon % (Auto) 4.9, Eos % (Auto) 0.3, Baso % (Auto) 0.4, Neut # (Auto) 15.1 H, Lymph # (Auto) 3.1, Vernon # (Auto) 1.0, Eos # (Auto) 0.1, Baso # (Auto) 0.1 01/13/22 05:51: Sodium 135 L, Potassium 4.5, Chloride 97 L, Carbon Dioxide 28, Anion Gap 14.5, BUN 30 H D, Creatinine 1.00 D, Estimated Creat Clear 113, Estimated GFR 77, Est GFR ( Amer) 93 D, Glucose 199 H D, Calcium 9.2, Total Bilirubin < 0.1 L, Direct Bilirubin 0.1, Conjugated Bilirubin 0.0, Indirect Bilirubin 0.0, Unconjugated Bilirubin 0.0, AST 31, ALT 35, Alkaline Phosphatase 112, Total Protein 6.8, Albumin 3.9, Triglycerides 254 H, Cholesterol 188, LDL Cholesterol Direct 107.63, VLDL Cholesterol 51 H, HDL Cholesterol 31 L, Cholesterol/HDL Ratio 6.1 H 01/13/22 06:32: POC Glucose 175 H I & O for Labs for Last 24 Hours: Intake & Output 01/10/22 01/11/22 01/12/22 01/13/22 11:59 11:59 11:59 11:59 Intake Total 480 / 480 480 / 480 Output Total 301 / 301 200 / 200 Balance 179 / 179 280 / 280 Weight 220 lb 211 lb 1 oz 218 lb 4 oz Constitutional: Present no acute distress Respiratory: Present normal respiratory effort Cardiac: Present Reg Rate and Rhythm GI: Present normal bowel sounds; Absent tenderness Extremities: Present normal i
[2022-01-13 09:57] LABS: Lymphocytes % 23 % (10-50); Monocytes % 1 % (2-9); Neutrophils % 76 % (42-76); Platelet Estimate Normal; RBC Morphology Normal; Total Cells Counted 100
--- NOTE | 2022-01-13 10:18 | PC.NURSE ---
courtesy tech round: pt is sitting up in bed and was provided with some coffee per request
--- NOTE | 2022-01-13 10:31 | EXP.CARD.PN ---
Subjective Subjective Date: 01/13/22 Time: 10:00 Principal diagnosis: CAD Interval history: This is a 56-year-old white gentleman who presented to the hospital with complaints of chest pain. The patient underwent left cardiac catheterization yesterday for unstable angina. The patient had stenting to the LAD with persistent moderate stenosis in the mid right coronary artery. The patient will be on aspirin and Plavix for dual antiplatelet therapy. This morning he states that his chest pain came back around 430 this morning. He states that this is a constant pressure and sharp sensation. He states its radiating to his right arm and causing numbness. He states that he feels very nauseated and does not feel well. He states that his chest pain is a severe 10 out of 10 pain. He states nothing is helping his pain except for the oxycodone. He states that he also feels diaphoretic. He denies any fever, chills, nausea, vomiting, diarrhea, PND or orthopnea. Exam Data for Last 24 hours Vital signs and Labs for Last 24 Hours: Temp Pulse Resp BP Pulse Ox 97.7 F 69 16 131/83 94 L 01/13/22 08:00 01/13/22 10:00 01/13/22 10:00 01/13/22 10:00 01/13/22 10:00 Laboratory Results - last 24 hr 01/12/22 12:18: Activated Clotting Time > 400 H* 01/12/22 16:38: POC Glucose 421 H* 01/12/22 20:08: POC Glucose 514 H* 01/12/22 20:44: Random Glucose 622 H* 01/13/22 05:51: WBC 19.3 H D, RBC 4.28 L, Hgb 12.8 L, Hct 38.8 L, MCV 90.8, MCH 29.8, MCHC 32.9, RDW 13.8, Plt Count 125 L D, MPV 9.6, Neut % (Auto) 78.3, Lymph % (Auto) 16.1, Crane % (Auto) 4.9, Eos % (Auto) 0.3, Baso % (Auto) 0.4, Neut # (Auto) 15.1 H, Lymph # (Auto) 3.1, Crane # (Auto) 1.0, Eos # (Auto) 0.1, Baso # (Auto) 0.1, Total Counted 100, Neutrophils % (Manual) 76, Lymphocytes % (Manual) 23, Monocytes % (Manual) 1 L, Platelet Estimate Normal, RBC Morphology Normal 01/13/22 05:51: Sodium 135 L, Potassium 4.5, Chloride 97 L, Carbon Dioxide 28, Anion Gap 14.5, BUN 30 H D, Creatinine 1.00 D, Estimated Creat Clear 113, Estimated GFR 77, Est GFR ( Amer) 93 D, Glucose 199 H D, Calcium 9.2, Total Bilirubin < 0.1 L, Direct Bilirubin 0.1, Conjugated Bilirubin 0.0, Indirect Bilirubin 0.0, Unconjugated Bilirubin 0.0, AST 31, ALT 35, Alkaline Phosphatase 112, Total Protein 6.8, Albumin 3.9, Triglycerides 254 H, Cholesterol 188, LDL Cholesterol Direct 107.63, VLDL Cholesterol 51 H, HDL Cholesterol 31 L, Cholesterol/HDL Ratio 6.1 H 01/13/22 06:32: POC Glucose 175 H I & O for Last 24 hours: Intake & Output 01/10/22 01/11/22 01/12/22 01/13/22 23:59 23:59 23:59 23:59 Intake Total 480 / 480 480 / 480 480 / 480 Output Total 501 / 501 400 / 400 Balance 480 / 480 - / 80 / 80 Weight 205 lb 6 oz 211 lb 1 oz 218 lb 4 oz Constitutional Constitutional: no acute distress and obese *Routine HEENT Exam Head: Present normocephalic and atraumatic ENT: Present mucous membranes moist *Routine Neck Exam Neck: Present supple, full ROM and normal carotid upstroke; Absent JVD, carotid bruit or lymphadenopathy *Routine Respiratory Exam Respiratory: Present CTA bilaterally, normal respiratory effort, able to speak in complete sentences and symmetric chest movement *Routine Cardiovascular Exam Cardiovascular: Present RRR, Normal S1 and Normal S2; Absent murmur or gallop *Routine Abdominal Exam Abdominal: Present soft and normoactive bowel sounds; Absent tenderness, distended or organomegaly *Routine Extremities Exam Extremities: Present full ROM, pulses intact and normal capillary refill; Absent cyanosis, clubbing or edema *Routine Skin Exam Skin: Present intact and warm; Absent erythema *Routine Neurological Exam Neurological: Present alert, oriented X3 and CN II-XII intact; Absent sensory deficit or motor deficit Routine Psychiatric Exam Psychiatric: Present normal affect Progress Note: A&P Assessment and plan (1) Unstable angina: Status: Acute (2) CAD (coronary artery disease): Status:
--- NOTE | 2022-01-13 11:09 | ECG_ITS ---
APPROVED REPORT Exam: Resting ECG HR:73 bpm ECG Measurements Heart Rate 73 AXES MA 151 P 42 QRSd 86 QRS 1 QT 367 T -29 QTc 392 Conclusion SINUS RHYTHM MODERATE T-WAVE ABNORMALITY, CONSIDER INFERIOR ISCHEMIA [-0.1+ mV T-WAVE IN II/aVF] ABNORMAL ECG UNCONFIRMED REPORT Electronically signed by : Damon Valenzuela MD 01/15/2022 21:21:18
--- NOTE | 2022-01-13 12:10 | PC.NURSE ---
Dr. Bess and José Wheeler APRN @ [facility] updating pt and (by phone). Nitro gtt turned OFF at this time per Dr. Bess.
--- NOTE | 2022-01-13 12:39 | EXP.DC.SUM ---
General Admission date:: 01/11/22 Discharge date: 01/13/22 HPI HPI HPI: 56-year-old white male with long history of extremely poorly controlled diabetes and significant hyperlipidemia, Aryan syndrome and severe coronary disease with multiple stents placed in the past who has had 5 days of increasing chest pain. Its not responded to nitroglycerin at home, he called the cardiology clinic who recommended coming to the ER. In the ER he was treated with morphine, his pain was still severe so a CT scan was done to rule out aortic dissection. This was unremarkable, troponins initially were unremarkable, but given his history he is admitted to hospital for further evaluation, serial troponins and cardiology consultation. Hospital Course Hospital Course Hospital Course: Patient was admitted to hospital, given his clinical presentation and history he was taken to the heart slab grinder the day after admission and a stent was placed. Please see cardiovascular notes for details. He was watched overnight on a nitro drip because of ongoing pain and cardiology continued Percocet which they have prescribed before for his ongoing chest pain. He felt much better otherwise, was able to walk around with very minimal increasing chest pain. He wished to go home today and after cardiology evaluation they recommended increased Ranexa dosing, increase nitro dosing and Percocet prescription. Please see my notes from today regarding the challenging nature of his narcotic prescriptions. Patient will be discharged home. Follow-up with cardiology as scheduled. They have provided prescriptions for medication changes for patient. He will continue his diabetic regimen I will follow him as scheduled for his diabetes. Exam Data for Last 24 hours Vital signs and Labs for Last 24 Hours: Temp Pulse Resp BP Pulse Ox 97.7 F 73 16 135/80 95 01/13/22 08:00 01/13/22 12:00 01/13/22 12:00 01/13/22 12:00 01/13/22 12:00 Laboratory Results - last 24 hr 01/12/22 12:18: Activated Clotting Time > 400 H* 01/12/22 16:38: POC Glucose 421 H* 01/12/22 20:08: POC Glucose 514 H* 01/12/22 20:44: Random Glucose 622 H* 01/13/22 05:51: WBC 19.3 H D, RBC 4.28 L, Hgb 12.8 L, Hct 38.8 L, MCV 90.8, MCH 29.8, MCHC 32.9, RDW 13.8, Plt Count 125 L D, MPV 9.6, Neut % (Auto) 78.3, Lymph % (Auto) 16.1, Sabine % (Auto) 4.9, Eos % (Auto) 0.3, Baso % (Auto) 0.4, Neut # (Auto) 15.1 H, Lymph # (Auto) 3.1, Sabine # (Auto) 1.0, Eos # (Auto) 0.1, Baso # (Auto) 0.1, Total Counted 100, Neutrophils % (Manual) 76, Lymphocytes % (Manual) 23, Monocytes % (Manual) 1 L, Platelet Estimate Normal, RBC Morphology Normal 01/13/22 05:51: Sodium 135 L, Potassium 4.5, Chloride 97 L, Carbon Dioxide 28, Anion Gap 14.5, BUN 30 H D, Creatinine 1.00 D, Estimated Creat Clear 113, Estimated GFR 77, Est GFR ( Amer) 93 D, Glucose 199 H D, Calcium 9.2, Total Bilirubin < 0.1 L, Direct Bilirubin 0.1, Conjugated Bilirubin 0.0, Indirect Bilirubin 0.0, Unconjugated Bilirubin 0.0, AST 31, ALT 35, Alkaline Phosphatase 112, Total Protein 6.8, Albumin 3.9, Triglycerides 254 H, Cholesterol 188, LDL Cholesterol Direct 107.63, VLDL Cholesterol 51 H, HDL Cholesterol 31 L, Cholesterol/HDL Ratio 6.1 H 01/13/22 06:32: POC Glucose 175 H I & O for Last 24 hours: Intake & Output 01/11/22 01/12/22 01/13/22 01/14/22 11:59 11:59 11:59 11:59 Intake Total 480 / 480 960 / 960 Output Total 301 / 301 1200 / 1200 Balance 179 / 179 -240 / -240 Weight 220 lb 211 lb 1 oz 218 lb 4 oz Constitutional Constitutional: no acute distress *Routine HEENT Exam Head: Present normocephalic Eye: Present EOMI and PERRL ENT: Present mucous membranes moist *Routine Neck Exam Neck: Present supple; Absent lymphadenopathy *Routine Respiratory Exam Respiratory: Present CTA bilaterally *Routine Cardiovascular Exam Cardiovascular: Present RRR *Routine Abdominal Exam Abdominal: Present soft and normoactive bowel sounds; Absent tenderness *Routine
[2022-01-13 17:22] LABS: POC Glucose,Bedside 165 (70-110)
--- NOTE | 2022-01-16 13:58 | CARE MANAGER ---
Spoke with patient's regarding hospital discharge. She states patient has been mostly in the bed and he still has some pain where they went in through the wrist for his heart cath. They did spanish moss picker his new medications and are checking his blood sugars regularly. Deny any questions or concerns at this time. AUGUSTO Schwarz
== END 2022-01-13 15:15 | disposition home or self-care (01) | DRG 247 ==
LOC: ER 12:03 → 2ND 16:25
PROVIDERS: Internal Medicine; Nurse Practitioner Family; Admitting Provider Internal Medicine Adolescent Medicine; Emergency Provider Emergency Medicine; PCP Internal Medicine Adolescent Medicine; Visit Provider Internal Medicine Adolescent Medicine
PROC: 027034Z Dilation of Coronary Artery, One Artery with Drug-eluting Intraluminal Device, Percutaneous Approach (ICD-10-PCS; principal; 2022-01-12 11:40)
DX: I25.110 Atherosclerotic heart disease of native coronary artery with unstable angina pectoris (principal); I24.1 Dressler's syndrome; T82.855A Stenosis of coronary artery stent, initial encounter; I10 Essential (primary) hypertension; E11.65 Type 2 diabetes mellitus with hyperglycemia; Z79.4 Long term (current) use of insulin; F41.1 Generalized anxiety disorder; F39 Unspecified mood [affective] disorder; E78.5 Hyperlipidemia, unspecified; Z79.899 Other long term (current) drug therapy; Y83.1 Surgical operation with implant of artificial internal device as the cause of abnormal reaction of the patient, or of later complication, without mention of misadventure at the time of the procedure
CPT/HCPCS: 36415; 71046; 71275; 73560; 80048; 80061; 80076; 82947; 82962; 84484; 85007; 85025; 85347; 92928; 93005; 93306; 93308; 93458; 99152; 99153; 99285; C1725; C1769; C1876; C9600; C9803; J1644; J2405; Q9967; U0003; U0005

== ENCOUNTER 2022-09-13 13:28 | Inpatient (IN) | payer BC, MEDICARE, SELFPAY ==
[2022-09-13] VITALS (13 sets, daily range): BP systolic 123–155; BP diastolic 62–82; PULSE 74–115; RESP 16–20; TEMP 36.5–36.7; O2SAT 94–99; BMI 29.5; BMI 29.2
--- NOTE | 2022-09-13 13:27 | ECG_ITS ---
APPROVED REPORT Exam: Resting ECG HR:115 bpm ECG Measurements Heart Rate 115 AXES WV 154 P 74 QRSd 84 QRS 62 QT 317 T 10 QTc 385 Conclusion SINUS TACHYCARDIA INFERIOR MYOCARDIAL INFARCTION , OLD ABNORMAL ECG UNCONFIRMED REPORT Electronically signed by : Damon Valenzuela MD 09/14/2022 09:49:06
--- NOTE | 2022-09-13 13:40 | PC.NURSE ---
Checked [facility]; Reading was high on glucometer. Labs sent up and called lab to let them know
--- NOTE | 2022-09-13 13:42 | XR_ITS ---
FINAL REPORT CLINICAL HISTORY: chest pain FINDINGS: SINGLE VIEW CHEST The heart size is normal. The mediastinum is normal. There is mild atelectasis at the right lung base. There is no pneumothorax. IMPRESSION: Mild atelectasis at the right lung base. Reviewed, Interpreted and Dictated by Carlos Manuel Moscoso III, MD Transcribed by Savannah Kenyon Authenticated and [facility]
[2022-09-13 13:57] LABS: Alanine Aminotransferase 40 U/L (12-78); Albumin Level 4.6 g/dl (3.5-5.0); Albumin/Globulin Ratio 1.4 (1.1-1.8); Alkaline Phosphatase 160 U/L (38-126); Aspartate Amino Transferase 42 U/L (17-59); Bilirubin,Total 0.8 mg/dl (0.2-1.3); Blood Urea Nitrogen 25 mg/dl (9-20); Calcium 9.4 mg/dl (8.4-10.2); Carbon Dioxide 20 mmol/L (22.0-30.0); Chloride 90 mmol/L (98-107); Creatinine Clearance Estimated 103 mL/min (50-200); Estimated Glomerular Filt Rate 77 ml/min (>60); GFR (African American) 93 ML/MIN (>60); Globulin 3.3 g/dL (1.3-3.2); Sodium 127 mmol/L (136-145); Total Protein,Serum 7.9 g/dl (6.3-8.2)
[2022-09-13 14:00] LABS: Basophils # 0.1 K/mm3 (0-0.2); Basophils % 0.8 % (0.1-2.0); Eosinophils # 0.1 K/mm3 (0.0-0.4); Eosinophils % 0.8 % (0.1-12.0); Hematocrit 47.4 % (42.0-52.0); Hemoglobin 14.7 g/dL (14.1-18.0); Lymphocytes # 2.9 K/mm3 (0.7-4.5); Lymphocytes % 33.4 % (10-50); Mean Corpuscular Hemoglobin 27.4 pg (27.0-31.2); Mean Corpuscular Volume 88.5 fl (80-94); Mean Platelet Volume 11.7 fl (7.4-10.4); Monocytes # 0.3 K/mm3 (0.1-1.0); Monocytes % 3.7 % (1.7-9.3); Neutrophils # 5.4 K/mm3 (1.8-7.8); Neutrophils % 61.4 % (37.0-80.0); Red Blood Count 5.35 M/mm3 (4.60-6.20); Red Cell Distribution Width 14.7 % (11.5-17.5); White Blood Count 8.8 K/mm3 (4.8-10.8)
--- NOTE | 2022-09-13 14:07 | HMH.EDGENADL ---
Discharge Plan Disposition Patient Disposition: Admitted Prescriptions Prescriptions: No Action metoprolol succinate [Toprol XL] 100 mg tablet extended release 24 hr 100 mg PO DAILY Qty: 90 3RF oxycodone-acetaminophen [Percocet] 10-325 mg tablet 1 tab PO Q8H PRN (Reason: pain) Qty: 15 0RF atorvastatin [Lipitor] 40 mg tablet 40 mg PO HS Qty: 90 3RF ranolazine [Ranexa] 1,000 mg tablet extended release 12 hr 1,000 mg PO BID Qty: 180 3RF lisinopril 5 MG tablet 5 mg PO DAILY sertraline 100 MG tablet 100 mg PO DAILY aspirin 81 MG tablet,delayed release (DR/EC) 81 mg PO DAILY nitroglycerin 0.4 mg tablet, sublingual 0.4 mg sublingual NEEDED PRN (Reason: Chest Pain) aripiprazole [Abilify] 10 mg tablet 10 mg PO QHS Trulicity 1.5 mg/0.5 mL pen injector 1.5 mg SQ WEEKLY Toujeo Max U-300 SoloStar 300 unit/mL (3 mL) insulin pen 160 unit SQ BID Label Comments: INJECT 160 UNITS SUBCUTANEOUSLY TWICE DAILY trazodone 50 mg tablet 50 mg PO HS pantoprazole 40 mg tablet,delayed release (DR/EC) 40 mg PO DAILY clopidogrel [Plavix] 75 mg tablet 75 mg PO DAILY Qty: 30 0RF isosorbide mononitrate 120 mg tablet extended release 24 hr 120 mg PO DAILY Qty: 30 0RF Referrals Follow up/Referrals: Damon Valenzuela MD [Primary Care Provider] - See instructions Clinical Impressions Clinical Impression: Chest pain, Hyperglycemia Discharge ED Provider: Saturnino Waller General Adult HPI General Chief complaint: Chest Pain Stated complaint: CP Time Seen by Provider: 09/13/22 14:01 Mode of Arrival: Ambulatory Source of Information: Patient Limitations: No Limitations Description of Symptoms (Recalled from ER Triage Doc. by RN): Presents to ED with complaints of left sided chest pain and headache that started 30 minutes ago. PAtient further reports N/D and weakness x 1 week. Hx of 5 heart attacks and 11 stents. Patient follows for Cardiology. Patient had an appointment today at 1400. History of Present Illness HPI narrative: Patient is a 56-year-old male with a known history of coronary disease had multiple MIs and heart cath in the past most recently 1 [address] Bess presenting today with chest pain. He also states that he has headache and bilateral arm pain. States that his arm pain was ongoing all day long and his chest pain began about 1 hour ago around the same time this headache began. States that these are all similar symptoms he had the past with his anginal symptoms. Denies any exertional component any shortness of breath any nausea associate with this. He has had aspirin earlier in the day. Related Data Home Medications Medication Instructions Recorded Confirmed aspirin 81 mg tablet,delayed 81 mg PO DAILY HEART HEALTH 04/15/20 05/08/22 release lisinopril 5 mg tablet 5 mg PO DAILY Hypertension 04/15/20 05/08/22 sertraline 100 mg tablet 100 mg PO DAILY Depression 04/15/20 05/08/22 aripiprazole 10 mg tablet (Abilify) 10 mg PO QHS bipolar 01/11/22 05/08/22 dulaglutide 1.5 mg/0.5 mL 1.5 mg SQ WEEKLY Diabetes 01/11/22 05/08/22 subcutaneous pen injector (Trulicity) insulin glargine U-300 conc 300 160 unit SQ BID Diabetes 01/11/22 05/08/22 unit/mL (3 mL) subcutaneous pen (Toujeo Max U-300 SoloStar) nitroglycerin 0.4 mg sublingual 0.4 mg sublingual NEEDED PRN 01/11/22 05/08/22 tablet Chest Pain pantoprazole 40 mg tablet,delayed 40 mg PO DAILY acid reflux 01/12/22 05/08/22 release trazodone 50 mg tablet 50 mg PO HS sleep 01/12/22 05/08/22 Previous Rx's Medication Instructions Recorded clopidogrel 75 mg tablet (Plavix) 75 mg PO DAILY #30 tabs 01/13/22 isosorbide mononitrate 120 mg 120 mg PO DAILY #30 tabs 01/13/22 tablet,extended release 24 hr oxycodone-acetaminophen 10 mg-325 1 tab PO Q8H PRN pain #15 tabs 02/08/22 mg tablet (Percocet) atorvastatin 40 mg tablet (Lipitor) 40 mg PO HS #9
[2022-09-13 14:09] LABS: Glucose 731 mg/dl (74-100)
[2022-09-13 14:10] LABS: Platelet Count 18 K/mm3 (142-424); Troponin I < 0.01 ng/ml (0.00-0.034)
--- NOTE | 2022-09-13 14:10 | PC.NURSE ---
Addendum entered by Ludivina Hurley RN 09/13/22 14:12: Critical labs: Glucose 731 and Platelet 18 Original Note: Critical labs given to
[2022-09-13 14:20] LABS: D-Dimer 0.59 ug/mL (0.0-0.5)
[2022-09-13 14:32] LABS: VBG Base Excess -6.7 mmol/L (-2.4-2.3); VBG HCO3 19.6 mmol/L (23-30); VBG Oxygen Saturation 77.1 % (50-70); VBG PCO2 40.2 mmol/L (35-51); VBG PH 7.31 mmol/L (7.31-7.41); VBG PO2 43.9 mmol/L (28-40); VBG Total CO2 20.8 mmol/L (23-27)
--- NOTE | 2022-09-13 15:16 | PC.NURSE ---
CHECKED ON PT, HE ASKED WHY NO ONE NOTIFIED DR. SALCEDO ABOUT HIM BEING IN THE ED STATED HIS CALLED TO CANCEL HIS NEHEMIAS WITH DENISSE TODAY @2 AND ALSO LET THEM KNOW HE WAS IN THE ED AND HE WAS FRUSTRATED AND WANTED TO SEE ... SPOKE WITH CHARGE NURSE AND EMMA TO LET THEM KNOW PT COMPLAINT
--- NOTE | 2022-09-13 15:31 | PC.NURSE ---
Spoke with pt about his concern that had not been to his room yet, states that the prior 3 times he has been here, bette office has been contacted and he can came right over and taken him to the chemical laboratory chief. States that he knows how this works and he should've already seen Bette. Explained to pt that the ER doctor access and evaluated his test results and will consult as needed at that time. Pt states he knows he has blockages and needs to see Bette. Discussed with pt that I will consult with the ER doctor about the plan at this time. Pt is understanding at this time.
[2022-09-13 15:44] LABS: Coronavirus 19, PCR Not Detected (NotDetected); Influenza A, PCR Not Detected (NotDetected); Influenza B, PCR Not Detected (NotDetected)
--- NOTE | 2022-09-13 15:59 | PC.NURSE ---
Cardiology has been called
--- NOTE | 2022-09-13 16:00 | PC.NURSE ---
MD notified of 1L of LR are finished V/O for another 1L of LR per MD
--- NOTE | 2022-09-13 16:13 | PC.NURSE ---
Updated on plan of care. Patient upset with care provided. Charge nurse notified.
--- NOTE | 2022-09-13 16:15 | PC.NURSE ---
on the phone with
--- NOTE | 2022-09-13 16:26 | PC.NURSE ---
notified of patient's pain. No new orders at this time
[2022-09-13 16:28] LABS: Hemoglobin A1C > 14.0 % (4.0-6.0)
--- NOTE | 2022-09-13 16:32 | PC.NURSE ---
[employer] @ [facility]
--- NOTE | 2022-09-13 17:00 | PC.NURSE ---
Rounded on patient call ruiz within reach of patient.
--- NOTE | 2022-09-13 17:05 | PC.NURSE ---
Attempted to call report; will call back
[2022-09-13 17:22] LABS: Troponin I < 0.01 ng/ml (0.00-0.034)
--- NOTE | 2022-09-13 17:52 | PC.NURSE ---
arrived by w/c from ED
--- NOTE | 2022-09-13 18:41 | PC.NURSE ---
NOTIFIED DR ARGUETA OF CRITICAL GLUCOSE OF 547; INSTRUCTED TO GIVE 25 UNITS HUMALOG
[2022-09-13 18:43] LABS: POC Glucose,Bedside 547 (70-110)
[2022-09-13 19:17] LABS: Glucose,Random 511 mg/dL (74-100)
[2022-09-13 19:49] LABS: Troponin I < 0.01 ng/ml (0.00-0.034)
--- NOTE | 2022-09-13 20:02 | EXP.HP ---
History of Present Illness *Admission Date: 09/13/22 *Reason for visit:: chest pain *History of present illness: 56 year old male presents to ED for c/o chest pain that started today @ 1 P.M. PMHX of CAD, HLD, HTN, DM, chronic lower back pain, and mood disorder. Pt states chest pain occurred while driving to doctor's appointment. States pain is worse with movement. Chest pain is associated w/ nausea, SOA, and diarrhea. at bedside and states pt has been weak for 5 weeks. He has been unable to do his normal activities. Upon exam patient appears in no distress. Pt's ED work up of CP revealed no troponin elevation, EKG without stemi or ongoing ischemia, an elevated glucose of 731 and an Gap of 22. ED physician spoke with Dr. Dillard and the patient was medically admitted for further medical management and cardiac consult. [facility] Disclaimer: The information contained in this section may have been updated after the patient was seen, as this information can be updated by other users. 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 Surgical History History of cardiac cath Family History Other Coronary artery disease Diabetes Social History Smoking Status: Never smoker second hand exposure: No alcohol intake: never substance use type: denies use current occupational status: disabled Travel in the last 8 weeks: Inside the [facility] adopted: No caregiver/support person: No foster care: No household members: spouse housing: house marital status: number of children: 0 education level: vocational current occupational exposures/hazards: No caffeine: Yes Review of Systems Review of Systems Review of systems:: pertinent systems reviewed and negative unless documented below Constitutional Constitutional: Reports lethargy and Reports weakness Eyes Eyes: Reports system reviewed and no additional complaints, except as documented ENT Ears, Nose, Mouth, and Throat: Reports system reviewed and no additional complaints, except as documented *Cardiovascular Cardiovascular: Reports chest pain, Reports chest pain at rest and Reports chest pain with activity *Respiratory Respiratory: Reports system reviewed and no additional complaints, except as documented *Gastrointestinal Gastrointestinal: Reports system reviewed and no additional complaints, except as documented *Genitourinary Genitourinary: Reports system reviewed and no additional complaints, except as documented *Musculoskeletal Musculoskeletal: Reports back pain (chronic ) *Neurologic Neurologic: Reports system reviewed and no additional complaints, except as documented and Reports weakness Meds Home Medications and Allergies Home Medications Medication Instructions Recorded Confirmed Type aspirin 81 mg tablet,delayed 81 mg PO DAILY heart health 04/15/20 09/13/22 History release lisinopril 5 mg tablet 5 mg PO DAILY Hypertension 04/15/20 09/13/22 History sertraline 100 mg tablet 100 mg PO DAILY Depression 04/15/20 09/13/22 History dulaglutide 1.5 mg/0.5 mL 1.5 mg SQ WEEKLY Diabetes 01/11/22 09/14/22 History subcutaneous pen injector (Trulicity) insulin glargine U-300 conc 300 160 unit SQ BID Diabetes 01/11/22 09/14/22 History unit/mL (3 mL) subcutaneous pen (Toujeo Max U-300 SoloStar) nitroglycerin 0.4 mg sublingual 0.4 mg sublingual NEEDED PRN 01/11/22 09/13/22 History tablet Chest Pain pantoprazole 40 mg tablet,delayed 40 mg PO BID acid reflux 01/12/22 09/14/22 History release trazodone 50 mg tablet 50 mg PO HS
[2022-09-13 21:14] LABS: POC Glucose,Bedside 368 (70-110)
[2022-09-13 23:39] LABS: POC Glucose,Bedside 319 (70-110)
[2022-09-14] VITALS (10 sets, daily range): BP systolic 93–134; BP diastolic 41–63; PULSE 64–81; RESP 17–18; TEMP 36.6–37.1; O2SAT 93–98; BMI 29.5
[2022-09-14 00:25] LABS: Anion Gap 15.8 mEq/L (5-15); Blood Urea Nitrogen 21 mg/dl (9-20); Calcium 8.7 mg/dl (8.4-10.2); Carbon Dioxide 25 mmol/L (22.0-30.0); Chloride 98 mmol/L (98-107); Creatinine Clearance Estimated 102 mL/min (50-200); Estimated Glomerular Filt Rate 77 ml/min (>60); GFR (African American) 93 ML/MIN (>60); Glucose 306 mg/dl (74-100); Potassium 3.8 mmoL/L (3.5-5.1); Sodium 135 mmol/L (136-145)
--- NOTE | 2022-09-14 01:53 | PC.NURSE ---
PATIENT MEDICATED AT 2121 WITH MORPHINE 2 MG IVP FOR PAIN 5-6 ON PAIN SCALE. REPORTS HAS A MORPHINE PAIN PUMP WHICH DOES NOT CONTROL HIS PAIN. PAIN IS IN ARMS/LEGS/CHEST. SLEEPS AT SHORT INTERNALS. ALSO SAYS HE HAS A SPINE STIMULATOR. HAS BEEN NPO SINCE ID ORDERED FOR CARDIOLOGY CONSULT.
[2022-09-14 07:08] LABS: Eosinophils % 16.1 % (0.1-12.0); Hematocrit 41.2 % (42.0-52.0); Lymphocytes % 6.4 % (10-50); Mean Corpuscular HGB Conc 32.1 g/dL (31.8-35.4); Mean Corpuscular Volume 87.3 fl (80-94); Mean Platelet Volume 13.7 fl (7.4-10.4); Monocytes % 3.2 % (1.7-9.3); Neutrophils % 74.2 % (37.0-80.0); Red Blood Count 4.72 M/mm3 (4.60-6.20); Red Cell Distribution Width 14.8 % (11.5-17.5); White Blood Count 7.1 K/mm3 (4.8-10.8)
[2022-09-14 07:10] LABS: Hemoglobin 13.2 g/dL (14.1-18.0); Platelet Count 26 K/mm3 (142-424)
--- NOTE | 2022-09-14 07:11 | PC.NURSE ---
critical lab platelets 26 reported to hospitalist [id number].
[2022-09-14 07:19] LABS: Chloride 100 mmol/L (98-107); Sodium 132 mmol/L (136-145)
[2022-09-14 07:20] LABS: Potassium 3.8 mmoL/L (3.5-5.1)
[2022-09-14 07:22] LABS: Alanine Aminotransferase 32 U/L (12-78); Anion Gap 12.8 mEq/L (5-15); Aspartate Amino Transferase 37 U/L (17-59); Blood Urea Nitrogen 23 mg/dl (9-20); Carbon Dioxide 23 mmol/L (22.0-30.0); Creatinine Clearance Estimated 115 mL/min (50-200); Estimated Glomerular Filt Rate 87 ml/min (>60); GFR (African American) 105 ML/MIN (>60)
[2022-09-14 07:23] LABS: Albumin Level 3.5 g/dl (3.5-5.0); Alkaline Phosphatase 115 U/L (38-126); Bilirubin,Total 0.2 mg/dl (0.2-1.3); Calcium 8.6 mg/dl (8.4-10.2); Glucose 359 mg/dl (74-100); Magnesium 1.6 mg/dl (1.6-2.3)
[2022-09-14 07:26] LABS: Albumin/Globulin Ratio 1.3 (1.1-1.8); Globulin 2.8 g/dL (1.3-3.2); Total Protein,Serum 6.3 g/dl (6.3-8.2)
--- NOTE | 2022-09-14 09:45 | EXP.CARD.CON ---
History of Present Illness History of Present Illness Consult date: 09/14/22 Requesting physician: Claudio Dillard Consult reason: chest pain Chief complaint: chest pain History of present illness: 56-year-old white male with past medical history of coronary artery disease, hypertension, hyperlipidemia, uncontrolled diabetes mellitus type 2, and mood disorder presented to emergency department yesterday with complaints of chest pain and headache. Patient reports not feeling well the last few weeks with generalized weakness, nausea and diarrhea. Upon presentation to ER ekg showed sinus tach with a rate with a rate of 115 without acute ischemic changes noted. Labs as follow: WBC 8.8, hemoglobin 14.7, platelet count 18, d-dimer 0.59, sodium 127, potassium 5.0, anion gap 22, creatinine 1, Hemoglobin A1c >14, serial trops negative. VBG ph 7.31, HCO3 19.6. Chest xray showed mild atelectasis at the right lung base. Patient was admitted for hyperglycemia/early onset dka and chest pain. This morning patient is complaining of generalized body pain and wanting to eat. Reports chest pain worse with movement, denies soa. [facility] Disclaimer: The information contained in this section may have been updated after the patient was seen, as this information can be updated by other users. 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 Surgical History History of cardiac cath Family History Other Coronary artery disease Diabetes Social History Smoking Status: Never smoker second hand exposure: No alcohol intake: never substance use type: denies use current occupational status: disabled Travel in the last 8 weeks: Inside the [place] adopted: No caregiver/support person: No foster care: No household members: spouse housing: house marital status: number of children: 0 education level: vocational current occupational exposures/hazards: No caffeine: Yes Review of Systems Constitutional Constitutional: Reports body ache(s), Reports headache(s) and Reports weakness ENT Ears, Nose, Mouth, and Throat: Reports headache(s) *Cardiovascular Cardiovascular: Reports chest pain and Reports dyspnea *Respiratory Respiratory: Reports dyspnea *Musculoskeletal Musculoskeletal: Reports myalgias *Neurologic Neurologic: Reports system reviewed and no additional complaints, except as documented, Reports headache(s) and Reports weakness Exam Data for Last 24 hours Vital signs and Labs for Last 24 Hours: Temp Pulse Resp BP Pulse Ox 98.0 F 73 17 125/57 L 97 09/14/22 07:53 09/14/22 07:53 09/14/22 07:53 09/14/22 07:53 09/14/22 07:53 Laboratory Results - last 24 hr 09/13/22 13:34: WBC 8.8, RBC 5.35, Hgb 14.7, Hct 47.4, MCV 88.5, MCH 27.4, MCHC 31.0 L, RDW 14.7, Plt Count 18 L*, MPV 11.7 H, Neut % (Auto) 61.4, Lymph % (Auto) 33.4, [place] % (Auto) 3.7, Eos % (Auto) 0.8, Baso % (Auto) 0.8, Neut # (Auto) 5.4, Lymph # (Auto) 2.9, [place] # (Auto) 0.3, Eos # (Auto) 0.1, Baso # (Auto) 0.1, D-Dimer 0.59 H, Sodium 127 L, Potassium 5.0, Chloride 90 L, Carbon Dioxide 20 L, Anion Gap 22.0 H, BUN 25 H, Creatinine 1.00, Estimated Creat Clear 103, Estimated GFR 77, Est GFR ( Amer) 93, Glucose 731 H*, Hemoglobin A1c > 14.0 H, Calcium 9.4, Total Bilirubin 0.8, AST 42, ALT 40, Alkaline Phosphatase 160 H, Troponin I < 0.01, Total Protein 7.9, Albumin 4.6, Globulin 3.3 H, Albumin/Globulin Ratio 1.4 09/13/22 14:11: VBG pH 7.31, VBG pCO2 40.2, VBG pO2 43.9 H, VBG HCO3 19.6 L, VBG Total CO2 20.8 L, VBG O2 Saturation 77.1 H, VBG Base Excess -6.7 L
[2022-09-14 10:29] LABS: POC Glucose,Bedside 294 (70-110)
--- NOTE | 2022-09-14 10:36 | PC.NURSE ---
COURTESY TECH NOTE; ROUNDED ON PT 0840, PT DENIED NEED FOR DRINK, ASSISTANCE WITH RESTROOM, AND NEED TO REPOSITION IN BED. CALL LIGHT WITHIN REACH, NO FURTHER REQUESTS AT THIS TIME SHAILESH POTTS
--- NOTE | 2022-09-14 10:49 | HMH.PHAINT1 ---
Pharmacy Intervention Comments: Patient's home medications reviewed and verified with patient's and external pharmacy. -Bandar Sarkar, Pharm Student
[2022-09-14 17:10] LABS: POC Glucose,Bedside 282 (70-110)
--- NOTE | 2022-09-14 18:38 | EXP.ACUTE.PN ---
Subjective *Date: 09/14/22 *Time: 16:16 Interval history: Patient still having chest pain. Reproducible on exam. No shortness of breath, confusion, headache. No changes on telemetry. No nausea or vomiting. Stable on room air. Blood sugar doing better this morning. Medical Exam Vital signs and Labs for Last 24 Hours: Vital Signs Temp Pulse Pulse Resp BP Pulse Ox 09/14/22 16:00 71 09/14/22 15:22 98.8 F 69 17 93/42 L 96 09/14/22 12:00 79 09/14/22 08:00 75 09/14/22 11:47 98.4 F 64 17 119/55 L 93 L 09/14/22 08:00 98 09/14/22 07:53 98.0 F 73 17 125/57 L 97 09/14/22 03:38 71 09/14/22 03:35 97.9 F 81 18 134/63 96 09/14/22 00:00 79 09/13/22 23:55 98.1 F 81 20 123/70 97 09/13/22 20:00 94 L 09/13/22 20:00 89 09/13/22 20:00 98.0 F 85 18 147/67 H 94 L Intake and Output 09/14/22 09/14/22 09/14/22 07:59 15:59 23:59 Intake Total 240 / 720 480 / 720 Output Total 500 / 950 450 / 950 Balance -500 / -230 -210 / -230 480 / -230 Intake: Intake, Oral Amount 240 / 720 480 / 720 Output: Output, Urine Amount 500 / 950 450 / 950 Other: Number of Unmeasured Voids 1 Weight 90.537 kg 90.5 kg Patient Weight 09/14/22 23:59 Weight 90.5 kg Laboratory Results - last 24 hr 09/13/22 18:33: POC Glucose 547 H* 09/13/22 18:53: Random Glucose 511 H*, Troponin I < 0.01 09/13/22 21:08: POC Glucose 368 H* 09/13/22 23:33: POC Glucose 319 H* 09/14/22 00:13: Sodium 135 L, Potassium 3.8 D, Chloride 98, Carbon Dioxide 25, Anion Gap 15.8 H, BUN 21 H, Creatinine 1.00, Estimated Creat Clear 102, Estimated GFR 77, Est GFR ( Amer) 93, Glucose 306 H D, Calcium 8.7 09/14/22 06:37: WBC 7.1, RBC 4.72, Hgb 13.2 L D, Hct 41.2 L, MCV 87.3, MCH 28.0, MCHC 32.1, RDW 14.8, Plt Count 26 L* D, MPV 13.7 H, Neut % (Auto) 74.2, Lymph % (Auto) 6.4 L, [place] % (Auto) 3.2, Eos % (Auto) 16.1 H, Baso % (Auto) 0.0 L, Neut # (Auto) 0.0 L*, Lymph # (Auto) 0.0 L, [place] # (Auto) 0.0 L, Eos # (Auto) 0.0, Baso # (Auto) 0.0, Sodium 132 L, Potassium 3.8, Chloride 100, Carbon Dioxide 23, Anion Gap 12.8, BUN 23 H, Creatinine 0.90, Estimated Creat Clear 115, Estimated GFR 87, Est GFR ( Amer) 105, Glucose 359 H, Calcium 8.6, Magnesium 1.6, Total Bilirubin 0.2, AST 37, ALT 32, Alkaline Phosphatase 115, Total Protein 6.3, Albumin 3.5 D, Globulin 2.8, Albumin/Globulin Ratio 1.3 09/14/22 10:20: POC Glucose 294 H 09/14/22 17:03: POC Glucose 282 H I & O for Labs for Last 24 Hours: Intake & Output 09/11/22 09/12/22 09/13/22 09/14/22 23:59 23:59 23:59 23:59 Intake Total 1146 / 1146 720 / 720 Output Total 0 / 0 950 / 950 Balance 1146 / 1146 -230 / -230 Weight 89.811 kg 90.5 kg Constitutional: Present no acute distress, average body habitus and chronically ill appearing Head: Present atraumatic and normocephalic ENT: Present normal exam Neck: Present normal inspection Respiratory: Present normal respiratory effort; Absent rhonchi, wheezes or crackles Cardiac: Present Reg Rate and Rhythm Comment:: chest pain on exam with palpation of parasternum GI: Present normal bowel sounds; Absent tenderness Extremities: Present normal inspection and full ROM Skin: Present intact; Absent erythema Neuro: Present Grossly Intact, alert, awake, oriented x 3 and moves all extremities Assessment and Plan *Assessment and plan (1) DKA (diabetic ketoacidosis): Status: Acute Category: Medical Code(s): E11.10 - Type 2 diabetes mellitus with ketoacidosis without coma (2) Chest pain: Status: Acute Category: Medical Code(s): R07.9 - Chest pain, unspecified (3) CAD (coronary artery disease): Status: Chronic Qualifiers: Coronary Disease-Associated Artery/Lesion type: hoh artery [place] vs. transplanted heart: hoh heart Associated angina: with other forms of angina Qualified Code(s): I25.118 - Atherosclerotic hear
[2022-09-14 19:56] LABS: POC Glucose,Bedside 277 (70-110)
--- NOTE | 2022-09-14 21:43 | PC.NURSE ---
patient c/o chronic chest pain, bilat arm pain and H/A dispite percocet 10 mg and morphine 2 mg ivp. requests to see the N.P. on duty. says his pain is worse now than ever before. N.P notified.
[2022-09-15] VITALS (7 sets, daily range): BP systolic 100–117; BP diastolic 47–78; PULSE 65–90; RESP 18; TEMP 36.5–36.7; O2SAT 91–98; BMI 30.2
--- NOTE | 2022-09-15 00:58 | PC.NURSE ---
spoke with HALLEY Strange patient's pain which seems to be unresponsive to everything given (percocet 10mg. morphine 2 mg, tylenol). to order toradol iv.
--- NOTE | 2022-09-15 05:28 | PC.NURSE ---
PATIENT HAS REQUIRED SEVERAL PAIN MEDS THROUGH THE NIGHT. HE INSISTS THAT NOTHING HELPS. HAS BEEN AWAKE MOST OF THE NIGHT. NAPPED AT SHORT INTERVALS. C/O H/A, CHEST OAIN, BILAT ARM PAIN.
[2022-09-15 05:51] LABS: POC Glucose,Bedside 203 (70-110)
[2022-09-15 06:22] LABS: Chloride 100 mmol/L (98-107); Sodium 134 mmol/L (136-145)
[2022-09-15 06:23] LABS: Potassium 4.2 mmoL/L (3.5-5.1)
[2022-09-15 06:25] LABS: Alanine Aminotransferase 33 U/L (12-78); Albumin Level 3.4 g/dl (3.5-5.0); Albumin/Globulin Ratio 1.2 (1.1-1.8); Alkaline Phosphatase 94 U/L (38-126); Anion Gap 13.2 mEq/L (5-15); Aspartate Amino Transferase 38 U/L (17-59); Bilirubin,Total 0.2 mg/dl (0.2-1.3); Blood Urea Nitrogen 26 mg/dl (9-20); Calcium 8.7 mg/dl (8.4-10.2); Carbon Dioxide 25 mmol/L (22.0-30.0); Creatinine Clearance Estimated 88 mL/min (50-200); Estimated Glomerular Filt Rate 62 ml/min (>60); GFR (African American) 75 ML/MIN (>60); Globulin 2.8 g/dL (1.3-3.2); Glucose 211 mg/dl (74-100); Total Protein,Serum 6.2 g/dl (6.3-8.2)
[2022-09-15 06:26] LABS: Magnesium 1.7 mg/dl (1.6-2.3)
[2022-09-15 06:41] LABS: Basophils % 0.4 % (0.1-2.0); Eosinophils # 0.3 K/mm3 (0.0-0.4); Eosinophils % 3.8 % (0.1-12.0); Hematocrit 37.6 % (42.0-52.0); Hemoglobin 12.3 g/dL (14.1-18.0); Lymphocytes # 2.3 K/mm3 (0.7-4.5); Lymphocytes % 26.5 % (10-50); Mean Corpuscular HGB Conc 32.7 g/dL (31.8-35.4); Mean Corpuscular Hemoglobin 27.8 pg (27.0-31.2); Mean Corpuscular Volume 85.1 fl (80-94); Mean Platelet Volume 13.3 fl (7.4-10.4); Monocytes # 0.4 K/mm3 (0.1-1.0); Monocytes % 4.7 % (1.7-9.3); Neutrophils # 5.6 K/mm3 (1.8-7.8); Neutrophils % 64.5 % (37.0-80.0); Red Blood Count 4.41 M/mm3 (4.60-6.20); White Blood Count 8.3 K/mm3 (4.8-10.8)
[2022-09-15 07:10] LABS: Platelet Count 13 K/mm3 (142-424)
--- NOTE | 2022-09-15 09:08 | PC.NURSE ---
COURTESY TECH NOTE; ROUNDED ON PT 0800, PT DENIED NEED FOR ASSISTANCE WITH RESTROOM, AND NEED TO REPOSITION IN BED. COFFEE BROUGHT AT PT REQUEST, CALL LIGHT WITHIN REACH, NO FURTHER REQUESTS AT THIS TIME Nia ARREOLA, SHAILESH
[2022-09-15 10:31] LABS: POC Glucose,Bedside 316 (70-110)
--- NOTE | 2022-09-15 12:03 | EXP.DC.SUM ---
General Admission date:: 09/13/22 Discharge date: 09/15/22 HPI HPI HPI: 56 year old male presents to ED for c/o chest pain that started today @ 1 P.M. PMHX of CAD, HLD, HTN, DM, chronic lower back pain, and mood disorder. Pt states chest pain occurred while driving to doctor's appointment. States pain is worse with movement. Chest pain is associated w/ nausea, SOA, and diarrhea. at bedside and states pt has been weak for 5 weeks. He has been unable to do his normal activities. Upon exam patient appears in no distress. Pt's ED work up of CP revealed no troponin elevation, EKG without stemi or ongoing ischemia, an elevated glucose of 731 and an Gap of 22. ED physician spoke with Dr. Dillard and the patient was medically admitted for further medical management and cardiac consult. Hospital Course Hospital Course Hospital Course: 56 year old male presents to ED for c/o chest pain. Found to be in DKA. Cardiology consulted for chest pain given significant cardiac history and numerous heart cath with approximately 11 stents. Evaluated by cardiology during admission. Recommend medical management. Given negative troponin and EKG with no ischemic changes, recommend outpatient ischemic work-up. Stable for discharge home. Problems addressed as follows: CHEST PAIN CAD HTN - Reproducible on exam. Cardiology recommends stress testing as an outpatient. No plan for intervention at this time. EKG reviewed, no ischemic changes. Troponins x3 undetectable. Recommend continuing lisinopril 5 mg daily, isosorbide 125 mg daily, metoprolol 50 mg daily, and aspirin 81 mg daily. DKA -Presented with severely elevated glucose of 731, gap of 22. Low bicarb. Clinically consistent with DKA. Initiated on subcu corrections. Transition to glargine during hospitalization given his basal insulin was not on her formulary. Gradually increased basal to 110 twice daily. Showed improved control with mealtime insulin. A1c obtained during admission greater than 14. Insulin regimen at discharge as follows. Transition back to [place] at discharge. 110 units twice daily. Initiate mealtime insulin with lispro, 14 units with meals 3 times a day. Strongly recommended he log his blood sugars and insulin administration until he follows with his PCP to make further adjustments. Resume Trulicity at discharge. Improved glucose control during hospitalization. RASH -c/o rash located under left arm for 2-3 months -Nystatin cream ordered BID MOOD DISORDER -hx of anxiety and depression. continue home abilify 10 mg daily and sertraline 100 mg daily CHRONIC LOWER BACK PAIN -Lower back pain and bilateral lower extermitiy pain since 2012. Pain pump and spinal cord stimulator in place w/ adequate relief. Provided 3-day short course of p.o. opiates to assist with pain control. Recommend further discussion with PCP. Suspect pain is multifactorial. Related to musculoskeletal pain, hyperalgesia from chronic opiate therapy, nerve pain from cervical source, and in the setting of DKA. Stable for discharge home. Further management as an outpatient. Follow-up with cardiology and PCP in the next 1 to 2 weeks Exam Data for Last 24 hours Vital signs and Labs for Last 24 Hours: Temp Pulse Resp BP Pulse Ox 97.7 F 68 18 101/61 L 98 09/15/22 11:44 09/15/22 11:44 09/15/22 11:44 09/15/22 11:44 09/15/22 11:44 Laboratory Results - last 24 hr 09/14/22 17:03: POC Glucose 282 H 09/14/22 19:49: POC Glucose 277 H 09/15/22 05:40: POC Glucose 203 H 09/15/22 06:02: WBC 8.3, RBC 4.41 L, Hgb 12.3 L, Hct 37.6 L, MCV 85.1, MCH 27.8, MCHC 32.7, RDW 15.0, Plt Count 13 L* D, MPV 13.3 H, Neut % (Auto) 64.5, Lymph % (Auto) 26.5, [place] % (Auto) 4.7, Eos % (Auto) 3.8, Baso % (Auto) 0.4, Neut # (Auto) 5.6, Lymph # (Auto) 2.3, [place] # (Auto) 0.4, Eos # (Auto) 0.3, Baso # (Auto) 0.0, Sodium 134 L, Potassium 4.2, Chloride 100, Carbon Dioxide 25, Anion Gap 13.2, BUN 26 H, Creatinine 1.20 D, Est
--- NOTE | 2022-09-15 12:50 | PC.NURSE ---
PT AND MADE AWARE OF DISCHARGE. PT IS ONLY METHOD OF TRANSPORTATION BUT IS WORKING TODAY IN [place] AND WILL NOT BE ABLE TO PICK PT UP UNTIL THIS AFTERNOON.
[2022-09-15 12:56] LABS: POC Glucose,Bedside 314 (70-110)
[2022-09-15 16:59] LABS: POC Glucose,Bedside 183 (70-110)
[2022-09-16 19:08] LABS: Peripheral Smear Review Scanned Result
--- NOTE | 2022-09-19 10:36 | CARE MANAGER ---
Unable to reach patient to discuss recent discharge. Attempted call x 2 and left VM for him to return call.
== END 2022-09-15 18:07 | disposition home or self-care (01) | DRG 639 ==
LOC: ER 16:07 → 2ND 16:57
PROVIDERS: Nurse Practitioner Critical Care Medicine; Admitting Provider Internal Medicine Adolescent Medicine; Emergency Provider Student in an Organized Health Care Education/Training Program; PCP Internal Medicine Adolescent Medicine; Visit Provider Internal Medicine Adolescent Medicine
DX: E11.10 Type 2 diabetes mellitus with ketoacidosis without coma (principal); I25.2 Old myocardial infarction; I25.10 Atherosclerotic heart disease of native coronary artery without angina pectoris; I10 Essential (primary) hypertension; E78.5 Hyperlipidemia, unspecified; F39 Unspecified mood [affective] disorder; D69.6 Thrombocytopenia, unspecified; R07.89 Other chest pain; G89.29 Other chronic pain; R21 Rash and other nonspecific skin eruption; M54.50 Low back pain, unspecified
CPT/HCPCS: 36415; 71045; 80048; 80053; 82803; 82947; 82962; 83036; 83735; 84484; 85025; 85378; 87636; 93005; 99285; C9803; U0003; U0005

== ENCOUNTER → 2022-10-05 10:30 | Outpatient (CLI) | payer BC, MEDICARE, SELFPAY ==
[2022-10-05 12:05] LABS: Anion Gap 14.9 mEq/L (5-15); Blood Urea Nitrogen 24 mg/dl (9-20); Calcium 9.6 mg/dl (8.4-10.2); Carbon Dioxide 27 mmol/L (22.0-30.0); Chloride 98 mmol/L (98-107); Estimated Glomerular Filt Rate 76 ml/min (>60); GFR (African American) 93 ML/MIN (>60); Potassium 5.9 mmoL/L (3.5-5.1); Sodium 134 mmol/L (136-145)
[2022-10-05 12:57] LABS: Glucose 440 mg/dl (74-100)
[2022-10-05 16:22] LABS: Basophils % 0.4 % (0.1-2.0); Eosinophils # 0.3 K/mm3 (0.0-0.4); Eosinophils % 3.6 % (0.1-12.0); Hematocrit 41.3 % (42.0-52.0); Lymphocytes # 2.3 K/mm3 (0.7-4.5); Lymphocytes % 30.8 % (10-50); Mean Corpuscular HGB Conc 31.4 g/dL (31.8-35.4); Mean Corpuscular Hemoglobin 28.2 pg (27.0-31.2); Mean Corpuscular Volume 89.9 fl (80-94); Mean Platelet Volume 10.3 fl (7.4-10.4); Monocytes # 0.4 K/mm3 (0.1-1.0); Monocytes % 5.6 % (1.7-9.3); Neutrophils # 4.4 K/mm3 (1.8-7.8); Neutrophils % 59.6 % (37.0-80.0); Red Blood Count 4.59 M/mm3 (4.60-6.20); Red Cell Distribution Width 14.7 % (11.5-17.5); White Blood Count 7.3 K/mm3 (4.8-10.8)
[2022-10-05 16:49] LABS: Platelet Count 40 K/mm3 (142-424)
== END ==
LOC: LAB 10:35
PROVIDERS: PCP Internal Medicine Adolescent Medicine; Visit Provider Nurse Practitioner
DX: R06.00 Dyspnea, unspecified (principal); R53.83 Other fatigue; E78.5 Hyperlipidemia, unspecified; I10 Essential (primary) hypertension; I51.89 Other ill-defined heart diseases; I63.9 Cerebral infarction, unspecified
CPT/HCPCS: 36415; 80048; 85025

== ENCOUNTER → 2022-11-06 11:29 | Outpatient (CLI) | payer BC, MEDICARE, SELFPAY ==
[2022-11-06 11:48] LABS: MANUAL DIFFERENTIAL MANUAL DIFFERENTIAL (MANUAL DIFF)
[2022-11-06 12:03] LABS: Basophils # 0.1 K/mm3 (0-0.2); Basophils % 0.5 % (0.1-2.0); Eosinophils # 0.3 K/mm3 (0.0-0.4); Hematocrit 40.4 % (42.0-52.0); Hemoglobin 13.3 g/dL (14.1-18.0); Lymphocytes # 2.2 K/mm3 (0.7-4.5); Lymphocytes % 25.2 % (10-50); Mean Corpuscular HGB Conc 32.8 g/dL (31.8-35.4); Mean Corpuscular Hemoglobin 29.1 pg (27.0-31.2); Mean Corpuscular Volume 88.7 fl (80-94); Mean Platelet Volume 10.2 fl (7.4-10.4); Monocytes # 0.4 K/mm3 (0.1-1.0); Monocytes % 4.7 % (1.7-9.3); Neutrophils # 5.8 K/mm3 (1.8-7.8); Neutrophils % 66.6 % (37.0-80.0); Red Blood Count 4.56 M/mm3 (4.60-6.20); Red Cell Distribution Width 14.8 % (11.5-17.5); White Blood Count 8.7 K/mm3 (4.8-10.8)
[2022-11-06 12:29] LABS: Anion Gap 15.5 mEq/L (5-15); Blood Urea Nitrogen 20 mg/dl (9-20); Calcium 9.4 mg/dl (8.4-10.2); Carbon Dioxide 26 mmol/L (22.0-30.0); Chloride 96 mmol/L (98-107); Estimated Glomerular Filt Rate 86 ml/min (>60); GFR (African American) 105 ML/MIN (>60); Potassium 5.5 mmoL/L (3.5-5.1); Sodium 132 mmol/L (136-145)
[2022-11-06 12:51] LABS: Platelet Count 43 K/mm3 (142-424)
[2022-11-06 13:03] LABS: Glucose 572 mg/dl (74-100)
[2022-11-06 13:04] LABS: Total Cells Counted 100
[2022-11-06 13:05] LABS: Eosinophils % 2 % (0-3); Lymphocytes % 33 % (10-50); Monocytes % 1 % (2-9); Neutrophils % 64 % (42-76); Platelet Estimate Marked Decrease; RBC Morphology Normal
[2022-11-06 13:50] LABS: Troponin I < 0.01 ng/ml (0.00-0.034)
== END ==
PROVIDERS: PCP Internal Medicine Adolescent Medicine; Visit Provider Physician Assistant
DX: R06.00 Dyspnea, unspecified (principal); R07.9 Chest pain, unspecified; I25.10 Atherosclerotic heart disease of native coronary artery without angina pectoris; I10 Essential (primary) hypertension; E78.5 Hyperlipidemia, unspecified; R53.83 Other fatigue
CPT/HCPCS: 36415; 80048; 84484; 85007; 85014; 85018; 85048; 85049

== ENCOUNTER → 2022-11-29 15:41 | Outpatient (CLI) | payer MEDICARE, SELFPAY ==
--- NOTE | 2022-11-29 15:54 | CA_ITS ---
APPROVED REPORT EXAM: Comprehensive 2D, Doppler, and color-flow Echocardiogram Professor Of Musicology: Karla Arias, RT(R) Ht: 5 ft 9 in Wt: 210lbs BSA: 2.11 BP: 150/78 mmHg Indications: CP, HTN, edema, WRAY, bilateral leg edema, dresslers syndrome, thoracic outlet syndrom, DD, dyspnea, NSTEMI, thrombocytopenia 2D Dimensions LVOT 1.81 cm (M/F) 1.5-2.5 LA Volume 33.90 mL LA Volume Index 16.07 mL/m2 (M/F) 16-34 M-Mode Dimensions RVDd 3.69 cm (0.9-2.6) LA Diam 4.35 cm (1.9-4.0) LVDd 4.50 cm (3.5-5.7) Ao Diam 2.90 cm (2.0-3.7) LVDs 3.35 cm (3.5-5.7) IVSd 1.06 cm (0.6-1.1) PWd 0.98 cm (0.6-1.1) EF (Teich) 50.40% FS 25.60% EDV (Teich) 92.40 mL ESV (Teich) 45.80 mL LV Diastology E Decel Time 187.00 (160-240 msec) E/A Ratio 0.6 MED E' 7.10 (< 7 cm/sec) E'/MED E' Ratio 6.01 (>14) LAT E' 10.00 (<10 cm/sec) E/LAT E' Ratio 4.27 (>14) Mitral Valve MV E Max Pankaj. 43.00 (40-130 cm/s) MV A Velocity 71.00 (40-130 cm/s) E/A Ratio 0.60 MV Decel. Time 187.00 (160-240 ms) MV PHT 55.00 ms Left Ventricle The left ventricle is normal size. The LV apex is not well visualized due to near-field clutter artifact. The left ventricular systolic function is normal. The left ventricular ejection fraction is within the normal range. There is increased LV wall thickness. Moderate inferior and inferolateral hypokinesis is present. The left ventricular diastolic function is normal. LVEF is 50-55%. Right Ventricle The right ventricle is mildly dilated. The right ventricular systolic function is normal. Atria The left atrium size is normal. The right atrium size is normal. There is no Doppler evidence of interatrial shunt. Aortic Valve The aortic valve is mildly thickened. There is no aortic valvular stenosis. No aortic regurgitation is present. Mitral Valve Mild mitral annular calcification (MAC) is present. The mitral valve is normal in structure. No evidence of mitral valve stenosis. Trace mitral regurgitation. Tricuspid Valve The tricuspid valve leaflets are thin and pliable. Trace tricuspid regurgitation. There is insufficient TR jet to estimate RVSP. Pulmonic Valve The pulmonary valve is normal in structure. Mild pulmonic regurgitation. Great Vessels The aortic root is normal in size. The ascending aorta is normal in size. IVC is normal in size and collapses >50% with inspiration. Pericardium There is no pericardial effusion. Other Information Study Quality: Fair Conclusion Normal biventricular systolic function. LV apex is not well visualized due to near-field clutter artifact. Moderate inferior and inferolateral hypokinesis. Mild RV dilation. No significant valvular stenosis or regurgitation. Electronically signed by : Kirsty Bains, 12/04/2022 12:30:27
[2022-11-29 16:57] LABS: Basophils # 0.1 K/mm3 (0-0.2); Basophils % 0.6 % (0.1-2.0); Eosinophils # 0.5 K/mm3 (0.0-0.4); Eosinophils % 4.9 % (0.1-12.0); Hematocrit 45.5 % (42.0-52.0); Hemoglobin 13.8 g/dL (14.1-18.0); Lymphocytes # 2.6 K/mm3 (0.7-4.5); Lymphocytes % 26.8 % (10-50); Mean Corpuscular HGB Conc 30.4 g/dL (31.8-35.4); Mean Corpuscular Hemoglobin 27.7 pg (27.0-31.2); Mean Corpuscular Volume 91.1 fl (80-94); Mean Platelet Volume 12.1 fl (7.4-10.4); Monocytes # 0.4 K/mm3 (0.1-1.0); Monocytes % 4.5 % (1.7-9.3); Neutrophils # 6.2 K/mm3 (1.8-7.8); Neutrophils % 63.2 % (37.0-80.0); Red Blood Count 4.99 M/mm3 (4.60-6.20); Red Cell Distribution Width 14.4 % (11.5-17.5); White Blood Count 9.7 K/mm3 (4.8-10.8)
[2022-11-29 17:27] LABS: Blood Urea Nitrogen 25 mg/dl (9-20); Calcium 10.1 mg/dl (8.4-10.2); Carbon Dioxide 27 mmol/L (22.0-30.0); Chloride 99 mmol/L (98-107); Estimated Glomerular Filt Rate 76 ml/min (>60); GFR (African American) 93 ML/MIN (>60); Sodium 138 mmol/L (136-145)
[2022-11-29 17:50] LABS: Glucose 514 mg/dl (74-100)
[2022-11-29 17:54] LABS: Platelet Count 24 K/mm3 (142-424)
== END ==
PROVIDERS: PCP Internal Medicine Adolescent Medicine; Visit Provider Physician Assistant
DX: R06.00 Dyspnea, unspecified (principal); R07.89 Other chest pain; I25.118 Atherosclerotic heart disease of native coronary artery with other forms of angina pectoris; I10 Essential (primary) hypertension; D69.6 Thrombocytopenia, unspecified; E78.5 Hyperlipidemia, unspecified; I63.9 Cerebral infarction, unspecified; R53.83 Other fatigue; E78.2 Mixed hyperlipidemia; E11.69 Type 2 diabetes mellitus with other specified complication; Z79.4 Long term (current) use of insulin
CPT/HCPCS: 36415; 80048; 85025; 93306

== ENCOUNTER → 2022-12-06 15:41 | Outpatient (CLI) | payer MEDICARE, SELFPAY ==
--- NOTE | 2022-12-06 15:49 | XR_ITS ---
FINAL REPORT CLINICAL HISTORY: CHRONIC COUGH COMPARISON: 09/13/2022 FINDINGS: TWO-VIEW CHEST The heart size is normal. The mediastinum is normal. There are minimal chronic changes at the bases. Thoracic stimulator lead is seen in the lower thoracic spine. There is no pneumothorax. IMPRESSION: No acute cardiopulmonary process. Reviewed, Interpreted and Dictated by Franky Diggs MD Transcribed by Ya Gibson Authenticated and [facility]
[2022-12-06 17:11] LABS: Basophils # 0.1 K/mm3 (0-0.2); Basophils % 0.6 % (0.1-2.0); Eosinophils # 0.4 K/mm3 (0.0-0.4); Eosinophils % 3.9 % (0.1-12.0); Hematocrit 47.7 % (42.0-52.0); Lymphocytes # 3.2 K/mm3 (0.7-4.5); Mean Corpuscular HGB Conc 31.4 g/dL (31.8-35.4); Mean Corpuscular Hemoglobin 27.8 pg (27.0-31.2); Mean Corpuscular Volume 88.5 fl (80-94); Monocytes # 0.5 K/mm3 (0.1-1.0); Monocytes % 5.2 % (1.7-9.3); Neutrophils # 5.9 K/mm3 (1.8-7.8); Neutrophils % 58.4 % (37.0-80.0); Red Blood Count 5.39 M/mm3 (4.60-6.20); Red Cell Distribution Width 14.7 % (11.5-17.5); White Blood Count 10.2 K/mm3 (4.8-10.8)
[2022-12-06 17:18] LABS: Platelet Count 42 K/mm3 (142-424)
[2022-12-06 18:00] LABS: Alanine Aminotransferase 41 U/L (12-78); Albumin Level 4.3 g/dl (3.5-5.0); Albumin/Globulin Ratio 1.1 (1.1-1.8); Alkaline Phosphatase 163 U/L (38-126); Anion Gap 16.5 mEq/L (5-15); Aspartate Amino Transferase 36 U/L (17-59); Bilirubin,Total 0.2 mg/dl (0.2-1.3); Blood Urea Nitrogen 34 mg/dl (9-20); Calcium 10.2 mg/dl (8.4-10.2); Carbon Dioxide 20 mmol/L (22.0-30.0); Chloride 109 mmol/L (98-107); Estimated Glomerular Filt Rate 69 ml/min (>60); GFR (African American) 83 ML/MIN (>60); Globulin 3.8 g/dL (1.3-3.2); Glucose 139 mg/dl (74-100); Potassium 5.5 mmoL/L (3.5-5.1); Sodium 140 mmol/L (136-145); Total Protein,Serum 8.1 g/dl (6.3-8.2)
[2022-12-08 16:15] LABS: Peripheral Smear Review Scanned Result
[2022-12-11 17:09] LABS: RMSF, IgG, EIA Equivocal (Negative)
[2022-12-11 23:07] LABS: Rocky Mtn Spotted Fever, IgM 0.39 index (0.00-0.89)
[2022-12-12 00:09] LABS: IgG P18 Ab. Absent (.); IgG P23 Ab. Absent (.); IgG P28 Ab. Absent (.); IgG P30 Ab. Absent (.); IgG P39 Ab. Absent (.); IgG P41 Ab. Absent (.); IgG P45 Ab. Absent (.); IgG P58 Ab. Absent (.); IgG P66 Ab. Absent (.); IgG P93 Ab. Absent (.); IgM P23 Ab. Absent (.); IgM P39 Ab. Present (.); IgM P41 Ab. Present (.); Lyme IgG WB Interp. Negative (.); Lyme IgM WB Interp. Positive (.)
== END ==
PROVIDERS: PCP Internal Medicine Adolescent Medicine; Visit Provider Physician Assistant
DX: R05.3 Chronic cough (principal); R52 Pain, unspecified; D69.6 Thrombocytopenia, unspecified
CPT/HCPCS: 36415; 71046; 80053; 85025; 86609; 86617